=== PATIENT | female | born 1965 | race Caucasian/White ===

== ENCOUNTER 2018-10-28 14:27 | Inpatient (IN) | payer OTHER ==
[~2018-10-28] VITALS: Ht 154.9 cm; Wt 106.4 kg
[2018-10-28 19:52] VITALS: PULSE 91
[2018-10-28 20:00] VITALS: BP 133/77; PULSE 87; PULSE 95; RESP 18
[2018-10-28 20:11] VITALS: Ht 154.9 cm; Wt 106.4 kg
[2018-10-28] MEDS ORDERED: ACET1TAB40 PO (20:24)
[2018-10-28] MEDS ORDERED: AZIT250T13 PO (20:24)
[2018-10-28] MEDS ORDERED: ENOX40DI12 SQ (20:24)
[2018-10-28] MEDS ORDERED: MONT10TA24 PO (20:24)
[2018-10-28] MEDS ORDERED: BUDE0.5A INHALATION (20:24)
[2018-10-28] MEDS ORDERED: DOCU-144 PO (20:24)
[2018-10-28] MEDS ORDERED: NYST50002 PO (20:24)
[2018-10-28] MEDS ORDERED: PRED20TA PO (20:24)
[2018-10-28] MEDS ORDERED: ALBU2.5V3 NEB (20:24)
[2018-10-28] MEDS ORDERED: ONDANSETRON 4 MG INJ IV PRN (20:30)
[2018-10-28] MEDS ORDERED: hydrALAzine 20 MG INJ IV PRN (20:30)
[2018-10-28] MEDS ORDERED: ALBUTEROL/IPRATROPIUM (NEB) 3 ML AMP HHN PRN (20:30)
[2018-10-28] MEDS ORDERED: ACETAMINOPHEN 325 MG TAB PO PRN (20:30)
[2018-10-28] MEDS: NYSTATIN SUSP 5 ML CUP PO SCH (21:29)
[2018-10-28] MEDS: DOCUSATE SODIUM 100 MG CAP PO SCH (22:28)
[2018-10-28] MEDS: MONTELUKAST 10 MG TAB PO SCH (22:28)
[2018-10-28] MEDS: HYDROCODONE/APAP (5/325) TAB PO SCH (22:29)
[2018-10-28] MEDS: ALBUTEROL 0.083% (NEB) 2.5 MG/3 ML AMP NEB SCH (22:39)
[2018-10-28] MEDS: BUDESONIDE (NEB) 0.5MG/2ML AMP NEB SCH (22:41)
[2018-10-28 23:00] VITALS: PULSE 105
[2018-10-29] VITALS (9 sets, daily range): BP systolic 128–165; BP diastolic 75–86; PULSE 88–104; RESP 18–19
[2018-10-29] MEDS: ALBUTEROL 0.083% (NEB) 2.5 MG/3 ML AMP NEB SCH ×2 (03:41→07:43)
[2018-10-29] MEDS: DOCUSATE SODIUM 100 MG CAP PO SCH ×2 (08:09→21:00)
[2018-10-29] MEDS: predniSONE 20 MG TAB PO SCH (08:09)
[2018-10-29] MEDS: NYSTATIN SUSP 5 ML CUP PO SCH ×4 (08:09→20:56)
[2018-10-29] MEDS: HYDROCODONE/APAP (5/325) TAB PO SCH ×3 (08:09→20:55)
[2018-10-29] MEDS: AZITHROMYCIN 250 MG TAB PO SCH (08:09)
[2018-10-29] MEDS ORDERED: ENOXAPARIN 40 MG/0.4 ML SYG SC SCH (09:00)
[2018-10-29] MEDS: BUDESONIDE (NEB) 0.5MG/2ML AMP NEB SCH ×2 (09:46→21:09)
[2018-10-29] MEDS ORDERED: KETOROLAC 15 MG INJ IV PRN (11:00)
--- NOTE | 2018-10-29 11:00 | QN ---
Documentation Comment seen and examined AMERICO MCCLAIN MD Oct 29, 2018 11:00
--- NOTE | 2018-10-29 11:14 | CONS ---
Assessment/Plan Assessment/Plan Assessment/Plan (Daily) Chest x-ray and labs are pending. Assessment and recommendations; 1. Patient admitted for acute bronchitis and asthma exacerbation as she ran out of her medications at home. Currently on appropriate treatment regimen. Continue current supportive care. Further recommendations once chest x-ray and lab results are obtained. Patient likely will need to have a sleep study done. Consultation Date/Type/Reason Admit Date/Time Oct 28, 2018 at 18:39 Date of Consultation: Oct 29, 2018 Type of Consult Pulmonary Pulmonary consult requested for evaluation of asthma exacerbation with acute b ronchitis. Patient is a pleasant 53-year-old lady who came into the hospital yesterday with a 5-day history of increasing chest congestion wheezing shortness of breath. According to patient she ran out of her inhalers about a week ago with increasing symptoms. Patient also was admitted at [facility] last week for 2 days and was discharged home in stable condition but again her condition became worse requiring her to come back to the hospital and was subsequently admitted. According to her she is feeling better since admission. Denies any chest pain, fever, chills, body aches or myalgias. Shortness of breath, coughing and wheezing have improved. According to the patient she is in usually good health and her asthma is well controlled as long as she takes her medications regularly. Past medical history; 1. Lifelong asthma. 2. History of hypertension. Medications; reviewed. Allergies; as outlined above. Social history; remote history of scant smoking. Family history; patient is single, lives with her daughter. Has 3 children. Occupational history; patient is on disability. Review of systems; denies any headache, seizures, sinus symptoms. Any postnasal drip. Any visual changes. Denies any sore throat, chest pain, angina, coughing, shortness of breath and wheezing have improved. Complains of very scant clear sputum production. Denies any fever or chills. Denies any abdominal pain, nausea vomiting. Any melena or hematochezia. Any orthopnea. Denies any edema. Any weight change. Any urinary symptoms. Does complain of loud snoring and excessive daytime sleepiness. General exam; middle-aged female, awake alert, currently in no distress. Date/Time of Note DATE: 10/29/18 TIME: 11:10 Past Medical History Home Meds Reported Medications Prednisone* (Prednisone*) 20 Mg Tab, 40 MG PO DAILY, TAB 10/28/18 Nystatin (Nystatin) 500,000 Unit Tablet, [id number] UNIT PO QID, TAB 10/28/18 Montelukast Sodium* (Montelukast Sodium*) 10 Mg Tablet, 10 MG PO QHS, #30 TAB 10/28/18 Enoxaparin Sodium (Enoxaparin Sodium) 40 Mg/0.4 Ml Syringe, 40 MG SQ DAILY, SYR 10/28/18 Docusate Sodium* (Colace*) 100 Mg Capsule, 100 MG PO BID, #60 CAP 10/28/18 Azithromycin* (Azithromycin*) 250 Mg Tablet, 250 MG PO DAILY, #4 TAB 10/28/18 Albuterol Sulfate* (Albuterol Sulfate* Neb) 0.083%-3 Ml Neb, 2.5 MG NEB Q6, #30 VIAL 10/28/18 Budesonide* (Budesonide*) 0.5 Mg/2 Ml Ampul.neb, 0.5 MG INHALATION BID, AMP 10/28/18 Acetaminophen with Codeine (Acetaminophen-Cod #3 Tablet) 1 Each Tablet, 1 TAB PO TID, #7 TAB 10/28/18 Medications Current Medications Acetaminophen/ Hydrocodone Bitart ([place] (5/325)) 1 tab TID PO Last administered on 10/29/18 08:09; Admin Dose 1 TAB; Start 10/28/18 at 22:00 Albuterol (Proventil 0.083% (Neb)) 2.5 mg Q6H RESP THERAPY NEB Last administered on 10/29/18at 07:43; Admin Dose 2.5 MG; Start 10/28/18 at 21:20 Azithromycin (Zithromax) 250 mg DAILY PO Last administered on 10/29/18 08:09; Admin Dose 250 MG; Start 10/29/18 at 09:00 Budesonide (Pulmicort (Neb)) 0.5 mg BID RESP THERAPY NEB Last administered on 10/29/18 09:46; Admin Dose 0.5 MG; Start 10/28/18 at 21:21 Docusate Sodium (Colace) 100 mg BID PO Last administered on 10/29/18 08:09; Admin Dose 100 MG; Start 10/28/18 at 21:00 Enoxaparin Sodium (Lovenox) 40 mg DAILY SC Last administered on 10/29/18at 0 9:04; Admin Dose 40 MG; Start 10/29/18 at 09:00 Montelukast Sodium (Singulair) 10 mg QHS PO Last administered on 10/28/18at 22:2 8; Admin Dose 10 MG; Start 10/28/18 at 21:00 Prednisone (Prednisone) 40 mg DAILY PO Last administered on 10/29/18at 08:09; Admin Dose 40 MG; Start 10/29/18 at 09:00 Nystatin (Nystatin Susp) 5 ml QID PO Last administered on 10/29/18at 08:09; Admin Dose 5 ML; Start 10/28/18 at 21:29 Acetaminophen (Tylenol Tab) 650 mg Q4H PRN PO MILD PAIN(1-3)OR ELEVATED TEMP; Start 10/28/18 at 20:30 Acetaminophen/ Hydrocodone Bitart ([place] (5/325)) 1 tab Q6H PRN PO MODERATE PAIN LEVEL 4-6; Start 10/28/18 at 20:30 Hydralazine HCl (Apresoline) 10 mg Q6H PRN IV SBP > 160; Start 10/28/18 at 20:30 Ondansetron HCl (Zofran Inj) 4 mg Q4H PRN IV NAUSEA AND/OR VOMITING; Start 10/28/18 at 20:30 Ketorolac Tromethamine (Toradol) 15 mg Q8 PRN IV PAIN; Start 10/29/18 at 11:00; Stop 11/01/18 at 10:59; Status UNV Albuterol (Proventil 0.083% (Neb)) 2.5 mg Q4H RESP THERAPY HHN ; Start 10/29/18 at 13:00; Status UNV Ipratropium [place] (Atrovent 0.02% (Neb)) 0.5 mg Q4H RESP THERAPY HHN ; Start 10/29/18 at 13:00; Status UNV Miscellaneous Information (* Miscellaneous Pharmacy Order) Discontinue current oral sulfonylur... ONCE ONCE XX ; Start 10/29/18 at 11:30; Stop 10/29/18 at 11:31; Status UNV Diagnostic Test (Pha) (Accu-Chek) 1 ea 02 XX ; Start 10/30/18 at 02:00; Status UNV Miscellaneous Information (* Miscellaneous Pharmacy Order) HYPOGLYCEMIA PROTOCOL w... ONCE ONCE XX ; Start 10/29/18 at 11:30; Stop 10/29/18 at 11:31; Status UNV Insulin Aspart (Novolog Insulin Pen) NOVOLOG *MILD* ALGORITHM WITH MEALS BEDTIME SC ; Start 10/29/18 at 11:50; Status UNV Miscellaneous Information (* Miscellaneous Pharmacy Order) Discontinue all previ... ONCE ONCE XX ; Start 10/29/18 at 11:30; Stop 10/29/18 at 11:31; Status UNV Allergies: Coded Allergies: lorazepam (Verified Allergy, Unknown, 10/28/18) Social History Smoking Status: Never smoker Exam/Review of Systems Exam Vitals Vital Signs Date Temp Pulse Resp B/P (MAP) Pulse Ox O2 O2 Flow FiO2 Time Delivery Rate 10/29/18 95 16 94 Nasal 4.0 09:46 Cannula 10/29/18 98.3 128/86 07:50 (100) 10/29/18 33 03:41 Intake and Output 10/28/18 10/28/18 10/29/18 1515:00 23:00 07:00 IntakeIntake Total 650 ml BalanceBalance 650 ml Exam H EENT exam; supple neck, no JVD. No lymphadenopathy. Midline trachea. No thyromegaly. Patient has carious teeth. Pupils are small bilaterally. Chest exam; diminished breath sounds throughout with mild expiratory wheezing bilaterally. S1-S2 audible, no murmurs. Regular rhythm. Abdomen exam; soft, nontender. No organomegaly. Bowel sounds audible. Extremity exam; no peripheral edema or clubbing. [employer] exam; no focal deficit. Medications Medication Current Medications Acetaminophen/ Hydrocodone Bitart ([place] (5/325)) 1 tab TID PO Last administered on 10/29/18 08:09; Admin Dose 1 TAB; Start 10/28/18 at 22:00 Albuterol (Proventil 0.083% (Neb)) 2.5 mg Q6H RESP THERAPY NEB Last administered on 10/29/18at 07:43; Admin Dose 2.5 MG; Start 10/28/18 at 21:20 Azithromycin (Zithromax) 250 mg DAILY PO Last administered on 10/29/18 08:09; Admin Dose 250 MG; Start 10/29/18 at 09:00 Budesonide (Pulmicort (Neb)) 0.5 mg BID RESP THERAPY NEB Last administered on 10/29/18 09:46; Admin Dose 0.5 MG; Start 10/28/18 at 21:21 Docusate Sodium (Colace) 100 mg BID PO Last administered on 10/29/18 08:09; Admin Dose 100 MG; Start 10/28/18 at 21:00 Enoxaparin Sodium (Lovenox) 40 mg DAILY SC Last administered on 10/29/18 09:04; Admin Dose 40 MG; Start 10/29/18 at 09:00 Montelukast Sodium (Singulair) 10 mg QHS PO Last administered on 10/28/18 22:28; Admin Dose 10 MG; Start 10/28/18 at 21:00 Prednisone (Prednisone) 40 mg DAILY PO Last administered on 10/29/18 08:09; Admin Dose 40 MG; Start 10/29/18 at 09:00 Nystatin (Nystatin Susp) 5 ml QID PO Last administered on 10/29/18 08:09; Admin Dose 5 ML; Start 10/28/18 at 21:29 Acetaminophen (Tylenol Tab) 650 mg Q4H PRN PO MILD PAIN(1-3)OR ELEVATED TEMP; Start 10/28/18 at 20:30 Acetaminophen/ Hydrocodone Bitart ([place] (5/325)) 1 tab Q6H PRN PO MODERATE PAIN LEVEL 4-6; Start 10/28/18 at 20:30 Hydralazine HCl (Apresoline) 10 mg Q6H PRN IV SBP > 160; Start 10/28/18 at 20:30 Ondansetron HCl (Zofran Inj) 4 mg Q4H PRN IV NAUSEA AND/OR VOMITING; Start 10/28/18 at 20:30 Ketorolac Tromethamine (Toradol) 15 mg Q8 PRN IV PAIN; Start 10/29/18 at 11:00; Stop 11/01/18 at 10:59; Status UNV Albuterol (Proventil 0.083% (Neb)) 2.5 mg Q4H RESP THERAPY HHN ; Start 10/29/18 at 13:00; Status UNV Ipratropium [place] (Atrovent 0.02% (Neb)) 0.5 mg Q4H RESP THERAPY HHN ; Start 10/29/18 at 13:00; Status UNV Miscellaneous Information (* Miscellaneous Pharmacy Order) Discontinue current oral sulfonylur... ONCE ONCE XX ; Start 10/29/18 at 11:30; Stop 10/29/18 at 11:31; Status UNV Diagnostic Test (Pha) (Accu-Chek) XX ; Start 10/30/18 at 02:00; Status UNV Miscellaneous Information (* Miscellaneous Pharmacy Order) HYPOGLYCEMIA PROTOCOL w... ONCE ONCE XX ; Start 10/29/18 at 11:30; Stop 10/29/18 at 11:31; Status UNV Insulin Aspart (Novolog Insulin Pen) NOVOLOG *MILD* ALGORITHM WITH MEALS BEDTIME SC ; Start 10/29/18 at 11:50; Status UNV Miscellaneous Information (* Miscellaneous Pharmacy Order) Discontinue all previ... ONCE ONCE XX ; Start 10/29/18 at 11:30; Stop 10/29/18 at 11:31; Status UNV MARCIA SILVA Oct 29, 2018 11:14
[2018-10-29] MEDS ORDERED: DEXTROSE 50% 50 ML SYRINGE IV PRN ×2 (11:30)
[2018-10-29] MEDS ORDERED: GLUCOSE GEL 15 GRAM TUBE PO PRN ×2 (11:30)
[2018-10-29] MEDS ORDERED: GLUCAGON 1 MG INJ IM PRN (11:30)
[2018-10-29] MEDS ORDERED: GLUCOSE GEL 15 GRAM TUBE BUCCAL PRN (11:30)
--- NOTE | 2018-10-29 11:32 | HP ---
DATE OF ADMISSION: 10/28/2018 CHIEF COMPLAINT: Shortness of breath, respiratory distress. HISTORY OF PRESENT ILLNESS: A 53-year-old female with a past medical history of COPD/sleep apnea, as thma, morbid obesity, hypertension who presented to the emergency department at [facility] o n 10/22/2018 secondary to respiratory distress. The patient was recently admitted there and after sh e was discharged she stayed 3 days out of the hospital. After that, she went back again as she was h aving chest tightness, wheezing. She called the paramedics and she was noted to be blue and having t rouble breathing. Since then, the patient has been in [facility]. There the patient was fo und to have a white count of 10.7, hemoglobin 18.3. Chest x-ray showed no cardiomegaly, no infiltrat e, no pulmonary vascular congestions. EKG was within normal limits. The patient was started on nebs around the clock started on IV antibiotics and steroids. The patient continues to be in respiratory distress requiring BiPAP and high amount of oxygen. Finally, the patient was stable and was transfe rred to [facility] on 10/28/2018 secondary to insurance reasons. The patient had a lso been followed by pulmonary there. Currently, the patient feels much better. The patient is able to speak full sentences, complaining of slight shortness of breath. She denies any cough, any fever s and chills. PAST MEDICAL HISTORY: 1. Asthma. 2. Chronic obstructive pulmonary disease. 3. Cushingoid side effect of the steroids. 4. Hypertension. 5. History of migraines. 6. History of morbid obesity. 7. History of neck pain. PAST SURGICAL HISTORY: , left foot bunion surgery. ALLERGIES: 1. LEVOFLOXACIN 2. LORAZEPAM. SOCIAL HISTORY: The patient is an ex-smoker, smoked 1 pack per day for many years, quit many years a go. She denied any history of alcohol or any recreational drug use. Currently she is , live s with her daughter in [facility]. The patient was visiting her family here when she had come to the hospital. REVIEW OF SYSTEMS: The patient denies any shortness of breath, any cough, any abdominal pain, nausea , vomiting, diarrhea. She denies any headache. Patient has generalized body ache. She denies any h ematemesis, any melena, any bright or rectum. PHYSICAL EXAMINATION: VITAL SIGNS: Currently, blood pressure 128/86, afebrile, heart rate 88, respirations 18, saturating 95% on 4 liters. GENERAL: The patient is awake, alert, oriented. He is able to speak full sentences, slightly tachyp neic. HEENT: Normocephalic, atraumatic. Extraocular movements are intact. NECK: Thick. LUNGS: Decreased breath sounds bilaterally with few scattered rhonchi. HEART: Tachycardic. ABDOMEN: Obese, soft, nontender, nondistended. EXTREMITIES: No clubbing, cyanosis, or edema. However, the patient has multiple bruising noted of t he bilateral hands. DIAGNOSTIC DATA: At [facility] showed white count of 5.7, hemoglobin 16.9, hematocrit 51, p latelet count 122. Sodium 139, potassium 3.6, chloride 97, bicarbonate 31, BUN of 27, creatinine 0.3 . ASSESSMENT: This is a 53-year-old female presenting with: 1. Acute on chronic respiratory failure with hypercapnia and hypoxemia likely secondary to underlyin g chronic obstructive pulmonary disease. 2. Morbid obesity. 3. Hyperglycemia, likely secondary to steroids. 4. Polycythemia, likely to chronic hypoxemia. 5. History of metabolic alkalosis. 6. History of asthma. 7. Hypertension. 8. History of migraines. PLAN: At this period of time, the patient is admitted to telemetry. We will get labs. The patient will be continued on prednisone, antibiotics and nebs around the clock. We will also get a chest x-r ay. Pulmonary consultation has been requested. Rest of the treatment will depend on the patient's h ospitalization course. Dictated By: AMERICO MCCLAIN RB/ED Conf#: [id number] DID#: [id number] CC: LOUIS LOPEZ MD; RONAK RUIZ MD;*[facility]*
[2018-10-29] MEDS: INSULIN ASPART [NOVOLOG] 3 ML PEN SC SCH ×3 (12:15→21:00)
[2018-10-29] MEDS: IPRATROPIUM (NEB) 0.5 MG/2.5 ML AMP HHN SCH ×3 (13:13→21:09)
[2018-10-29] MEDS: ALBUTEROL 0.083% (NEB) 2.5 MG/3 ML AMP HHN SCH ×3 (13:13→21:09)
[2018-10-29] MEDS: GUAIFENESIN/DM 5ML CUP PO PRN (13:53)
[2018-10-29] MEDS: MONTELUKAST 10 MG TAB PO SCH (20:56)
[2018-10-30] VITALS (12 sets, daily range): BP systolic 98–164; BP diastolic 56–97; PULSE 84–120; RESP 18–20
[2018-10-30] MEDS: ALBUTEROL 0.083% (NEB) 2.5 MG/3 ML AMP HHN SCH ×6 (00:51→20:22)
[2018-10-30] MEDS: IPRATROPIUM (NEB) 0.5 MG/2.5 ML AMP HHN SCH ×6 (00:51→20:22)
[2018-10-30] MEDS: ACCU-CHEK XX SCH (02:00)
[2018-10-30] MEDS: HYDROCODONE/APAP (5/325) TAB PO PRN (07:06)
[2018-10-30] MEDS: DOCUSATE SODIUM 100 MG CAP PO SCH ×2 (07:41→21:13)
[2018-10-30] MEDS: INSULIN ASPART [NOVOLOG] 3 ML PEN SC SCH ×4 (07:41→21:15)
[2018-10-30] MEDS: BUDESONIDE (NEB) 0.5MG/2ML AMP NEB SCH ×2 (08:22→20:23)
[2018-10-30] MEDS: AZITHROMYCIN 250 MG TAB PO SCH (08:46)
[2018-10-30] MEDS: NYSTATIN SUSP 5 ML CUP PO SCH ×4 (08:46→21:14)
[2018-10-30] MEDS: CEFTRIAXONE 1 GM/50 ML (PMX) 50 ML IVPB SCH (08:47)
[2018-10-30] MEDS: predniSONE 20 MG TAB PO SCH (08:47)
[2018-10-30] MEDS: GUAIFENESIN/DM 5ML CUP PO PRN (08:47)
[2018-10-30] MEDS: HYDROCODONE/APAP (5/325) TAB PO SCH ×3 (09:00→21:13)
--- NOTE | 2018-10-30 10:24 | PN ---
Date/Time of Note Date/Time of Note DATE: 10/30/18 TIME: 10:22 Assessment/Plan VTE Prophylaxis Risk score (from Nsg)>0 risk: 6 SCD applied (from Nsg): Yes Pharmacological prophylaxis: NA/contraindicated Pharm contraindication: low risk/ambulating Lines/Catheters IV Catheter Type (from Nrsg): Peripheral IV Urinary Cath still in place: Yes Reason Cath still needed: urinary retention Assessment/Plan Assessment/Plan his is a 53-year-old female presenting with: 1. Acute on chronic respiratory failure with hypercapnia and hypoxemia likely secondary to underlying chronic obstructive pulmonary disease. 2. Morbid obesity. 3. Hyperglycemia, likely secondary to steroids. 4. Polycythemia, likely to chronic hypoxemia. 5. History of metabolic alkalosis. 6. History of asthma. 7. Hypertension. 8. History of migraines. Plan -Chest x-ray shows bilateral opacities secondary to pneumonia versus CHF -Add Rocephin continue with azithromycin -We will get echo -Change prednisone to Solu-Medrol secondary to worsening lung exam -Continue with nebs [id number] -Insulin sliding scale -Repeat ABG -Pulmonary recs -Refuses Lovenox due to bruising Result Diagram: 10/30/18 0640 10/30/18 0640 Results 24hrs Laboratory Tests Test 10/29/18 11:00 10/29/18 11:41 10/29/18 12:47 10/29/18 17:01 Blood Gas Blood arterial Specimen Source Arterial Blood 10/29/2018 11:25: Date Drawn 37 AM Arterial Blood pH 7.383 (Temp corrected) Arterial Blood 58.9 H pCO2 (Temp correct) Arterial Blood 53.7 *L pO2 (Temp corrected) Arterial Blood 34.3 H HCO3 Arterial Blood 6.7 H Base Excess Arterial Blood 89.4 L Oxygen Saturation Jon Test ACCEPTAB Arterial Blood Right Radial Gas Puncture Site Arterial 0.7 Blood Carboxyhemo globin Arterial Blood 0.3 Methemoglobin Blood Gas A-a O2 91.0 H Differential Oxyhemoglobin 88.5 L Percent Blood Gas 37.0 Temperature Blood Gas NASAL CAN[place]ULA Modality FiO2 30.0 Blood Gas [place] Critical Value Read Back Blood Gas TM Notified Whom Blood Gas 10/29/2018 11:35: Notified Time 16 AM Bedside Glucose 181 138 Sodium Level 138 Potassium Level 4.3 Chloride Level 98 Carbon Dioxide 35 H Level Anion Gap 5 Blood Urea 26 H Nitrogen Creatinine 0.50 Est Glomerular > 60 Filtrat Rate mL/min Glucose Level 225 H Calcium Level 8.9 Test 10/29/18 21:00 10/30/18 06:40 10/30/18 07:40 Bedside Glucose 173 105 White Blood Count 10.3 Red Blood Count 4.82 Hemoglobin 15.0 Hematocrit 46.6 Mean Corpuscular 96.7 Volume Mean Corpuscular 31.1 Hemoglobin Mean Corpuscular 32.2 Hemoglobin Concen t Red Cell 13.7 Distribution Width Platelet Count 178 Mean Platelet 10.1 Volume Immature 1.400 H Granulocytes % Neutrophils % 77.8 H Lymphocytes % 16.5 Monocytes % 3.8 Eosinophils % 0.3 Basophils % 0.2 Nucleated Red 0.0 Blood Cells % Immature 0.140 H Granulocytes # Neutrophils # 8.0 H Lymphocytes # 1.7 Monocytes # 0.4 Eosinophils # 0.0 Basophils # 0.0 Nucleated Red 0.0 Blood Cells # Sodium Level 141 Potassium Level 3.5 Chloride Level 101 Carbon Dioxide 37 H Level Anion Gap 3 L Blood Urea 20 Nitrogen Creatinine 0.40 L Est Glomerular > 60 Filtrat Rate mL/min Glucose Level 103 # Calcium Level 8.5 Subjective 24 Hr Interval Summary Free Text/Dictation Feels extremely weak today, slight shortness of breath Exam/Review of Systems Exam Vitals Vital Signs Date Temp Pulse Resp B/P (MAP) Pulse Ox O2 O2 Flow FiO2 Time Delivery Rate 10/30/18 3.0 08:23 10/30/18 90 08:23 10/30/18 20 92 Nasal 08:23 Cannula 10/30/18 98.1 146/84 07:29 (104) 10/30/18 40 01:05 Intake and Output 10/29/18 10/29/18 10/30/18 1515:00 23:00 07:00 IntakeIntake Total 800 ml 720 ml BalanceBalance 800 ml 720 ml Exam GENERAL: The patient is awake, alert, oriented. He is able to speak full sentences, slightly tachypneic. HEENT: Normocephalic, atraumatic. Extraocular movements are intact. NECK: Thick. LUNGS: Decreased breath sounds bilaterally with b/l rhonchi HEART: Tachycardic. ABDOMEN: Obese, soft, nontender, nondistended. EXTREMITIES: No clubbing, cyanosis, or edema. However, the patient has multiple bruising noted of the bilateral hands. Results Results 24hrs Laboratory Tests Test 10/29/18 11:00 10/29/18 11:41 10/29/18 12:47 10/29/18 17:01 Blood Gas Blood arterial Specimen Source Arterial Blood 10/29/2018 11:25: Date Drawn 37 AM Arterial Blood pH 7.383 (Temp corrected) Arterial Blood 58.9 H pCO2 (Temp correct) Arterial Blood 53.7 *L pO2 (Temp corrected) Arterial Blood 34.3 H HCO3 Arterial Blood 6.7 H Base Excess Arterial Blood 89.4 L Oxygen Saturation Jon Test ACCEPTAB Arterial Blood Right Radial Gas Puncture Site Arterial 0.7 Blood Carboxyhemo globin Arterial Blood 0.3 Methemoglobin Blood Gas A-a O2 91.0 H Differential Oxyhemoglobin 88.5 L Percent Blood Gas 37.0 Temperature Blood Gas [place] Modality FiO2 30.0 Blood Gas [place] Critical Value Read Back Blood Gas TM Notified Whom Blood Gas 10/29/2018 11:35: Notified Time 16 AM Bedside Glucose 181 138 Sodium Level 138 Potassium Level 4.3 Chloride Level 98 Carbon Dioxide 35 H Level Anion Gap 5 Blood Urea 26 H Nitrogen Creatinine 0.50 Est Glomerular > 60 Filtrat Rate mL/min Glucose Level 225 H Calcium Level 8.9 Test 10/29/18 21:00 10/30/18 06:40 10/30/18 07:40 Bedside Glucose 173 105 White Blood Count 10.3 Red Blood Count 4.82 Hemoglobin 15.0 Hematocrit 46.6 Mean Corpuscular 96.7 Volume Mean Corpuscular 31.1 Hemoglobin Mean Corpuscular 32.2 Hemoglobin Concen t Red Cell 13.7 Distribution Width Platelet Count 178 Mean Platelet 10.1 Volume Immature 1.400 H Granulocytes % Neutrophils % 77.8 H Lymphocytes % 16.5 Monocytes % 3.8 Eosinophils % 0.3 Basophils % 0.2 Nucleated Red 0.0 Blood Cells % Immature 0.140 H Granulocytes # Neutrophils # 8.0 H Lymphocytes # 1.7 Monocytes # 0.4 Eosinophils # 0.0 Basophils # 0.0 Nucleated Red 0.0 Blood Cells # Sodium Level 141 Potassium Level 3.5 Chloride Level 101 Carbon Dioxide 37 H Level Anion Gap 3 L Blood Urea 20 Nitrogen Creatinine 0.40 L Est Glomerular > 60 Filtrat Rate mL/min Glucose Level 103 # Calcium Level 8.5 Medications Medication Current Medications Acetaminophen/ Hydrocodone Bitart ([place] (5/325)) 1 tab TID PO Last administered on 10/29/18 20:55; Admin Dose 1 TAB; Start 10/28/18 at 22:00 Azithromycin (Zithromax) 250 mg DAILY PO Last administered on 10/30/18 08:46; Admin Dose 250 MG; Start 10/29/18 at 09:00 Budesonide (Pulmicort (Neb)) 0.5 mg BID RESP THERAPY NEB Last administered on 10/30/18 08:22; Admin Dose 0.5 MG; Start 10/28/18 at 21:21 Docusate Sodium (Colace) 100 mg BID PO Last administered on 10/29/18 08:09; Admin Dose 100 MG; Start 10/28/18 at 21:00 Montelukast Sodium (Singulair) 10 mg QHS PO Last administered on 10/29/18 20:56; Admin Dose 10 MG; Start 10/28/18 at 21:00 Nystatin (Nystatin Susp) 5 ml QID PO Last administered on 10/30/18 08:46; Admin Dose 5 ML; Start 10/28/18 at 21:29 Acetaminophen (Tylenol Tab) 650 mg Q4H PRN PO MILD PAIN(1-3)OR ELEVATED TEMP; Start 10/28/18 at 20:30 Acetaminophen/ Hydrocodone Bitart ([place] (5/325)) 1 tab Q6H PRN PO MODERATE PAIN LEVEL 4-6 Last administered on 10/30/18 07:06; Admin Dose 1 TAB; Start 10/28/18 at 20:30 Hydralazine HCl (Apresoline) 10 mg Q6H PRN IV SBP > 160; Start 10/28/18 at 20:30 Ondansetron HCl (Zofran Inj) 4 mg Q4H PRN IV NAUSEA AND/OR VOMITING; Start 10/28/18 at 20:30 Ketorolac Tromethamine (Toradol) 15 mg Q8 PRN IV PAIN; Start 10/29/18 at 11:00; Stop 11/01/18 at 10:59 Albuterol (Proventil 0.083% (Neb)) 2.5 mg Q4H RESP THERAPY HHN Last administered on 10/30/18 08:21; Admin Dose 2.5 MG; Start 10/29/18 at 13:00 Ipratropium [place] (Atrovent 0.02% (Neb)) 0.5 mg Q4H RESP THERAPY HHN Last administered on 10/30/18 08:21; Admin Dose 0.5 MG; Start 10/29/18 at 13:00 Diagnostic Test (Pha) (Accu-Chek) 1 ea 02 XX ; Start 10/30/18 at 02:00 Insulin Aspart (Novolog Insulin Pen) NOVOLOG *MILD* ALGORITHM WITH MEALS BEDTIME SC Last administered on 10/29/18 12:15; Admin Dose 2 UNIT; Start 10/29/18 at 12:30 Miscellaneous Information 1 ea NOTE XX ; Start 10/29/18 at 11:30 Glucose (Glutose) 15 gm Q15M PRN PO DECREASED GLUCOSE; Start 10/29/18 at 11:30 Glucose (Glutose) 22.5 gm Q15M PRN PO DECREASED GLUCOSE; Start 10/29/18 at 11:30 Dextrose (D50w Syringe) 25 ml Q15M PRN IV DECREASED GLUCOSE; Start 10/29/18 at 11:30 Dextrose (D50w Syringe) 50 ml Q15M PRN IV DECREASED GLUCOSE; Start 10/29/18 at 11:30 Glucagon (Glucagen) 1 mg Q15M PRN IM DECREASED GLUCOSE; Start 10/29/18 at 11:30 Glucose (Glutose) 15 gm Q15M PRN BUCCAL DECREASED GLUCOSE; Start 10/29/18 at 11:30 Guaifenesin/ Dextromethorphan (Robitussin Dm Liquid Cup) 10 ml Q4H PRN PO COUGH Last administered on 10/30/18 08:47; Admin Dose 10 ML; Start 10/29/18 at 12:30 Ceftriaxone Sodium 50 ml @ 100 mls/hr Q24H IVPB Last administered on 10/30/18 08:47; Admin Dose 100 MLS/HR; Start 10/30/18 at 08:30 Methylprednisolone Sodium Succinate (Solu-Medrol) 40 mg Q8 IV ; Start 10/30/18 at 14:00; Status AMERICO ESQUIVEL MD Oct 30, 2018 10:24
--- NOTE | 2018-10-30 10:55 | CONS ---
Assessment/Plan Assessment/Plan Assessment/Plan (Daily) Assessment and recommendations; 1. Patient admitted with exacerbation of asthma as well as acute bronchitis as she ran out of her medications at home. Clinically improving on current treatment regimen. 2. History of hypertension. 3. Likely chronic type II respiratory failure. 4. Likely underlying sleep apnea as well. Continue current supportive care. Patient will qualify for BiPAP for home use. Also will need to have a sleep study done as an outpatient. Steroid taper in 24 hours. Consultation Date/Type/Reason Admit Date/Time Oct 28, 2018 at 18:39 Initial Consult Date 10/29/18 Type of Consult Pulmonary Pulmonary consult requested for evaluation of asthma exacerbation with acute bronchitis. Patient is a pleasant 53-year-old lady who came into the hospital yesterday with a 5-day history of increasing chest congestion wheezing shortness of breath. According to patient she ran out of her inhalers about a week ago with increasing symptoms. Patient also was admitted at [facility] last week for 2 days and was discharged home in stable condition but again her condition became worse requiring her to come back to the hospital and was subsequently admitted. According to her she is feeling better since admission. Denies any chest pain, fever, chills, body aches or myalgias. Shortness of breath, coughing and wheezing have improved. According to the patient she is in usually good health and her asthma is well controlled as long as she takes her medications regularly. Past medical history; 1. Lifelong asthma. 2. History of hypertension. Medications; reviewed. Allergies; as outlined above. Social history; remote history of scant smoking. Family history; patient is single, lives with her daughter. Has 3 children. Occupational history; patient is on disability. Review of systems; denies any headache, seizures, sinus symptoms. Any postnasal drip. Any visual changes. Denies any sore throat, chest pain, angina, coughing, shortness of breath and wheezing have improved. Complains of very scant clear sputum production. Denies any fever or chills. Denies any abdominal pain, nausea vomiting. Any melena or hematochezia. Any orthopnea. Denies any edema. Any weight change. Any urinary symptoms. Does complain of loud snoring and excessive daytime sleepiness. General exam; middle-aged female, awake alert, currently in no distress. Date/Time of Note DATE: 10/30/18 TIME: 10:53 24 HR Interval Summary Free Text/Dictation Patient's condition is improving. Still complains of mild shortness of breath. Complains of coughing without any sputum production. Denies any fever or chills. General exam; middle-aged female, awake and alert. Currently in no distress. Exam/Review of Systems Exam Vitals Vital Signs Date Temp Pulse Resp B/P (MAP) Pulse Ox O2 O2 Flow FiO2 Time Delivery Rate 10/30/18 3.0 08:23 10/30/18 90 08:23 10/30/18 20 92 Nasal 08:23 Cannula 10/30/18 98.1 146/84 07:29 (104) 10/30/18 40 01:05 Intake and Output 10/29/18 10/29/18 10/30/18 1515:00 23:00 07:00 IntakeIntake Total 800 ml 720 ml BalanceBalance 800 ml 720 ml Exam HEENT exam; supple neck, no lymphadenopathy. Midline trachea. No thyromegaly. Patient does have multiple carious teeth. Chest exam; diminished breath sounds bilaterally. S1-S2 audible, no murmurs. Regular rhythm. Abdomen exam; soft, protuberant. Nontender. No organomegaly. Bowel sounds audible. Extremity exam; trace edema with multiple ecchymosis. 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 Results Result Diagram: 10/30/18 0640 10/30/18 0640 Results 24hrs Laboratory Tests Test 10/29/18 11:00 10/29/18 11:41 10/29/18 12:47 10/29/18 17:01 Blood Gas Blood arterial Specimen Source Arterial Blood 10/29/2018 11:25: Date Drawn 37 AM Arterial Blood pH 7.383 (Temp corrected) Arterial Blood 58.9 H pCO2 (Temp correct) Arterial Blood 53.7 *L pO2 (Temp corrected) Arterial Blood 34.3 H HCO3 Arterial Blood 6.7 H Base Excess Arterial Blood 89.4 L Oxygen Saturation Jon Test ACCEPTAB Arterial Blood Right Radial Gas Puncture Site Arterial 0.7 Blood Carboxyhemo globin Arterial Blood 0.3 Methemoglobin Blood Gas A-a O2 91.0 H Differential Oxyhemoglobin 88.5 L Percent Blood Gas 37.0 Temperature Blood Gas NASAL CANNULA Modality FiO2 30.0 Blood Gas S.DENNY RN Critical Value Read Back Blood Gas TM Notified Whom Blood Gas 10/29/2018 11:35: Notified Time 16 AM Bedside Glucose 181 138 Sodium Level 138 Potassium Level 4.3 Chloride Level 98 Carbon Dioxide 35 H Level Anion Gap 5 Blood Urea 26 H Nitrogen Creatinine 0.50 Est Glomerular > 60 Filtrat Rate mL/min Glucose Level 225 H Calcium Level 8.9 Test 10/29/18 21:00 10/30/18 06:40 10/30/18 07:40 Bedside Glucose 173 105 White Blood Count 10.3 Red Blood Count 4.82 Hemoglobin 15.0 Hematocrit 46.6 Mean Corpuscular 96.7 Volume Mean Corpuscular 31.1 Hemoglobin Mean Corpuscular 32.2 Hemoglobin Concen t Red Cell 13.7 Distribution Width Platelet Count 178 Mean Platelet 10.1 Volume Immature 1.400 H Granulocytes % Neutrophils % 77.8 H Lymphocytes % 16.5 Monocytes % 3.8 Eosinophils % 0.3 Basophils % 0.2 Nucleated Red 0.0 Blood Cells % Immature 0.140 H Granulocytes # Neutrophils # 8.0 H Lymphocytes # 1.7 Monocytes # 0.4 Eosinophils # 0.0 Basophils # 0.0 Nucleated Red 0.0 Blood Cells # Sodium Level 141 Potassium Level 3.5 Chloride Level 101 Carbon Dioxide 37 H Level Anion Gap 3 L Blood Urea 20 Nitrogen Creatinine 0.40 L Est Glomerular > 60 Filtrat Rate mL/min Glucose Level 103 # Calcium Level 8.5 Medications Medication Current Medications Acetaminophen/ Hydrocodone Bitart ([place] (5/325)) 1 tab TID PO Last administered on 10/29/18at 20:55; Admin Dose 1 TAB; Start 10/28/18 at 22:00 Azithromycin (Zithromax) 250 mg DAILY PO Last administered on 10/30/18at 08:46; Admin Dose 250 MG; Start 10/29/18 at 09:00 Budesonide (Pulmicort (Neb)) 0.5 mg BID RESP THERAPY NEB Last administered on 10/30/18at 08:22; Admin Dose 0.5 MG; Start 10/28/18 at 21:21 Docusate Sodium (Colace) 100 mg BID PO Last administered on 10/29/18at 08:09; Admin Dose 100 MG; Start 10/28/18 at 21:00 Montelukast Sodium (Singulair) 10 mg QHS PO Last administered on 10/29/18 20:56; Admin Dose 10 MG; Start 10/28/18 at 21:00 Nystatin (Nystatin Susp) 5 ml QID PO Last administered on 10/30/18 08:46; Admin Dose 5 ML; Start 10/28/18 at 21:29 Acetaminophen (Tylenol Tab) 650 mg Q4H PRN PO MILD PAIN(1-3)OR ELEVATED TEMP; Start 10/28/18 at 20:30 Acetaminophen/ Hydrocodone Bitart ([place] (5/325)) 1 tab Q6H PRN PO MODERATE PAIN LEVEL 4-6 Last administered on 10/30/18 07:06; Admin Dose 1 TAB; Start 10/28/18 at 20:30 Hydralazine HCl (Apresoline) 10 mg Q6H PRN IV SBP > 160; Start 10/28/18 at 20:30 Ondansetron HCl (Zofran Inj) 4 mg Q4H PRN IV NAUSEA AND/OR VOMITING; Start 10/28/18 at 20:30 Ketorolac Tromethamine (Toradol) 15 mg Q8 PRN IV PAIN; Start 10/29/18 at 11:00; Stop 11/01/18 at 10:59 Albuterol (Proventil 0.083% (Neb)) 2.5 mg Q4H RESP THERAPY HHN Last administered on 10/30/18 08:21; Admin Dose 2.5 MG; Start 10/29/18 at 13:00 Ipratropium [place] (Atrovent 0.02% (Neb)) 0.5 mg Q4H RESP THERAPY HHN Last administered on 10/30/18 08:21; Admin Dose 0.5 MG; Start 10/29/18 at 13:00 Diagnostic Test (Pha) (Accu-Chek) 1 ea 02 XX ; Start 10/30/18 at 02:00 Insulin Aspart (Novolog Insulin Pen) NOVOLOG *MILD* ALGORITHM WITH MEALS BEDTIME SC Last administered on 10/29/18 12:15; Admin Dose 2 UNIT; Start 10/29/18 at 12:30 Miscellaneous Information 1 ea NOTE XX ; Start 10/29/18 at 11:30 Glucose (Glutose) 15 gm Q15M PRN PO DECREASED GLUCOSE; Start 10/29/18 at 11:30 Glucose (Glutose) 22.5 gm Q15M PRN PO DECREASED GLUCOSE; Start 10/29/18 at 11:30 Dextrose (D50w Syringe) 25 ml Q15M PRN IV DECREASED GLUCOSE; Start 10/29/18 at 11:30 Dextrose (D50w Syringe) 50 ml Q15M PRN IV DECREASED GLUCOSE; Start 10/29/18 at 11:30 Glucagon (Glucagen) 1 mg Q15M PRN IM DECREASED GLUCOSE; Start 10/29/18 at 11:30 Glucose (Glutose) 15 gm Q15M PRN BUCCAL DECREASED GLUCOSE; Start 10/29/18 at 11:30 Guaifenesin/ Dextromethorphan (Robitussin Dm Liquid Cup) 10 ml Q4H PRN PO COUGH Last administered on 10/30/18at 08:47; Admin Dose 10 ML; Start 10/29/18 at 12:30 Ceftriaxone Sodium 50 ml @ 100 mls/hr Q24H IVPB Last administered on 10/30/18at 08:47; Admin Dose 100 MLS/HR; Start 10/30/18 at 08:30 Methylprednisolone Sodium Succinate (Solu-Medrol) 40 mg Q8 IV ; Start 10/30/18 at 14:00 MARCIA SILVA Oct 30, 2018 10:55
[2018-10-30] MEDS: METHYLPREDNISOLONE 40 MG INJ IV SCH ×2 (13:29→21:14)
--- NOTE | 2018-10-30 16:24 | RADRPT ---
Echocardiogram Report Patient Name: Tiffany RICHMONDtient ID: [id number] : 1965 (53y 10m)Study Date: 10/30/2018 9:35:40 AM Gender: FAccession #: [id number] Tech: Twan Sabillon [facility] Location: [address] Ref.Physician: AMERICO MCCLAIN Height(Cm): BSA: Weight(Kg): Quality: Technically Difficult StudyAccount #: Procedures: Echocardiographic Report: Transthoracic echocardiogram with complete 2D, M-Mode, and doppler examination. Indications: Evaluate Left Ventricular function. Measurements: 2D/M Mode Doppler Measurement Value Normal Range Measurement Value Normal Range LVIDd 2D 4.5 [ 3.8 - 5.2 ] cm AV Mean Skyler 1.4 [ 70.0 - 90.0 ] cm/sec LVIDs 2D 2.5 [ 2.2 - 3.5 ] cm AV Mean PG 9.0 [ 2.0 - 4.0 ] mmHg LVPWd 2D 1.0 [ 0.6 - 0.9 ] cm AV VTI 28.8 cm IVSd 2D 1.3 [ 0.6 - 0.9 ] cm LVOT Peak Skyler 1.2 [ 70.0 - 110.0 ] cm/sec AoR Diam 2D 2.9 [ 2.3 - 3.1 ] cm LVOT Peak PG 6.0 [ 2.0 - 6.0 ] mmHg EDV 2D 92.4 [ 46.0 - 106.0 ] ml MV E Peak Skyler 1.0 [ 60.0 - 130.0 ] cm/sec ESV 2D 22.1 [ 14.0 - 42.0 ] ml MV A Peak Skyler 1.1 [ 100.0 - 120.0 ] cm/sec EF 2D 76.1 [ 54.0 - 74.0 ] percent MV E/A 0.8 [ 0.8 - 1.5 ] ratio LA Dimen 2D 3.2 [ 2.7 - 3.8 ] cm MV Decel Time 201 [ 104 - 258 ] msec Lat E` Skyler 0.1 [ 10.0 - 15.0 ] cm/sec Lateral E/E` 10.8 [ 1.0 - 2.0 ] ratio MV E/A 0.8 [ 0.8 - 1.5 ] ratio TR Peak Skyler 2.1 [ 100.0 - 280.0 ] cm/sec TR Peak PG 18.0 mmHg RVSP 26.0 [ 10.0 - 36.0 ] mmHg Findings: Left Ventricle: Normal left ventricular systolic function. Normal left ventricular cavity size. Sigmoid septum. Ejection fraction is visually estimated at 55-60 %. Tissue Doppler/Mitral Doppler indices are consistent with impaired relaxation (Stage I diastolic dysfunction). Right Ventricle: Normal right ventricular size. Normal right ventricular systolic function. Left Atrium: The left atrium is normal in size. Right Atrium: The right atrium is normal in size. Mitral Valve: Mild mitral leaflet calcification. Mild mitral annular calcification. Trace mitral regurgitation. Aortic Valve: Aortic valve not well visualized. Tricuspid Valve: Normal appearance of the tricuspid valve. Estimated peak PA systolic pressure 26 mmHg. There is trace tricuspid regurgitation. Pulmonic Valve: Pulmonic valve not well visualized. Pericardium: Trivial pericardial effusion. Aorta: Normal aortic root. IVC: Dilated IVC with respiratory collapse consistent with elevated right atrial pressure. Conclusions: TDE with limited views.Normal left ventricular systolic function. Normal left ventricular cavity size. Sigmoid septum. Ejection fraction is visually estimated at 55-60 %. Tissue Doppler/Mitral Doppler indices are consistent with impaired relaxation (Stage I diastolic dysfunction). Mild mitral leaflet calcification. Mild mitral annular calcification. Trace mitral regurgitation. Aortic valve not well visualized but no significant gradient across it would agree against any significant aortic valvular stenotic disease. Normal appearance of the tricuspid valve. Estimated peak PA systolic pressure 26 mmHg. There is trace tricuspid regurgitation. Electronically Signed By: Dago Rangel 2018-10-30 16:23:26 PDT
[2018-10-30] MEDS: MONTELUKAST 10 MG TAB PO SCH (21:13)
[2018-10-31] VITALS (10 sets, daily range): BP systolic 126–161; BP diastolic 75–92; PULSE 80–100; RESP 18–20
[2018-10-31] MEDS: IPRATROPIUM (NEB) 0.5 MG/2.5 ML AMP HHN SCH ×6 (01:19→20:27)
[2018-10-31] MEDS: ALBUTEROL 0.083% (NEB) 2.5 MG/3 ML AMP HHN SCH ×6 (01:19→20:27)
[2018-10-31] MEDS: ACCU-CHEK XX SCH (02:00)
[2018-10-31] MEDS: METHYLPREDNISOLONE 40 MG INJ IV SCH ×2 (05:43→20:52)
[2018-10-31] MEDS: HYDROCODONE/APAP (5/325) TAB PO PRN (05:43)
[2018-10-31] MEDS: INSULIN ASPART [NOVOLOG] 3 ML PEN SC SCH ×4 (08:18→20:52)
[2018-10-31] MEDS: AZITHROMYCIN 250 MG TAB PO SCH (08:31)
[2018-10-31] MEDS: NYSTATIN SUSP 5 ML CUP PO SCH ×4 (08:31→20:51)
[2018-10-31] MEDS: CEFTRIAXONE 1 GM/50 ML (PMX) 50 ML IVPB SCH (08:31)
[2018-10-31] MEDS: DOCUSATE SODIUM 100 MG CAP PO SCH ×2 (08:32→20:51)
[2018-10-31] MEDS: BUDESONIDE (NEB) 0.5MG/2ML AMP NEB SCH ×2 (09:10→20:34)
[2018-10-31] MEDS: HYDROCODONE/APAP (5/325) TAB PO SCH ×3 (09:17→20:52)
[2018-10-31] MEDS ORDERED: ACETAZOLAMIDE 500 MG INJ IV SCH (09:30)
--- NOTE | 2018-10-31 09:36 | PN ---
Date/Time of Note Date/Time of Note DATE: 10/31/18 TIME: 09:36 Assessment/Plan VTE Prophylaxis Risk score (from Ns)>0 risk: 5 SCD applied (from Ns): Yes Pharmacological prophylaxis: NA/contraindicated Pharm contraindication: low risk/ambulating Lines/Catheters IV Catheter Type (from Nrs): [place] Urinary Cath still in place: No Assessment/Plan Hospital Course 53-year-old female presenting with: 1. Acute on chronic respiratory failure with hypercapnia and hypoxemia likely secondary to underlying chronic obstructive pulmonary disease. 2. Morbid obesity. 3. Hyperglycemia, likely secondary to steroids. 4. Polycythemia, likely to chronic hypoxemia. 5. History of metabolic alkalosis. 6. History of asthma. 7. Hypertension. 8. History of migraines. 9 Metabolic alkalosis 10 left groin abscess Plan -Decrease steroids -Agree with IV Rocephin and azithromycin -Send wound cultures from the left groin -ECHO reviewed -Continue with nebs [id number] -Insulin sliding scale -Repeat ABG -Pulmonary recs -Refuses Lovenox due to bruising Result Diagram: 10/30/18 0640 10/30/18 0640 Results 24hrs Laboratory Tests Test 10/30/18 11:33 10/30/18 17:13 10/30/18 21:11 10/31/18 02:28 Bedside Glucose 128 182 202 140 Test 10/31/18 08:00 10/31/18 08:11 Blood Gas Blood arterial Specimen Source Arterial Blood 10/31/2018 7:50:3 Date Drawn 8 AM Arterial Blood pH 7.440 (Temp corrected) Arterial Blood 53.1 H pCO2 (Temp correct) Arterial Blood 55.1 L pO2 (Temp corrected) Arterial Blood 35.3 H HCO3 Arterial Blood 9.1 H Base Excess Arterial Blood 90.1 L Oxygen Saturation Jon Test ACCEPTAB Arterial Blood Left Radial Gas Puncture Site Arterial 0.7 Blood Carboxyhemo globin Arterial Blood 0.1 Methemoglobin Blood Gas A-a O2 96.4 H Differential Oxyhemoglobin 89.4 L Percent Blood Gas 37.0 Temperature Blood Gas NASAL CANNULA Modality FiO2 30.0 Blood Gas TM Notified Whom Blood Gas 10/31/2018 8:02:2 Notified Time 3 AM Bedside Glucose 163 Subjective 24 Hr Interval Summary Free Text/Dictation Feels better today. Told me her abscess on the left groin which is leaking Exam/Review of Systems Exam Vitals Vital Signs Date Temp Pulse Resp B/P (MAP) Pulse Ox O2 O2 Flow FiO2 Time Delivery Rate 10/31/18 3.0 09:10 10/31/18 80 18 93 Nasal 09:10 Cannula 10/31/18 98.4 126/76 07:16 (93) 10/30/18 40 01:05 Intake and Output 10/30/18 10/30/18 10/31/18 1515:00 23:00 07:00 IntakeIntake Total 50 ml 850 ml 800 ml OutputOutput Total 920 ml BalanceBalance 50 ml -70 ml 800 ml Exam GENERAL: The patient is awake, alert, oriented. He is able to speak full se ntences, slightly tachypneic. HEENT: Normocephalic, atraumatic. Extraocular movements are intact. NECK: Thick. LUNGS: Decreased breath sounds bilaterally with b/l rhonchi L improved from yesterday HEART: Tachycardic. ABDOMEN: Obese, soft, nontender, nondistended. EXTREMITIES: No clubbing, cyanosis, or edema. However, the patient has multiple bruising noted of the bilateral hands. Results Results 24hrs Laboratory Tests Test 10/30/18 11:33 10/30/18 17:13 10/30/18 21:11 10/31/18 02:28 Bedside Glucose 128 182 202 140 Test 10/31/18 08:00 10/31/18 08:11 Blood Gas Blood arterial Specimen Source Arterial Blood 10/31/2018 7:50:3 Date Drawn 8 AM Arterial Blood pH 7.440 (Temp corrected) Arterial Blood 53.1 H pCO2 (Temp correct) Arterial Blood 55.1 L pO2 (Temp corrected) Arterial Blood 35.3 H HCO3 Arterial Blood 9.1 H Base Excess Arterial Blood 90.1 L Oxygen Saturation Jon Test ACCEPTAB Arterial Blood Left Radial Gas Puncture Site Arterial 0.7 Blood Carboxyhemo globin Arterial Blood 0.1 Methemoglobin Blood Gas A-a O2 96.4 H Differential Oxyhemoglobin 89.4 L Percent Blood Gas 37.0 Temperature Blood Gas NASAL CANNULA Modality FiO2 30.0 Blood Gas TM Notified Whom Blood Gas 10/31/2018 8:02:2 Notified Time 3 AM Bedside Glucose 163 Medications Medication Current Medications Acetaminophen/ Hydrocodone Bitart ([place] (5/325)) 1 tab TID PO Last administered on 10/31/18 09:17; Admin Dose 1 TAB; Start 10/28/18 at 22:00 Azithromycin (Zithromax) 250 mg DAILY PO Last administered on 10/31/18 08:31; Admin Dose 250 MG; Start 10/29/18 at 09:00 Budesonide (Pulmicort (Neb)) 0.5 mg BID RESP THERAPY NEB Last administered on 10/31/18 09:10; Admin Dose 0.5 MG; Start 10/28/18 at 21:21 Docusate Sodium (Colace) 100 mg BID PO Last administered on 10/31/18 08:32; Admin Dose 100 MG; Start 10/28/18 at 21:00 Montelukast Sodium (Singulair) 10 mg QHS PO Last administered on 10/30/18 21:13; Admin Dose 10 MG; Start 10/28/18 at 21:00 Nystatin (Nystatin Susp) 5 ml QID PO Last administered on 10/31/18 08:31; Admin Dose 5 ML; Start 10/28/18 at 21:29 Acetaminophen (Tylenol Tab) 650 mg Q4H PRN PO MILD PAIN(1-3)OR ELEVATED TEMP; Start 10/28/18 at 20:30 Acetaminophen/ Hydrocodone Bitart ([place] (5/325)) 1 tab Q6H PRN PO MODERATE PAIN LEVEL 4-6 Last administered on 10/31/18 05:43; Admin Dose 1 TAB; Start 10/28/18 at 20:30 Hydralazine HCl (Apresoline) 10 mg Q6H PRN IV SBP > 160; Start 10/28/18 at 20:30 Ondansetron HCl (Zofran Inj) 4 mg Q4H PRN IV NAUSEA AND/OR VOMITING; Start 10/28/18 at 20:30 Ketorolac Tromethamine (Toradol) 15 mg Q8 PRN IV PAIN; Start 10/29/18 at 11:00; Stop 11/01/18 at 10:59 Albuterol (Proventil 0.083% (Neb)) 2.5 mg Q4H RESP THERAPY HHN Last administered on 10/31/18 09:08; Admin Dose 2.5 MG; Start 10/29/18 at 13:00 Ipratropium [place] (Atrovent 0.02% (Neb)) 0.5 mg Q4H RESP THERAPY HHN Last administered on 10/31/18at 09:08; Admin Dose 0.5 MG; Start 10/29/18 at 13:00 Diagnostic Test (Pha) (Accu-Chek) 1 ea 02 XX ; Start 10/30/18 at 02:00 Insulin Aspart (Novolog Insulin Pen) NOVOLOG *MILD* ALGORITHM WITH MEALS BEDTIME SC Last administered on 10/31/18at 08:18; Admin Dose 1 UNIT; Start 10/29/18 at 12:30 Miscellaneous Information 1 ea NOTE XX ; Start 10/29/18 at 11:30 Glucose (Glutose) 15 gm Q15M PRN PO DECREASED GLUCOSE; Start 10/29/18 at 11:30 Glucose (Glutose) 22.5 gm Q15M PRN PO DECREASED GLUCOSE; Start 10/29/18 at 11:30 Dextrose (D50w Syringe) 25 ml Q15M PRN IV DECREASED GLUCOSE; Start 10/29/18 at 11:30 Dextrose (D50w Syringe) 50 ml Q15M PRN IV DECREASED GLUCOSE; Start 10/29/18 at 11:30 Glucagon (Glucagen) 1 mg Q15M PRN IM DECREASED GLUCOSE; Start 10/29/18 at 11:30 Glucose (Glutose) 15 gm Q15M PRN BUCCAL DECREASED GLUCOSE; Start 10/29/18 at 11:30 Guaifenesin/ Dextromethorphan (Robitussin Dm Liquid Cup) 10 ml Q4H PRN PO COUGH Last administered on 10/30/18at 08:47; Admin Dose 10 ML; Start 10/29/18 at 12:30 Ceftriaxone Sodium 50 ml @ 100 mls/hr Q24H IVPB Last administered on 10/31/18 08:31; Admin Dose 100 MLS/HR; Start 10/30/18 at 08:30 Methylprednisolone Sodium Succinate (Solu-Medrol) 40 mg Q8 IV Last administered on 10/31/18at 05:43; Admin Dose 40 MG; Start 10/30/18 at 14:00 Acetazolamide (Diamox) 500 mg ONCE IV ; Start 10/31/18 at 09:30; Stop 10/31/18 at 12:00 AMERICO MCCLAIN MD Oct 31, 2018 09:36
--- NOTE | 2018-10-31 11:20 | CONS ---
Assessment/Plan Assessment/Plan Assessment/Plan (Daily) Assessment recommendations; 1. Patient admitted with flareup of asthma as she ran out of her medications for a week prior to admission, clinically markedly improved on current treatment regimen. 2. Stable hypertension. 3. Likely underlying sleep apnea. 4. Possibly chronic type II respiratory failure. Continue current supportive care. We will obtain ABG. If the patient has persistent hypercapnia then she would qualify for home BiPAP. Consultation Date/Type/Reason Admit Date/Time Oct 28, 2018 at 18:39 Initial Consult Date 10/29/18 Type of Consult Pulmonary Pulmonary consult requested for evaluation of asthma exacerbation with acute bronchitis. Patient is a pleasant 53-year-old lady who came into the hospital yesterday with a 5-day history of increasing chest congestion wheezing shortness of breath. According to patient she ran out of her inhalers about a week ago with increasing symptoms. Patient also was admitted at [facility] last week for 2 days and was discharged home in stable condition but again her condition became worse requiring her to come back to the hospital and was subsequently admitted. According to her she is feeling better since admission. Denies any chest pain, fever, chills, body aches or myalgias. Shortness of breath, coughing and wheezing have improved. According to the patient she is in usually good health and her asthma is well controlled as long as she takes her medications regularly. Past medical history; 1. Lifelong asthma. 2. History of hypertension. Medications; reviewed. Allergies; as outlined above. Social history; remote history of scant smoking. Family history; patient is single, lives with her daughter. Has 3 children. Occupational history; patient is on disability. Review of systems; denies any headache, seizures, sinus symptoms. Any postnasal drip. Any visual changes. Denies any sore throat, chest pain, angina, coughing, shortness of breath and wheezing have improved. Complains of very scant clear sputum production. Denies any fever or chills. Denies any abdominal pain, nausea vomiting. Any melena or hematochezia. Any orthopnea. Denies any edema. Any weight change. Any urinary symptoms. Does complain of loud snoring and excessive daytime sleepiness. General exam; middle-aged female, awake alert, currently in no distress. Date/Time of Note DATE: 10/31/18 TIME: 11:18 24 HR Interval Summary Free Text/Dictation Patient's condition is continually improving. Patient reports marked reduction in shortness of breath. Denies any coughing, wheezing, sputum production. Patient also has been ambulatory in the room. General exam; middle-aged female, awake alert, currently in no distress. Exam/Review of Systems Exam Vitals Vital Signs Date Temp Pulse Resp B/P (MAP) Pulse Ox O2 O2 Flow FiO2 Time Delivery Rate 10/31/18 Nasal 4.0 10:50 Cannula 10/31/18 80 18 93 09:10 10/31/18 98.4 126/76 07:16 (93) 10/30/18 40 01:05 Intake and Output 10/30/18 10/30/18 10/31/18 1515:00 23:00 07:00 IntakeIntake Total 50 ml 850 ml 800 ml OutputOutput Total 920 ml BalanceBalance 50 ml -70 ml 800 ml Exam H EENT exam; supple neck, no JVD. No lymphadenopathy. Midline trachea. No thyromegaly. Patient does have multiple carious teeth. Chest exam; diminished but clear breath sounds. S1-S2 audible, no murmurs. Regular rhythm. Abdomen exam; soft, nontender. Bowel sounds audible. Extremity exam; trace edema with multiple ecchymosis in upper extremities bilaterally. 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 Results Result Diagram: 10/30/18 0640 10/30/18 0640 Results 24hrs Laboratory Tests Test 10/30/18 11:33 10/30/18 17:13 10/30/18 21:11 10/31/18 02:28 Bedside Glucose 128 182 202 140 Test 10/31/18 08:00 10/31/18 08:11 Blood Gas Blood arterial Specimen Source Arterial Blood 10/31/2018 7:50:3 Date Drawn 8 AM Arterial Blood pH 7.440 (Temp corrected) Arterial Blood 53.1 H pCO2 (Temp correct) Arterial Blood 55.1 L pO2 (Temp corrected) Arterial Blood 35.3 H HCO3 Arterial Blood 9.1 H Base Excess Arterial Blood 90.1 L Oxygen Saturation Jon Test ACCEPTAB Arterial Blood Left Radial Gas Puncture Site Arterial 0.7 Blood Carboxyhemo globin Arterial Blood 0.1 Methemoglobin Blood Gas A-a O2 96.4 H Differential Oxyhemoglobin 89.4 L Percent Blood Gas 37.0 Temperature Blood Gas NASAL CANNULA Modality FiO2 30.0 Blood Gas TM Notified Whom Blood Gas 10/31/2018 8:02:2 Notified Time 3 AM Bedside Glucose 163 Medications Medication Current Medications Acetaminophen/ Hydrocodone Bitart ([place] (5/325)) 1 tab TID PO Last administered on 10/31/18 09:17; Admin Dose 1 TAB; Start 10/28/18 at 22:00 Azithromycin (Zithromax) 250 mg DAILY PO Last administered on 10/31/18 08:31; Admin Dose 250 MG; Start 10/29/18 at 09:00 Budesonide (Pulmicort (Neb)) 0.5 mg BID RESP THERAPY NEB Last administered on 10/31/18 09:10; Admin Dose 0.5 MG; Start 10/28/18 at 21:21 Docusate Sodium (Colace) 100 mg BID PO Last administered on 10/31/18 08:32; Admin Dose 100 MG; Start 10/28/18 at 21:00 Montelukast Sodium (Singulair) 10 mg QHS PO Last administered on 10/30/18 21:13; Admin Dose 10 MG; Start 10/28/18 at 21:00 Nystatin (Nystatin Susp) 5 ml QID PO Last administered on 10/31/18 08:31; Admin Dose 5 ML; Start 10/28/18 at 21:29 Acetaminophen (Tylenol Tab) 650 mg Q4H PRN PO MILD PAIN(1-3)OR ELEVATED TEMP; Start 10/28/18 at 20:30 Acetaminophen/ Hydrocodone Bitart ([place] (5/325)) 1 tab Q6H PRN PO MODERATE PAIN LEVEL 4-6 Last administered on 10/31/18 05:43; Admin Dose 1 TAB; Start 10/28/18 at 20:30 Hydralazine HCl (Apresoline) 10 mg Q6H PRN IV SBP > 160; Start 10/28/18 at 20:30 Ondansetron HCl (Zofran Inj) 4 mg Q4H PRN IV NAUSEA AND/OR VOMITING; Start 10/28/18 at 20:30 Ketorolac Tromethamine (Toradol) 15 mg Q8 PRN IV PAIN; Start 10/29/18 at 11:00; Stop 11/01/18 at 10:59 Albuterol (Proventil 0.083% (Neb)) 2.5 mg Q4H RESP THERAPY HHN Last admin istered on 10/31/18 09:08; Admin Dose 2.5 MG; Start 10/29/18 at 13:00 Ipratropium [place] (Atrovent 0.02% (Neb)) 0.5 mg Q4H RESP THERAPY HHN Last administered on 10/31/18 09:08; Admin Dose 0.5 MG; Start 10/29/18 at 13:00 Diagnostic Test (Pha) (Accu-Chek) 1 ea 02 XX ; Start 10/30/18 at 02:00 Insulin Aspart (Novolog Insulin Pen) NOVOLOG *MILD* ALGORITHM WITH MEALS BEDTIME SC Last administered on 10/31/18 08:18; Admin Dose 1 UNIT; Start 10/29/18 at 12:30 Miscellaneous Information 1 ea NOTE XX ; Start 10/29/18 at 11:30 Glucose (Glutose) 15 gm Q15M PRN PO DECREASED GLUCOSE; Start 10/29/18 at 11:30 Glucose (Glutose) 22.5 gm Q15M PRN PO DECREASED GLUCOSE; Start 10/29/18 at 11:30 Dextrose (D50w Syringe) 25 ml Q15M PRN IV DECREASED GLUCOSE; Start 10/29/18 at 11:30 Dextrose (D50w Syringe) 50 ml Q15M PRN IV DECREASED GLUCOSE; Start 10/29/18 at 11:30 Glucagon (Glucagen) 1 mg Q15M PRN IM DECREASED GLUCOSE; Start 10/29/18 at 11:30 Glucose (Glutose) 15 gm Q15M PRN BUCCAL DECREASED GLUCOSE; Start 10/29/18 at 11:30 Guaifenesin/ Dextromethorphan (Robitussin Dm Liquid Cup) 10 ml Q4H PRN PO COUGH Last administered on 10/30/18 08:47; Admin Dose 10 ML; Start 10/29/18 at 12:30 Ceftriaxone Sodium 50 ml @ 100 mls/hr Q24H IVPB Last administered on 10/31/18 08:31; Admin Dose 100 MLS/HR; Start 10/30/18 at 08:30 Acetazolamide (Diamox) 500 mg ONCE IV Last administered on 10/31/18at 10:41; Admin Dose 500 MG; Start 10/31/18 at 09:30; Stop 10/31/18 at 12:00 Methylprednisolone Sodium Succinate (Solu-Medrol) 40 mg Q12 IV ; Start 10/31/18 at 21:00 MARCIA SILVA Oct 31, 2018 11:20
[2018-10-31] MEDS: GUAIFENESIN/DM 5ML CUP PO PRN ×2 (13:21→20:51)
[2018-10-31] MEDS: MONTELUKAST 10 MG TAB PO SCH (20:53)
[2018-11-01] VITALS (9 sets, daily range): BP systolic 134–169; BP diastolic 66–100; PULSE 70–98; RESP 17–20
[2018-11-01] MEDS: IPRATROPIUM (NEB) 0.5 MG/2.5 ML AMP HHN SCH ×6 (01:05→21:07)
[2018-11-01] MEDS: ALBUTEROL 0.083% (NEB) 2.5 MG/3 ML AMP HHN SCH ×6 (01:05→21:07)
[2018-11-01] MEDS: ACCU-CHEK XX SCH (02:00)
[2018-11-01] MEDS: HYDROCODONE/APAP (5/325) TAB PO PRN (04:54)
[2018-11-01] MEDS ORDERED: PENDING SANTYL ORDER FOR WOUND CARE XX PRN (07:00)
[2018-11-01] MEDS: INSULIN ASPART [NOVOLOG] 3 ML PEN SC SCH ×4 (08:18→21:00)
[2018-11-01] MEDS: DOCUSATE SODIUM 100 MG CAP PO SCH ×2 (08:38→20:27)
[2018-11-01] MEDS: HYDROCODONE/APAP (5/325) TAB PO SCH ×3 (08:38→20:28)
[2018-11-01] MEDS: NYSTATIN SUSP 5 ML CUP PO SCH ×4 (08:38→20:27)
[2018-11-01] MEDS: AZITHROMYCIN 250 MG TAB PO SCH (08:38)
[2018-11-01] MEDS: BUDESONIDE (NEB) 0.5MG/2ML AMP NEB SCH ×2 (09:11→21:08)
[2018-11-01] MEDS: METHYLPREDNISOLONE 40 MG INJ IV SCH (09:23)
[2018-11-01] MEDS: CEFTRIAXONE 1 GM/50 ML (PMX) 50 ML IVPB SCH (09:23)
[2018-11-01] MEDS: GUAIFENESIN/DM 5ML CUP PO PRN (09:25)
--- NOTE | 2018-11-01 09:29 | CONS ---
Assessment/Plan Assessment/Plan Assessment/Plan (Daily) Assessment and recommendations; 1. Patient admitted with asthma exacerbation as she ran out of her medications a week prior to presentation with significant clinical improvement on current treatment regimen. 2. Superimposed acute bronchitis with interval improvement as well. 3. Chronic type II respiratory failure with chronic hypercapnia. 4. Likely underlying sleep apnea. 5. Stable hypertension. Continue current supportive care. Patient would qualify for home BiPAP. Will also need to have a sleep study once discharged. Patient to be discharged home once BiPAP is arranged for home use with supplemental oxygen. Consultation Date/Type/Reason Admit Date/Time Oct 28, 2018 at 18:39 Initial Consult Date 10/29/18 Type of Consult Pulmonary Pulmonary consult requested for evaluation of asthma exacerbation with acute bronchitis. Patient is a pleasant 53-year-old lady who came into the hospital yesterday with a 5-day history of increasing chest congestion wheezing shortness of breath. According to patient she ran out of her inhalers about a week ago with increasing symptoms. Patient also was admitted at [facility] last week for 2 days and was discharged home in stable condition but again her condition became worse requiring her to come back to the hospital and was subsequently admitted. According to her she is feeling better since admission. Denies any chest pain, fever, chills, body aches or myalgias. Shortness of breath, coughing and wheezing have improved. According to the patient she is in usually good health and her asthma is well controlled as long as she takes her medications regularly. Past medical history; 1. Lifelong asthma. 2. History of hypertension. Medications; reviewed. Allergies; as outlined above. Social history; remote history of scant smoking. Family history; patient is single, lives with her daughter. Has 3 children. Occupational history; patient is on disability. Review of systems; denies any headache, seizures, sinus symptoms. Any postnasal drip. Any visual changes. Denies any sore throat, chest pain, angina, coughing, shortness of breath and wheezing have improved. Complains of very scant clear sputum production. Denies any fever or chills. Denies any abdominal pain, nausea vomiting. Any melena or hematochezia. Any orthopnea. Denies any edema. Any weight change. Any urinary symptoms. Does complain of loud snoring and excessive daytime sleepiness. General exam; middle-aged female, awake alert, currently in no distress. Date/Time of Note DATE: 11/01/18 TIME: 09:26 24 HR Interval Summary Free Text/Dictation Patient's condition is stable. Reports continued improvement in symptoms of shortness of breath, wheezing and cough. General exam; middle-aged female, awake and alert. Currently in no distress. Exam/Review of Systems Exam Vitals Vital Signs Date Temp Pulse Resp B/P (MAP) Pulse Ox O2 O2 Flow FiO2 Time Delivery Rate 11/01/18 86 20 93 Nasal 3.0 09:15 Cannula 11/01/18 97.9 144/79 08:00 (100) 10/30/18 40 01:05 Intake and Output 10/31/18 10/31/18 11/01/18 1515:00 23:00 07:00 IntakeIntake Total 700 ml 1600 ml BalanceBalance 700 ml 1600 ml Exam H EENT exam; supple neck, no JVD. No lymphadenopathy. Midline trachea. No thyromegaly. Patient has multiple carious teeth. Chest exam; diminished breath sounds bilateral. No added sounds. S1-S2 audible, no murmurs. Regular rhythm. Abdomen exam; soft, protuberant. Nontender. Bowel sounds audible. Extremity exam; no peripheral edema. Patient has a multiple ecchymosis in upper extremities. 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 Results Result Diagram: 11/01/18 0520 11/01/18 0520 Results 24hrs Laboratory Tests Test 10/31/18 11:17 10/31/18 12:03 10/31/18 17:05 10/31/18 20:50 Blood Gas Blood arterial Specimen Source Arterial Blood 10/31/2018 1:59:2 Date Drawn 6 PM Arterial Blood pH 7.367 (Temp corrected) Arterial Blood 55.7 H pCO2 (Temp correct) Arterial Blood 56.8 L pO2 (Temp corrected) Arterial Blood 31.3 H HCO3 Arterial Blood 4.2 H Base Excess Arterial Blood 90.7 L Oxygen Saturation Jon Test ACCEPTAB Arterial Blood Left Radial Gas Puncture Site Arterial 0.5 Blood Carboxyhemo globin Arterial Blood 0.2 Methemoglobin Blood Gas A-a O2 69.8 H Differential Oxyhemoglobin 90.1 L Percent Blood Gas 37.0 Temperature Blood Gas NASAL CANNULA Modality FiO2 27.0 Blood Gas TM Notified Whom Blood Gas 10/31/2018 2:24:1 Notified Time 4 PM Bedside Glucose 158 131 154 Test 11/01/18 05:20 11/01/18 05:21 11/01/18 08:14 White Blood Count 12.7 #H Red Blood Count 4.60 Hemoglobin 14.4 Hematocrit 44.9 Mean Corpuscular 97.6 Volume Mean Corpuscular 31.3 Hemoglobin Mean Corpuscular 32.1 Hemoglobin Concen t Red Cell 14.0 Distribution Width Platelet Count 311 # Mean Platelet 9.8 Volume Immature 5.500 H Granulocytes % Neutrophils % Segmented 85 H Neutrophils % (Manual) Band Neutrophils 3 % (Manual) Lymphocytes % Lymphocytes % 5 L (Manual) Reactive 1 H Lymphocytes % (Manual) Monocytes % Monocytes % 2 (Manual) Eosinophils % Basophils % Metamyelocytes % 2 H (manual) Myelocytes % 2 H (Manual) Nucleated Red 1 H Blood Cells % Immature 0.690 H Granulocytes # Neutrophils # Neutrophils # 10.8 H (Manual) Band Neutrophils 0.3 # Lymphocytes 0.6 L (Manual) Lymphocytes # Reactive 0.1 H Lymphocytes # Monocytes # Monocytes # 0.2 L (Manual) Eosinophils # Basophils # Metamyelocytes # 0.2 H Myelocytes # 0.2 H Nucleated Red Blood Cells # Platelet Estimate NORMAL Sodium Level 139 Potassium Level 4.3 Chloride Level 101 Carbon Dioxide 30 Level Anion Gap 8 Blood Urea 24 H Nitrogen Creatinine 0.50 Est Glomerular > 60 Filtrat Rate mL/min Glucose Level 179 Calcium Level 9.2 Phosphorus Level 3.3 Magnesium Level 1.9 Bedside Glucose 152 Medications Medication Current Medications Acetaminophen/ Hydrocodone Bitart ([place] (5/325)) 1 tab TID PO Last administered on 11/01/18 08:38; Admin Dose 1 TAB; Start 10/28/18 at 22:00 Azithromycin (Zithromax) 250 mg DAILY PO Last administered on 11/01/18 08:38; Admin Dose 250 MG; Start 10/29/18 at 09:00 Budesonide (Pulmicort (Neb)) 0.5 mg BID RESP THERAPY NEB Last administered on 11/01/18 09:11; Admin Dose 0.5 MG; Start 10/28/18 at 21:21 Docusate Sodium (Colace) 100 mg BID PO Last administered on 11/01/18 08:38; Admin Dose 100 MG; Start 10/28/18 at 21:00 Montelukast Sodium (Singulair) 10 mg QHS PO Last administered on 10/31/18 20:53; Admin Dose 10 MG; Start 10/28/18 at 21:00 Nystatin (Nystatin Susp) 5 ml QID PO Last administered on 11/01/18 08:38; Admin Dose 5 ML; Start 10/28/18 at 21:29 Acetaminophen (Tylenol Tab) 650 mg Q4H PRN PO MILD PAIN(1-3)OR ELEVATED TEMP; Start 10/28/18 at 20:30 Acetaminophen/ Hydrocodone Bitart ([place] (5/325)) 1 tab Q6H PRN PO MODERATE PAIN LEVEL 4-6 Last administered on 11/01/18 04:54; Admin Dose 1 TAB; Start 10/28/18 at 20:30 Hydralazine HCl (Apresoline) 10 mg Q6H PRN IV SBP > 160; Start 10/28/18 at 20:30 Ondansetron HCl (Zofran Inj) 4 mg Q4H PRN IV NAUSEA AND/OR VOMITING; Start 10/28/18 at 20:30 Ketorolac Tromethamine (Toradol) 15 mg Q8 PRN IV PAIN; Start 10/29/18 at 11:00; Stop 11/01/18 at 10:59 Albuterol (Proventil 0.083% (Neb)) 2.5 mg Q4H RESP THERAPY HHN Last administered on 11/01/18 09:11; Admin Dose 2.5 MG; Start 10/29/18 at 13:00 Ipratropium [place] (Atrovent 0.02% (Neb)) 0.5 mg Q4H RESP THERAPY HHN Last administered on 11/01/18 09:11; Admin Dose 0.5 MG; Start 10/29/18 at 13:00 Diagnostic Test (Pha) (Accu-Chek) 1 ea 02 XX ; Start 10/30/18 at 02:00 Insulin Aspart (Novolog Insulin Pen) NOVOLOG *MILD* ALGORITHM WITH MEALS BEDTIME SC Last administered on 11/01/18 08:18; Admin Dose 1 UNIT; Start 10/29/18 at 12:30 Miscellaneous Information 1 ea NOTE XX ; Start 10/29/18 at 11:30 Glucose (Glutose) 15 gm Q15M PRN PO DECREASED GLUCOSE; Start 10/29/18 at 11:30 Glucose (Glutose) 22.5 gm Q15M PRN PO DECREASED GLUCOSE; Start 10/29/18 at 11:30 Dextrose (D50w Syringe) 25 ml Q15M PRN IV DECREASED GLUCOSE; Start 10/29/18 at 11:30 Dextrose (D50w Syringe) 50 ml Q15M PRN IV DECREASED GLUCOSE; Start 10/29/18 at 11:30 Glucagon (Glucagen) 1 mg Q15M PRN IM DECREASED GLUCOSE; Start 10/29/18 at 11:30 Glucose (Glutose) 15 gm Q15M PRN BUCCAL DECREASED GLUCOSE; Start 10/29/18 at 11:30 Guaifenesin/ Dextromethorphan (Robitussin Dm Liquid Cup) 10 ml Q4H PRN PO COUGH Last administered on 11/01/18at 09:25; Admin Dose 10 ML; Start 10/29/18 at 12:30 Ceftriaxone Sodium 50 ml @ 100 mls/hr Q24H IVPB Last administered on 11/01/18at 09:23; Admin Dose 100 MLS/HR; Start 10/30/18 at 08:30 Methylprednisolone Sodium Succinate (Solu-Medrol) 40 mg Q12 IV Last administered on 11/01/18 09:23; Admin Dose 40 MG; Start 10/31/18 at 21:00 Miscellaneous Information (Pending [facility] Order For Wound Care) This patient bernstein... PRN PRN XX WOUND CARE; Start 11/01/18 at 07:00 MARCIA SILVA Nov 01, 2018 09:29
--- NOTE | 2018-11-01 11:54 | PN ---
Date/Time of Note Date/Time of Note DATE: 11/01/18 TIME: 11:51 Assessment/Plan VTE Prophylaxis Risk score (from [facility])>0 risk: 3 SCD applied (from [facility]): Yes Pharmacological prophylaxis: LMWH Pharm contraindication: patient refusal Lines/Catheters IV [facility]from [facility] [place] Urinary Cath still in place: No Assessment/Plan Hospital Course 1. Acute on chronic respiratory failure with hypercapnia and hypoxemia likely secondary to underlying chronic obstructive pulmonary disease. 2. Morbid obesity. 3. Hyperglycemia, likely secondary to steroids. 4. Polycythemia, likely to chronic hypoxemia. 5. History of metabolic alkalosis. 6. History of asthma. 7. Hypertension. 8. History of migraines. 9 Metabolic alkalosis 10. Hydradenitis suppurative, left groin abscess Assessment/Plan -surgical consult called -Decrease steroids gradually -Agree with IV Rocephin and azithromycin -wound cultures from the left groin pending -ECHO reviewed with Pt 55=60% and diastolic dysfunction -Continue with nebs [id number] -Insulin sliding scale -Pulmonary recs Result Diagram: 11/01/1851911/01/18 0520 Results 24hrs Laboratory Tests Test 10/31/18 12:03 10/31/18 17:05 10/31/18 20:50 11/01/18 05:20 Bedside Glucose 158 131 154 White Blood Count 12.7 #H Red Blood Count 4.60 Hemoglobin 14.4 Hematocrit 44.9 Mean Corpuscular 97.6 Volume Mean Corpuscular 31.3 Hemoglobin Mean Corpuscular 32.1 Hemoglobin Concent Red Cell 14.0 Distribution Width Platelet Count 311 # Mean Platelet Volume 9.8 Immature 5.500 H Granulocytes % Neutrophils % Segmented 85 H Neutrophils % (Manual) Band Neutrophils % 3 (Manual) Lymphocytes % Lymphocytes % 5 L (Manual) Reactive Lymphocytes 1 H % (Manual) Monocytes % Monocytes % (Manual) 2 Eosinophils % Basophils % Metamyelocytes % 2 H (manual) Myelocytes % 2 H (Manual) Nucleated Red Blood 1 H Cells % Immature 0.690 H Granulocytes # Neutrophils # Neutrophils # 10.8 H (Manual) Band Neutrophils # 0.3 Lymphocytes (Manual) 0.6 L Lymphocytes # Reactive Lymphocytes 0.1 H # Monocytes # Monocytes # (Manual) 0.2 L Eosinophils # Basophils # Metamyelocytes # 0.2 H Myelocytes # 0.2 H Nucleated Red Blood Cells # Platelet Estimate NORMAL Sodium Level 139 Potassium Level 4.3 Chloride Level 101 Carbon Dioxide Level 30 Anion Gap 8 Blood Urea Nitrogen 24 H Creatinine 0.50 Est Glomerular > 60 Filtrat Rate mL/min Glucose Level 179 Calcium Level 9.2 Test 11/01/18 05:21 11/01/18 08:14 11/01/18 11:22 Phosphorus Level 3.3 Magnesium Level 1.9 Bedside Glucose 152 105 Subjective 24 Hr Interval Summary Constitutional: improved Respiratory: cough (decreased), shortness of breath, other (cough medicine is not helpful) Exam/Review of Systems Exam Vitals Vital Signs Date Temp Pulse Resp B/P (MAP) Pulse Ox O2 O2 Flow FiO2 Time Delivery Rate 11/01/18 98.0 93 17 169/100 91 11:05 (123) 11/01/18 Nasal 3.0 09:15 Cannula 10/30/18 40 01:05 Intake and Output 10/31/18 10/31/18 11/01/18 1515:00 23:00 07:00 IntakeIntake Total 700 ml 1600 ml BalanceBalance 700 ml 1600 ml Constitutional: alert, oriented Head: normocephalic Neck: supple Respiratory: normal air movement Cardiovascular: regular rate and rhythm Gastrointestinal: soft Skin: ecchymosis, other (hydradenitis supparativa left groin) Results Results 24hrs Laboratory Tests Test 10/31/18 12:03 10/31/18 17:05 10/31/18 20:50 11/01/18 05:20 Bedside Glucose 158 131 154 White Blood Count 12.7 #H Red Blood Count 4.60 Hemoglobin 14.4 Hematocrit 44.9 Mean Corpuscular 97.6 Volume Mean Corpuscular 31.3 Hemoglobin Mean Corpuscular 32.1 Hemoglobin Concent Red Cell 14.0 Distribution Width Platelet Count 311 # Mean Platelet Volume 9.8 Immature 5.500 H Granulocytes % Neutrophils % Segmented 85 H Neutrophils % (Manual) Band Neutrophils % 3 (Manual) Lymphocytes % Lymphocytes % 5 L (Manual) Reactive Lymphocytes 1 H % (Manual) Monocytes % Monocytes % (Manual) 2 Eosinophils % Basophils % Metamyelocytes % 2 H (manual) Myelocytes % 2 H (Manual) Nucleated Red Blood 1 H Cells % Immature 0.690 H Granulocytes # Neutrophils # Neutrophils # 10.8 H (Manual) Band Neutrophils # 0.3 Lymphocytes (Manual) 0.6 L Lymphocytes # Reactive Lymphocytes 0.1 H # Monocytes # Monocytes # (Manual) 0.2 L Eosinophils # Basophils # Metamyelocytes # 0.2 H Myelocytes # 0.2 H Nucleated Red Blood Cells # Platelet Estimate NORMAL Sodium Level 139 Potassium Level 4.3 Chloride Level 101 Carbon Dioxide Level 30 Anion Gap 8 Blood Urea Nitrogen 24 H Creatinine 0.50 Est Glomerular > 60 Filtrat Rate mL/min Glucose Level 179 Calcium Level 9.2 Test 11/01/18 05:21 11/01/18 08:14 11/01/18 11:22 Phosphorus Level 3.3 Magnesium Level 1.9 Bedside Glucose 152 105 Medications Medication Current Medications Acetaminophen/ Hydrocodone Bitart ([place] (5/325)) 1 tab TID PO Last administered on 11/01/18 08:38; Admin Dose 1 TAB; Start 10/28/18 at 22:00 Azithromycin (Zithromax) 250 mg DAILY PO Last administered on 11/01/18 08:38; Admin Dose 250 MG; Start 10/29/18 at 09:00 Budesonide (Pulmicort (Neb)) 0.5 mg BID RESP THERAPY NEB Last administered on 11/01/18 09:11; Admin Dose 0.5 MG; Start 10/28/18 at 21:21 Docusate Sodium (Colace) 100 mg BID PO Last administered on 11/01/18 08:38; Admin Dose 100 MG; Start 10/28/18 at 21:00 Montelukast Sodium (Singulair) 10 mg QHS PO Last administered on 10/31/18 20:53; Admin Dose 10 MG; Start 10/28/18 at 21:00 Nystatin (Nystatin Susp) 5 ml QID PO Last administered on 11/01/18 08:38; Admin Dose 5 ML; Start 10/28/18 at 21:29 Acetaminophen (Tylenol Tab) 650 mg Q4H PRN PO MILD PAIN(1-3)OR ELEVATED TEMP; Start 10/28/18 at 20:30 Acetaminophen/ Hydrocodone Bitart ([place] (5/325)) 1 tab Q6H PRN PO MODERATE PAIN LEVEL 4-6 Last administered on 11/01/18 04:54; Admin Dose 1 TAB; Start 10/28/18 at 20:30 Hydralazine HCl (Apresoline) 10 mg Q6H PRN IV SBP > 160; Start 10/28/18 at 20:30 Ondansetron HCl (Zofran Inj) 4 mg Q4H PRN IV NAUSEA AND/OR VOMITING; Start 10/28/18 at 20:30 Albuterol (Proventil 0.083% (Neb)) 2.5 mg Q4H RESP THERAPY HHN Last administered on 11/01/18 09:11; Admin Dose 2.5 MG; Start 10/29/18 at 13:00 Ipratropium [place] (Atrovent 0.02% (Neb)) 0.5 mg Q4H RESP THERAPY HHN Last administered on 11/01/18 09:11; Admin Dose 0.5 MG; Start 10/29/18 at 13:00 Diagnostic Test (Pha) (Accu-Chek) 1 ea 02 XX ; Start 10/30/18 at 02:00 Insulin Aspart (Novolog Insulin Pen) NOVOLOG *MILD* ALGORITHM WITH MEALS BEDTIME SC Last administered on 11/01/18 08:18; Admin Dose 1 UNIT; Start 10/29/18 at 12:30 Miscellaneous Information 1 ea NOTE XX ; Start 10/29/18 at 11:30 Glucose (Glutose) 15 gm Q15M PRN PO DECREASED GLUCOSE; Start 10/29/18 at 11:30 Glucose (Glutose) 22.5 gm Q15M PRN PO DECREASED GLUCOSE; Start 10/29/18 at 11:30 Dextrose (D50w Syringe) 25 ml Q15M PRN IV DECREASED GLUCOSE; Start 10/29/18 at 11:30 Dextrose (D50w Syringe) 50 ml Q15M PRN IV DECREASED GLUCOSE; Start 10/29/18 at 11:30 Glucagon (Glucagen) 1 mg Q15M PRN IM DECREASED GLUCOSE; Start 10/29/18 at 11:30 Glucose (Glutose) 15 gm Q15M PRN BUCCAL DECREASED GLUCOSE; Start 10/29/18 at 11:30 Guaifenesin/ Dextromethorphan (Robitussin Dm Liquid Cup) 10 ml Q4H PRN PO COUGH Last administered on 11/01/18 09:25; Admin Dose 10 ML; Start 10/29/18 at 12:30 Ceftriaxone Sodium 50 ml @ 100 mls/hr Q24H IVPB Last administered on 11/01/18at 09:23; Admin Dose 100 MLS/HR; Start 10/30/18 at 08:30 Miscellaneous Information (Pending [facility] Order For Wound Care) This patient bernstein... PRN PRN XX WOUND CARE; Start 11/01/18 at 07:00 Prednisone (Prednisone) 30 mg DAILY PO ; Start 11/02/18 at 09:00 SINGH ALY Nov 01, 2018 11:54
--- NOTE | 2018-11-01 11:56 | PDOCDIS ---
Discharge Instructions CONDITION [id number] Patient Condition: [id number] Stable HOME CARE INSTRUCTIONS: [id number] Diet Instructions: [id number] Reduced Sodium ACTIVITY: [id number] Activity Restrictions: [id number] Slowly Increase Activity Rest between Activity Avoid heavy lifting FOLLOW UP/APPOINTMENTS Follow-up Plan pcp 1 week pulmonology consult via insurance preference SINGH ALY Nov 01, 2018 11:56
[2018-11-01] MEDS ORDERED: LEVO500T48 PO (12:10)
[2018-11-01] MEDS ORDERED: PRED10TA PO (12:10)
[2018-11-01] MEDS ORDERED: MUPI22OI2 TOP (12:10)
[2018-11-01] MEDS ORDERED: LOSA1TAB22 PO (12:11)
[2018-11-01] MEDS: LOSARTAN 50 MG TAB PO SCH (13:50)
--- NOTE | 2018-11-01 15:04 | CONS ---
Assessment/Plan Assessment/Plan Assessment/Plan (Daily) 1. Labial abscess: Likely secondary to hidradenitis; spontaneously draining -Heating pad to promote abscess drainage -Follow cultures -Antibiotics per sensitivity -Local care 2.Respiratory failure with hypercapnia and hypoxemia likely secondary to COPD -Per pulmonary -steroid taper -Supportive 3. Morbid obesity BMI: -diet and exercise optimization -encourage weight loss 4. Asthma history: -Pulmonary optimization 5. Hypertension: -Highly encourage weight loss -Medical management 6. Leukocytosis: ? 2/2 #1 versus current steroid use -As above -Trend Thank you. Patient seen and examined in collaboration with Dr. Carlos Meza. Consultation Date/Type/Reason Admit Date/Time Oct 28, 2018 at 18:39 Date of Consultation: Nov 01, 2018 Type of Consult surgical Reason for Consultation Abscess Requesting Provider: SINGH ALY Date/Time of Note DATE: 11/01/18 TIME: 14:44 Hx of Present Illness Rosemary Up is a 53-year-old woman with past medical history of COPD, sleep apnea, asthma, morbid obesity, hypertension, migraine, and left foot bunion surgery who presented to the ED with reports of respiratory distress. Associated symptoms include chest tightness and wheezing as well as labored breathing. She necessitated use of BiPAP and supplemental oxygen. She is transferred to [facility] due to insurance reasons and is currently being managed for acute on chronic respiratory failure with hypercapnia and hypoxemia secondary to COPD. Recent chest x-ray showed possible edema versus pneumonia. She was placed on antibiotic therapy as well as steroids. She has since improved and is currently on supplemental oxygen at low flow rate and is on a steroid taper. No current reports of fevers, chills, congested cough, shortness of breath, chest pain, palpitations, nausea, vomiting, diarrhea, seizure, rash. While in-house, she was noted to have a left labial abscess that was spontaneously draining. General surgery was asked to evaluate. 12 point review of systems was performed and is negative except for as stated in HPI. Past Medical History As above Home Meds Active Scripts Losartan-Hydrochlorothiazide (Losartan-HCTZ) 50-12.5 Mg Tab, 1 TAB PO DAILY for 30 Days, TAB Prov:SINGH ALY 11/01/18 Mupirocin* (Bactroban*) 2% -22 Gram Oint...g., 14 APPLIC TOP TID, #1 TUB SITE OF APPLICATION: Prov:RUBENMATTHEWSINGH 11/01/18 Prednisone* (Prednisone*) 10 Mg Tab, 30 MG PO DAILY for 5 Days, TAB Prov:BELEMANNIELisaSINGH 11/01/18 Levofloxacin* (Levaquin*) 500 Mg Tablet, 500 MG PO DAILY for 7 Days, TAB Prov:SINGH ALY 11/01/18 Reported Medications Prednisone* (Prednisone*) 20 Mg Tab, 40 MG PO DAILY, TAB 10/28/18 Nystatin (Nystatin) 500,000 Unit Tablet, 375984 UNIT PO QID, TAB 10/28/18 Montelukast Sodium* (Montelukast Sodium*) 10 Mg Tablet, 10 MG PO QHS, #30 TAB 10/28/18 Enoxaparin Sodium (Enoxaparin Sodium) 40 Mg/0.4 Ml Syringe, 40 MG SQ DAILY, SYR 10/28/18 Docusate Sodium* (Colace*) 100 Mg Capsule, 100 MG PO BID, #60 CAP 10/28/18 Azithromycin* (Azithromycin*) 250 Mg Tablet, 250 MG PO DAILY, #4 TAB 10/28/18 Albuterol Sulfate* (Albuterol Sulfate* Neb) 0.083%-3 Ml Neb, 2.5 MG NEB Q6, #30 VIAL 10/28/18 Budesonide* (Budesonide*) 0.5 Mg/2 Ml Ampul.neb, 0.5 MG INHALATION BID, AMP 10/28/18 Acetaminophen with Codeine (Acetaminophen-Cod #3 Tablet) 1 Each Tablet, 1 TAB PO TID, #7 TAB 10/28/18 Medications Current Medications Acetaminophen/ Hydrocodone Bitart ([place] (5/325)) 1 tab TID PO Last administered on 11/01/18at 13:50; Admin Dose 1 TAB; Start 10/28/18 at 22:00 Azithromycin (Zithromax) 250 mg DAILY PO Last administered on 11/01/18at 08:38; Admin Dose 250 MG; Start 10/29/18 at 09:00 Budesonide (Pulmicort (Neb)) 0.5 mg BID RESP THERAPY NEB Last administered on 11/01/18at 09:11; Admin Dose 0.5 MG; Start 10/28/18 at 21:21 Docusate Sodium (Colace) 100 mg BID PO Last administered on 11/01/18 08:38; Admin Dose 100 MG; Start 10/28/18 at 21:00 Montelukast Sodium (Singulair) 10 mg QHS PO Last administered on 10/31/18 20:5 3; Admin Dose 10 MG; Start 10/28/18 at 21:00 Nystatin (Nystatin Susp) 5 ml QID PO Last administered on 11/01/18 13:49; Admin Dose 5 ML; Start 10/28/18 at 21:29 Acetaminophen (Tylenol Tab) 650 mg Q4H PRN PO MILD PAIN(1-3)OR ELEVATED TEMP; Start 10/28/18 at 20:30 Acetaminophen/ Hydrocodone Bitart ([place] (5/325)) 1 tab Q6H PRN PO MODERATE PAIN LEVEL 4-6 Last administered on 11/01/18 04:54; Admin Dose 1 TAB; Start 10/28/18 at 20:30 Hydralazine HCl (Apresoline) 10 mg Q6H PRN IV SBP > 160; Start 10/28/18 at 20:30 Ondansetron HCl (Zofran Inj) 4 mg Q4H PRN IV NAUSEA AND/OR VOMITING; Start 10/28/18 at 20:30 Albuterol (Proventil 0.083% (Neb)) 2.5 mg Q4H RESP THERAPY HHN Last administered on 11/01/18 13:47; Admin Dose 2.5 MG; Start 10/29/18 at 13:00 Ipratropium [place] (Atrovent 0.02% (Neb)) 0.5 mg Q4H RESP THERAPY HHN Last administered on 11/01/18 13:47; Admin Dose 0.5 MG; Start 10/29/18 at 13:00 Diagnostic Test (Pha) (Accu-Chek) 1 ea 02 XX ; Start 10/30/18 at 02:00 Insulin Aspart (Novolog Insulin Pen) NOVOLOG *MILD* ALGORITHM WITH MEALS BEDTIME SC Last administered on 11/01/18 08:18; Admin Dose 1 UNIT; Start 10/29/18 at 12:30 Miscellaneous Information 1 ea NOTE XX ; Start 10/29/18 at 11:30 Glucose (Glutose) 15 gm Q15M PRN PO DECREASED GLUCOSE; Start 10/29/18 at 11:30 Glucose (Glutose) 22.5 gm Q15M PRN PO DECREASED GLUCOSE; Start 10/29/18 at 11:30 Dextrose (D50w Syringe) 25 ml Q15M PRN IV DECREASED GLUCOSE; Start 10/29/18 at 11:30 Dextrose (D50w Syringe) 50 ml Q15M PRN IV DECREASED GLUCOSE; Start 10/29/18 at 11:30 Glucagon (Glucagen) 1 mg Q15M PRN IM DECREASED GLUCOSE; Start 10/29/18 at 11:30 Glucose (Glutose) 15 gm Q15M PRN BUCCAL DECREASED GLUCOSE; Start 10/29/18 at 11:30 Ceftriaxone Sodium 50 ml @ 100 mls/hr Q24H IVPB Last administered on 11/01/18at 09:23; Admin Dose 100 MLS/HR; Start 10/30/18 at 08:30 Miscellaneous Information (Pending [facility] Order For Wound Care) This patient bernstein... PRN PRN XX WOUND CARE; Start 11/01/18 at 07:00 Prednisone (Prednisone) 30 mg DAILY PO ; Start 11/02/18 at 09:00 Losartan Potassium (Cozaar) 50 mg DAILY PO Last administered on 11/01/18at 13:50; Admin Dose 50 MG; Start 11/01/18 at 12:30 Promethazine HCl/ Codeine (Phenergan/ Codeine) 5 ml Q4H PRN PO COUGH; Start 11/01/18 at 12:30 Allergies: Coded Allergies: levofloxacin (Verified Allergy, Severe, 10/30/18) lorazepam (Verified Allergy, Unknown, 10/28/18) Past Surgical History As above Family History Significant Family History: no pertinent family hx Social History Smoking Status: Never smoker Exam/Review of Systems Exam Vitals Vital Signs Date Temp Pulse Resp B/P (MAP) Pulse Ox O2 O2 Flow FiO2 Time Delivery Rate 11/01/18 88 20 92 Nasal 3.0 13:53 Cannula 11/01/18 98.0 169/100 11:05 (123) 10/30/18 40 01:05 Intake and Output 10/31/18 10/31/18 11/01/18 1515:00 23:00 07:00 IntakeIntake Total 700 ml 1600 ml BalanceBalance 700 ml 1600 ml Constitutional: alert, oriented, well developed Psych: no complaints, anxiety (Minimal) Head: normocephalic, atraumatic Eyes: nl conjunctiva, EOMI, nl lids, nl sclera ENMT: nl external ears & nose, nl lips & teeth, mucosa pink and moist Neck: supple, non-tender Respiratory: normal air movement; No congested cough Cardiovascular: regular rate and rhythm, nl pulses Gastrointestinal: soft, non-tender Genitourinary - Female: other (Left labia majora: Multiple openings with purulent drainage spontaneously draining with area of induration) Musculoskeletal: nl gait and stance; No joint tenderness Extremities: normal pulses Neurological: nl mental status, nl speech, nl strength Skin: No rash or lesions Results Result Diagram: 11/01/1851911/01/18519 Results 24hrs Laboratory Tests Test 10/31/18 17:05 10/31/18 20:50 11/01/18 05:20 11/01/18 05:21 Bedside Glucose 131 154 White Blood Count 12.7 #H Red Blood Count 4.60 Hemoglobin 14.4 Hematocrit 44.9 Mean Corpuscular 97.6 Volume Mean Corpuscular 31.3 Hemoglobin Mean Corpuscular 32.1 Hemoglobin Concent Red Cell 14.0 Distribution Width Platelet Count 311 # Mean Platelet Volume 9.8 Immature 5.500 H Granulocytes % Neutrophils % Segmented 85 H Neutrophils % (Manual) Band Neutrophils % 3 (Manual) Lymphocytes % Lymphocytes % 5 L (Manual) Reactive Lymphocytes 1 H % (Manual) Monocytes % Monocytes % (Manual) 2 Eosinophils % Basophils % Metamyelocytes % 2 H (manual) Myelocytes % 2 H (Manual) Nucleated Red Blood 1 H Cells % Immature 0.690 H Granulocytes # Neutrophils # Neutrophils # 10.8 H (Manual) Band Neutrophils # 0.3 Lymphocytes (Manual) 0.6 L Lymphocytes # Reactive Lymphocytes 0.1 H # Monocytes # Monocytes # (Manual) 0.2 L Eosinophils # Basophils # Metamyelocytes # 0.2 H Myelocytes # 0.2 H Nucleated Red Blood Cells # Platelet Estimate NORMAL Sodium Level 139 Potassium Level 4.3 Chloride Level 101 Carbon Dioxide Level 30 Anion Gap 8 Blood Urea Nitrogen 24 H Creatinine 0.50 Est Glomerular > 60 Filtrat Rate mL/min Glucose Level 179 Calcium Level 9.2 Phosphorus Level 3.3 Magnesium Level 1.9 Test 11/01/18 08:14 11/01/18 11:22 Bedside Glucose 152 105 Medications Medication Current Medications Acetaminophen/ Hydrocodone Bitart ([place] (5/325)) 1 tab TID PO Last administered on 11/01/18 13:50; Admin Dose 1 TAB; Start 10/28/18 at 22:00 Azithromycin (Zithromax) 250 mg DAILY PO Last administered on 11/01/18 08:38; Admin Dose 250 MG; Start 10/29/18 at 09:00 Budesonide (Pulmicort (Neb)) 0.5 mg BID RESP THERAPY NEB Last administered on 11/01/18 09:11; Admin Dose 0.5 MG; Start 10/28/18 at 21:21 Docusate Sodium (Colace) 100 mg BID PO Last administered on 11/01/18 08:38; Admin Dose 100 MG; Start 10/28/18 at 21:00 Montelukast Sodium (Singulair) 10 mg QHS PO Last administered on 10/31/18 20 :53; Admin Dose 10 MG; Start 10/28/18 at 21:00 Nystatin (Nystatin Susp) 5 ml QID PO Last administered on 11/01/18 13:49; Admin Dose 5 ML; Start 10/28/18 at 21:29 Acetaminophen (Tylenol Tab) 650 mg Q4H PRN PO MILD PAIN(1-3)OR ELEVATED TEMP; Start 10/28/18 at 20:30 Acetaminophen/ Hydrocodone Bitart ([place] (5/325)) 1 tab Q6H PRN PO MODERATE PAIN LEVEL 4-6 Last administered on 11/01/18 04:54; Admin Dose 1 TAB; Start 10/28/18 at 20:30 Hydralazine HCl (Apresoline) 10 mg Q6H PRN IV SBP > 160; Start 10/28/18 at 20:30 Ondansetron HCl (Zofran Inj) 4 mg Q4H PRN IV NAUSEA AND/OR VOMITING; Start at 20:30 Albuterol (Proventil 0.083% (Neb)) 2.5 mg Q4H RESP THERAPY HHN Last administered on 11/01/18 13:47; Admin Dose 2.5 MG; Start 10/29/18 at 13:00 Ipratropium [place] (Atrovent 0.02% (Neb)) 0.5 mg Q4H RESP THERAPY HHN Last administered on 11/01/18at 13:47; Admin Dose 0.5 MG; Start 10/29/18 at 13:00 Diagnostic Test (Pha) (Accu-Chek) 1 ea 02 XX ; Start 10/30/18 at 02:00 Insulin Aspart (Novolog Insulin Pen) NOVOLOG *MILD* ALGORITHM WITH MEALS BEDTIME SC Last administered on 11/01/18 08:18; Admin Dose 1 UNIT; Start 10/29/18 at 12:30 Miscellaneous Information 1 ea NOTE XX ; Start 10/29/18 at 11:30 Glucose (Glutose) 15 gm Q15M PRN PO DECREASED GLUCOSE; Start 10/29/18 at 11:30 Glucose (Glutose) 22.5 gm Q15M PRN PO DECREASED GLUCOSE; Start 10/29/18 at 11:30 Dextrose (D50w Syringe) 25 ml Q15M PRN IV DECREASED GLUCOSE; Start 10/29/18 at 11:30 Dextrose (D50w Syringe) 50 ml Q15M PRN IV DECREASED GLUCOSE; Start 10/29/18 at 11:30 Glucagon (Glucagen) 1 mg Q15M PRN IM DECREASED GLUCOSE; Start 10/29/18 at 11:30 Glucose (Glutose) 15 gm Q15M PRN BUCCAL DECREASED GLUCOSE; Start 10/29/18 at 11:30 Ceftriaxone Sodium 50 ml @ 100 mls/hr Q24H IVPB Last administered on 11/01/18at 09:23; Admin Dose 100 MLS/HR; Start 10/30/18 at 08:30 Miscellaneous Information (Pending [facility] Order For Wound Care) This patient bernstein... PRN PRN XX WOUND CARE; Start 11/01/18 at 07:00 Prednisone (Prednisone) 30 mg DAILY PO ; Start 11/02/18 at 09:00 Losartan Potassium (Cozaar) 50 mg DAILY PO Last administered on 11/01/18at 13:50; Admin Dose 50 MG; Start 11/01/18 at 12:30 Promethazine HCl/ Codeine (Phenergan/ Codeine) 5 ml Q4H PRN PO COUGH; Start 11/01/18 at 12:30 CANDIDO BARTHOLOMEW NP Nov 01, 2018 14:56
[2018-11-01] MEDS: MONTELUKAST 10 MG TAB PO SCH (20:27)
[2018-11-02 00:27] VITALS: PULSE 80
[2018-11-02] MEDS: IPRATROPIUM (NEB) 0.5 MG/2.5 ML AMP HHN SCH ×5 (00:27→17:10)
[2018-11-02] MEDS: ALBUTEROL 0.083% (NEB) 2.5 MG/3 ML AMP HHN SCH ×5 (00:27→17:10)
[2018-11-02] MEDS: HYDROCODONE/APAP (5/325) TAB PO PRN ×2 (00:30→06:31)
[2018-11-02 00:45] VITALS: BP 135/76; PULSE 85; RESP 18
[2018-11-02] MEDS: PROMETHAZINE/CODEINE 5ML CUP PO PRN ×2 (01:41→05:00)
[2018-11-02] MEDS: ACCU-CHEK XX SCH (02:00)
[2018-11-02] MEDS: INSULIN ASPART [NOVOLOG] 3 ML PEN SC SCH ×3 (08:00→17:08)
[2018-11-02 08:34] VITALS: BP 114/62; PULSE 102
[2018-11-02] MEDS ORDERED: predniSONE 10 MG TAB PO SCH (09:00)
[2018-11-02] MEDS: DOCUSATE SODIUM 100 MG CAP PO SCH (09:03)
[2018-11-02] MEDS: CEFTRIAXONE 1 GM/50 ML (PMX) 50 ML IVPB SCH (09:03)
[2018-11-02] MEDS: HYDROCODONE/APAP (5/325) TAB PO SCH ×2 (09:04→12:30)
[2018-11-02] MEDS: LOSARTAN 50 MG TAB PO SCH (09:04)
[2018-11-02] MEDS: NYSTATIN SUSP 5 ML CUP PO SCH ×3 (09:04→17:35)
[2018-11-02] MEDS: AZITHROMYCIN 250 MG TAB PO SCH (09:05)
[2018-11-02] MEDS: BUDESONIDE (NEB) 0.5MG/2ML AMP NEB SCH (09:15)
--- NOTE | 2018-11-02 12:29 | PN ---
Date/Time of Note Date/Time of Note DATE: 11/02/18 TIME: 12:29 Assessment/Plan VTE Prophylaxis Risk score (from Ns)>0 risk: 2 SCD applied (from Ns): Yes SCD contraindicated: low risk/ambulating Pharmacological prophylaxis: NA/contraindicated Pharm contraindication: low risk/ambulating Lines/Catheters IV [facility] [place] Urinary Cath still in place: No Assessment/Plan Hospital Course 1. Acute on chronic respiratory failure with hypercapnia and hypoxemia likely secondary to underlying chronic obstructive pulmonary disease. 2. Morbid obesity. 3. Hyperglycemia, likely secondary to steroids. 4. Polycythemia, likely to chronic hypoxemia. 5. History of metabolic alkalosis. 6. History of asthma. 7. Hypertension. 8. History of migraines. 9 Metabolic alkalosis 10. Hydradenitis suppurative, left groin abscess Assessment/Plan dc Result Diagram: 11/01/1851911/01/18 05 Results 24hrs Laboratory Tests Test 11/01/18 17:52 11/01/18 21:00 11/02/18 08:00 11/02/18 12:06 Bedside Glucose 179 142 86 225 H Subjective 24 Hr Interval Summary Constitutional: no complaints Respiratory: cough Exam/Review of Systems Exam Vitals Vital Signs Date Temp Pulse Resp B/P (MAP) Pulse Ox O2 O2 Flow FiO2 Time Delivery Rate 11/02/18 99 20 92 Nasal 3.0 09:08 Cannula 11/02/18 99.1 114/62 08:34 (79) 11/02/18 30 00:43 Intake and Output 11/01/18 11/01/18 11/02/18 1515:00 23:00 07:00 IntakeIntake Total 1400 ml 500 ml BalanceBalance 1400 ml 500 ml Constitutional: alert, oriented Cardiovascular: regular rate and rhythm Gastrointestinal: soft Skin: ecchymosis Results Results 24hrs Laboratory Tests Test 11/01/18 17:52 11/01/18 21:00 11/02/18 08:00 11/02/18 12:06 Bedside Glucose 179 142 86 225 H Medications Medication Current Medications Acetaminophen/ Hydrocodone Bitart ([place] (5/325)) 1 tab TID PO Last administered on 11/02/18at 09:04; Admin Dose 1 TAB; Start 10/28/18 at 22:00 Azithromycin (Zithromax) 250 mg DAILY PO Last administered on 11/02/18 09:05; Admin Dose 250 MG; Start 10/29/18 at 09:00 Budesonide (Pulmicort (Neb)) 0.5 mg BID RESP THERAPY NEB Last administered on 11/02/18 09:15; Admin Dose 0.5 MG; Start 10/28/18 at 21:21 Docusate Sodium (Colace) 100 mg BID PO Last administered on 11/02/18 09:03; Admin Dose 100 MG; Start 10/28/18 at 21:00 Montelukast Sodium (Singulair) 10 mg QHS PO Last administered on 11/01/18 20:27; Admin Dose 10 MG; Start 10/28/18 at 21:00 Nystatin (Nystatin Susp) 5 ml QID PO Last administered on 11/02/18 09:04; Admin Dose 5 ML; Start 10/28/18 at 21:29 Acetaminophen (Tylenol Tab) 650 mg Q4H PRN PO MILD PAIN(1-3)OR ELEVATED TEMP; Start 10/28/18 at 20:30 Acetaminophen/ Hydrocodone Bitart ([place] (5/325)) 1 tab Q6H PRN PO MODERATE PAIN LEVEL 4-6 Last administered on 11/02/18 06:31; Admin Dose 1 TAB; Start 10/28/18 at 20:30 Hydralazine HCl (Apresoline) 10 mg Q6H PRN IV SBP > 160; Start 10/28/18 at 20:30 Ondansetron HCl (Zofran Inj) 4 mg Q4H PRN IV NAUSEA AND/OR VOMITING; Start 10/28/18 at 20:30 Albuterol (Proventil 0.083% (Neb)) 2.5 mg Q4H RESP THERAPY HHN Last administered on 11/02/18 09:07; Admin Dose 2.5 MG; Start 10/29/18 at 13:00 Ipratropium [place] (Atrovent 0.02% (Neb)) 0.5 mg Q4H RESP THERAPY HHN Last administered on 11/02/18 09:07; Admin Dose 0.5 MG; Start 10/29/18 at 13:00 Diagnostic Test (Pha) (Accu-Chek) 1 ea 02 XX ; Start 10/30/18 at 02:00 Insulin Aspart (Novolog Insulin Pen) NOVOLOG *MILD* ALGORITHM WITH MEALS BEDTIME SC Last administered on 11/02/18 12:16; Admin Dose 3 UNIT; Start 10/29/18 at 12:30 Miscellaneous Information 1 ea NOTE XX ; Start 10/29/18 at 11:30 Glucose (Glutose) 15 gm Q15M PRN PO DECREASED GLUCOSE; Start 10/29/18 at 11:30 Glucose (Glutose) 22.5 gm Q15M PRN PO DECREASED GLUCOSE; Start 10/29/18 at 11:30 Dextrose (D50w Syringe) 25 ml Q15M PRN IV DECREASED GLUCOSE; Start 10/29/18 at 11:30 Dextrose (D50w Syringe) 50 ml Q15M PRN IV DECREASED GLUCOSE; Start 10/29/18 at 11:30 Glucagon (Glucagen) 1 mg Q15M PRN IM DECREASED GLUCOSE; Start 10/29/18 at 11:30 Glucose (Glutose) 15 gm Q15M PRN BUCCAL DECREASED GLUCOSE; Start 10/29/18 at 11:30 Ceftriaxone Sodium 50 ml @ 100 mls/hr Q24H IVPB Last administered on 11/02/18 09:03; Admin Dose 100 MLS/HR; Start 10/30/18 at 08:30 Miscellaneous Information (Pending [facility] Order For Wound Care) This patient bernstein... PRN PRN XX WOUND CARE; Start 11/01/18 at 07:00 Prednisone (Prednisone) 30 mg DAILY PO Last administered on 11/02/18 09:05; Admin Dose 30 MG; Start 11/02/18 at 09:00 Losartan Potassium (Cozaar) 50 mg DAILY PO Last administered on 11/02/18 09:04; Admin Dose 50 MG; Start 11/01/18 at 12:30 Promethazine HCl/ Codeine (Phenergan/ Codeine) 5 ml Q4H PRN PO COUGH Last admin istered on 11/02/18 05:00; Admin Dose 5 ML; Start 11/01/18 at 12:30 SINGH ALY Nov 02, 2018 12:29
[2018-11-02 14:00] VITALS: BP 123/72; PULSE 113; RESP 19
[2018-11-02] MEDS ORDERED: Ipratropium 0.02% (Neb) HHN (14:33)
[2018-11-02] MEDS ORDERED: ALBU2.5V3 HHN (14:33)
--- NOTE | 2018-11-02 15:45 | CONS ---
Consult Date/Type/Reason Admit Date/Time Oct 28, 2018 at 18:39 Initial Consult Date 11/01/18 Type of Consultation: Pulm Requesting Provider: SINGH ALY Date/Time of Note DATE: 11/02/18 TIME: 15:43 Subjective Doing better. No events. Objective Vitals Vital Signs Date Temp Pulse Resp B/P (MAP) Pulse Ox O2 O2 Flow FiO2 Time Delivery Rate 11/02/18 3.0 14:03 11/02/18 105 22 93 Nasal 13:38 Cannula 11/02/18 99.1 114/62 08:34 (79) 11/02/18 30 00:43 Intake and Output 11/01/18 11/01/18 11/02/18 1515:00 23:00 07:00 IntakeIntake Total 1400 ml 500 ml BalanceBalance 1400 ml 500 ml Exam HEENT: Neck supple; no JVD; no LAD CVS: RRR, S1 and S2 CHEST: Clear ABD: Obese, NT, + BS EXT: No c/c; + edema Results/Medications Result Diagram: 11/01/1851911/01/18519 Results 24 hrs Laboratory Tests Test 11/01/18 17:52 11/01/18 21:00 11/02/18 08:00 11/02/18 12:06 Bedside Glucose 179 142 86 225 H Home Meds Active Scripts [Ipratropium 0.02% (Neb)] 0.5 MG/2.5 ML NEBU No Conflict Check, 0.5 MG HHN Q6 for 30 Days Prov:SINGH ALY 11/02/18 Albuterol Sulfate* (Albuterol Sulfate* Neb) 0.083%-3 Ml Neb, 2.5 MG HHN Q6 for 30 Days Prov:SINGH ALY 11/02/18 Losartan-Hydrochlorothiazide (Losartan-HCTZ) 50-12.5 Mg Tab, 1 TAB PO DAILY for 30 Days, TAB Prov:SINGH ALY 11/01/18 Mupirocin* (Bactroban*) 2% -22 Gram Oint...g., 14 APPLIC TOP TID, #1 TUB SITE OF APPLICATION: Prov:SINGH ALY 11/01/18 Prednisone* (Prednisone*) 10 Mg Tab, 30 MG PO DAILY for 5 Days, TAB Prov:SINGH ALY 11/01/18 Levofloxacin* (Levaquin*) 500 Mg Tablet, 500 MG PO DAILY for 7 Days, TAB Prov:SINGH ALY 11/01/18 Reported Medications Montelukast Sodium* (Montelukast Sodium*) 10 Mg Tablet, 10 MG PO QHS, #30 TAB 10/28/18 Docusate Sodium* (Colace*) 100 Mg Capsule, 100 MG PO BID, #60 CAP 10/28/18 Azithromycin* (Azithromycin*) 250 Mg Tablet, 250 MG PO DAILY, #4 TAB 10/28/18 Albuterol Sulfate* (Albuterol Sulfate* Neb) 0.083%-3 Ml Neb, 2.5 MG NEB Q6, #30 VIAL 10/28/18 Budesonide* (Budesonide*) 0.5 Mg/2 Ml Ampul.neb, 0.5 MG INHALATION BID, AMP 10/28/18 Discontinued Reported Medications Prednisone* (Prednisone*) 20 Mg Tab, 40 MG PO DAILY, TAB 10/28/18 Nystatin (Nystatin) 500,000 Unit Tablet, 117438 UNIT PO QID, TAB 10/28/18 Enoxaparin Sodium (Enoxaparin Sodium) 40 Mg/0.4 Ml Syringe, 40 MG SQ DAILY, SYR 10/28/18 Acetaminophen with Codeine (Acetaminophen-Cod #3 Tablet) 1 Each Tablet, 1 TAB PO TID, #7 TAB 10/28/18 Medications Current Medications Acetaminophen/ Hydrocodone Bitart ([place] (5/325)) 1 tab TID PO Last administered on 11/02/18at 12:30; Admin Dose 1 TAB; Start 10/28/18 at 22:00 Azithromycin (Zithromax) 250 mg DAILY PO Last administered on 11/02/18at 09:05; Admin Dose 250 MG; Start 10/29/18 at 09:00 Budesonide (Pulmicort (Neb)) 0.5 mg BID RESP THERAPY NEB Last administered on 11/02/18at 09:15; Admin Dose 0.5 MG; Start 10/28/18 at 21:21 Docusate Sodium (Colace) 100 mg BID PO Last administered on 11/02/18at 09:03; Admin Dose 100 MG; Start 10/28/18 at 21:00 Montelukast Sodium (Singulair) 10 mg QHS PO Last administered on 11/01/18 20:27; Admin Dose 10 MG; Start 10/28/18 at 21:00 Nystatin (Nystatin Susp) 5 ml QID PO Last administered on 11/02/18 12:30; Admin Dose 5 ML; Start 10/28/18 at 21:29 Acetaminophen (Tylenol Tab) 650 mg Q4H PRN PO MILD PAIN(1-3)OR ELEVATED TEMP; Start 10/28/18 at 20:30 Acetaminophen/ Hydrocodone Bitart ([place] (5/325)) 1 tab Q6H PRN PO MODERATE PAIN LEVEL 4-6 Last administered on 11/02/18 06:31; Admin Dose 1 TAB; Start 10/28/18 at 20:30 Hydralazine HCl (Apresoline) 10 mg Q6H PRN IV SBP > 160; Start 10/28/18 at 20:30 Ondansetron HCl (Zofran Inj) 4 mg Q4H PRN IV NAUSEA AND/OR VOMITING; Start 10/28/18 at 20:30 Albuterol (Proventil 0.083% (Neb)) 2.5 mg Q4H RESP THERAPY HHN Last administered on 11/02/18 13:38; Admin Dose 2.5 MG; Start 10/29/18 at 13:[address] [place] (Atrovent 0.02% (Neb)) 0.5 mg Q4H RESP THERAPY HHN Last ad ministered on 11/02/18 13:38; Admin Dose 0.5 MG; Start 10/29/18 at 13:00 Diagnostic Test (Pha) (Accu-Chek) 1 ea 02 XX ; Start 10/30/18 at 02:00 Insulin Aspart (Novolog Insulin Pen) NOVOLOG *MILD* ALGORITHM WITH MEALS BEDTIME SC Last administered on 11/02/18 12:16; Admin Dose 3 UNIT; Start 10/29/18 at 12:30 Miscellaneous Information 1 ea NOTE XX ; Start 10/29/18 at 11:30 Glucose (Glutose) 15 gm Q15M PRN PO DECREASED GLUCOSE; Start 10/29/18 at 11:30 Glucose (Glutose) 22.5 gm Q15M PRN PO DECREASED GLUCOSE; Start 10/29/18 at 11:30 Dextrose (D50w Syringe) 25 ml Q15M PRN IV DECREASED GLUCOSE; Start 10/29/18 at 11:30 Dextrose (D50w Syringe) 50 ml Q15M PRN IV DECREASED GLUCOSE; Start 10/29/18 at 11:30 Glucagon (Glucagen) 1 mg Q15M PRN IM DECREASED GLUCOSE; Start 10/29/18 at 11:30 Glucose (Glutose) 15 gm Q15M PRN BUCCAL DECREASED GLUCOSE; Start 10/29/18 at 11:30 Ceftriaxone Sodium 50 ml @ 100 mls/hr Q24H IVPB Last administered on 11/02/18at 09:03; Admin Dose 100 MLS/HR; Start 10/30/18 at 08:30 Miscellaneous Information (Pending [facility] Order For Wound Care) This patient bernstein... PRN PRN XX WOUND CARE; Start 11/01/18 at 07:00 Prednisone (Prednisone) 30 mg DAILY PO Last administered on 11/02/18at 09:05; Admin Dose 30 MG; Start 11/02/18 at 09:00 Losartan Potassium (Cozaar) 50 mg DAILY PO Last administered on 11/02/18at 09:04; Admin Dose 50 MG; Start 11/01/18 at 12:30 Promethazine HCl/ Codeine (Phenergan/ Codeine) 5 ml Q4H PRN PO COUGH Last administered on 11/02/18at 05:00; Admin Dose 5 ML; Start 11/01/18 at 12:30 Assessment/Plan Assessment/Plan (Daily) IMP: 1. Acute on chronic hypercapnic and hypoxemic resp insufficiency 2. [facility] 3. Asthma RECS: 1. De-escalate abx 2. Nocturnal BiPAP 3. CS taper 4. Mobilize JEROMY BRITO MD Nov 02, 2018 15:45
[2018-11-02] MEDS ORDERED: SULF1TAB31 PO (17:08)
[2018-11-02] MEDS ORDERED: AMOX1TAB10 PO (17:10)
--- NOTE | 2018-11-02 20:23 | PN ---
Date/Time of Note Date/Time of Note DATE: 11/02/18 TIME: 20:18 Assessment/Plan Lines/Catheters IV Catheter Type (from [facility]): Saline Lock Mayen in Place (from [facility]): No Assessment/Plan Chief Complaint/Hosp Course 1. Labial abscess: Likely secondary to hidradenitis; spontaneously draining; additional purulent material expelled with manual pressure; offered patient I&D and discussed risk of worsening abscess however patient refused. She was advised to seek medical care if abscess does not continue to improve. -Heating pad to promote abscess drainage -Follow cultures -Antibiotics per sensitivity -Local care -Okay for discharge from surgical standpoint 2.Respiratory failure with hypercapnia and hypoxemia likely secondary to COPD -Per pulmonary -steroid taper -Supportive 3. Morbid obesity BMI: -diet and exercise optimization -encourage weight loss 4. Asthma history: -Pulmonary optimization 5. Hypertension: -Highly encourage weight loss -Medical management 6. Leukocytosis: ? / #1 versus current steroid use -As above -Trend Thank you. Patient seen and examined in collaboration with Dr. Carlos Meza. Subjective 24 Hr Interval Summary Large amounts of drainage from labial abscess s/p heating pad. abscess much improved and continues to drain spontaneously. Offered patient I&D today but patient refusing. No fevers, chills, sob, congested cough, cp, palpitations, bernstein, dizziness, nausea, vomiting, diarrhea, dysuria. Exam/Review of Systems Vital Signs Vitals Vital Signs Date Temp Pulse Resp B/P (MAP) Pulse Ox O2 O2 Flow FiO2 Time Delivery Rate 11/02/18 99 20 94 Nasal 3.0 17:10 Cannula 11/02/18 98.8 123/72 14:00 (89) 11/02/18 30 00:43 Intake and Output 11/01/18 11/01/18 11/02/18 1515:00 23:00 07:00 IntakeIntake Total 1400 ml 500 ml BalanceBalance 1400 ml 500 ml Exam Free Text/Dictation Constitutional: alert, oriented, well developed Psych: no complaints, anxiety (Minimal) Head: normocephalic, atraumatic Eyes: nl conjunctiva, EOMI, nl lids, nl sclera ENMT: nl external ears & nose, nl lips & teeth, mucosa pink and moist Neck: supple, non-tender Respiratory: normal air movement; No congested cough Cardiovascular: regular rate and rhythm, nl pulses Gastrointestinal: soft, non-tender Genitourinary - Female: other (Left labia majora: Multiple openings with purulent drainage spontaneously draining with area of induration (smaller)) Musculoskeletal: nl gait and stance; No joint tenderness Extremities: normal pulses Neurological: nl mental status, nl speech, nl strength Skin: No rash or lesions Results Result Diagram: 11/01/1851911/01/18 0520 CANDIDO BARTHOLOMEW NP Nov 02, 2018 20:23
== END 2018-11-02 18:23 | disposition home or self-care (01) | DRG 189 ==
LOC: TEL 18:39 → PP2 11-02 00:05
PROVIDERS: ADMIT Internal Medicine Nephrology; ATTEND Internal Medicine Nephrology
PROC: 5A09557 Assistance with Respiratory Ventilation, Greater than 96 Consecutive Hours, Continuous Positive Airway Pressure (ICD-10-PCS; principal; 2018-10-28)
PROC: 4A1HXCZ Monitoring of Products of Conception, Cardiac Rate, External Approach (ICD-10-PCS; 2018-10-29)
DX: J96.22 Acute and chronic respiratory failure with hypercapnia (principal); E87.3 Alkalosis; J45.901 Unspecified asthma with (acute) exacerbation; Z68.41 Body mass index [BMI] 40.0-44.9, adult; N76.4 Abscess of vulva; J44.0 Chronic obstructive pulmonary disease with (acute) lower respiratory infection; J96.21 Acute and chronic respiratory failure with hypoxia; J20.9 Acute bronchitis, unspecified; R73.9 Hyperglycemia, unspecified; D75.1 Secondary polycythemia; G47.30 Sleep apnea, unspecified; E66.01 Morbid (severe) obesity due to excess calories; I10 Essential (primary) hypertension; L73.2 Hidradenitis suppurativa; D72.829 Elevated white blood cell count, unspecified; Z87.891 Personal history of nicotine dependence; T38.0X5A Adverse effect of glucocorticoids and synthetic analogues, initial encounter
CPT/HCPCS: 36600; 71045; 80048; 82803; 82962; 83735; 84100; 85025; 87070; 93306; 94640; 94660; 94664; 97161; J0696; J1120; J1650; J1815; J2920; J7512

== ENCOUNTER 2018-12-18 19:58 | Inpatient (IN) | payer OTHER ==
[~2018-12-18] VITALS: Ht 157.5 cm; Wt 110.6 kg
[~2018-12-18 19:58] MED LIST: ALBU2.5V3 HHN; ALBU2.5V3 NEB; AMOX1TAB10 PO; BUDE0.5A INHALATION; DOCU-144 PO; Ipratropium 0.02% (Neb) HHN; LOSA1TAB22 PO; MONT10TA24 PO; MUPI22OI2 TOP; PRED10TA PO; SULF1TAB31 PO
[2018-12-18 21:48] VITALS: PULSE 79
[2018-12-18 22:00] VITALS: BP 175/85; PULSE 82; RESP 20
[2018-12-18 22:23] VITALS: Ht 157.5 cm; Wt 110.6 kg
[2018-12-18] MEDS ORDERED: BENZ-6 PO (23:31)
[2018-12-18] MEDS ORDERED: UDATA PO (23:31)
[2018-12-18] MEDS ORDERED: ENOX100D2 SC (23:31)
[2018-12-18] MEDS ORDERED: HYDR-4011 PO (23:31)
[2018-12-18] MEDS ORDERED: CALC600T24 PO (23:31)
[2018-12-18] MEDS ORDERED: ACET500C5 PO (23:31)
[2018-12-18] MEDS ORDERED: IPRA3AMP29 INHALATION (23:31)
[2018-12-18] MEDS ORDERED: [UNRECOGNIZED DRUG - CODE] IV (23:31)
[2018-12-18] MEDS ORDERED: ONDA4TAB13 PO (23:31)
[2018-12-18] MEDS ORDERED: TRAM50TA2 PO (23:31)
[2018-12-18] MEDS ORDERED: NYST1000 PO (23:31)
[2018-12-18] MEDS ORDERED: PANT40TA3 PO (23:31)
[2018-12-18] MEDS ORDERED: ALBU2.5V3 NEB (23:31)
[2018-12-18] MEDS ORDERED: DOCU-159 PO (23:31)
[2018-12-18] MEDS ORDERED: [UNRECOGNIZED DRUG - CODE] PO (23:31)
[2018-12-18] MEDS ORDERED: GUAI-637 PO (23:31)
[2018-12-18] MEDS ORDERED: MONT10TA21 PO (23:31)
[2018-12-18] MEDS ORDERED: BUDE1AMP INHALATION (23:31)
[2018-12-18] MEDS: ALBUTEROL/IPRATROPIUM (NEB) 3 ML AMP INH SCH (23:50)
[2018-12-18] MEDS: morphine 2 MG INJ IV PRN (23:53)
[2018-12-19] VITALS (12 sets, daily range): BP systolic 105–138; BP diastolic 56–76; PULSE 71–94; RESP 20
[2018-12-19] MEDS ORDERED: ALBUTEROL 0.083% (NEB) 2.5 MG/3 ML AMP NEB PRN (00:30)
[2018-12-19] MEDS ORDERED: hydrOXYzine HCL 2 MG/ML 5ML CUP PO PRN (00:30)
[2018-12-19] MEDS ORDERED: ACETAMINOPHEN 500 MG TAB PO PRN (00:30)
[2018-12-19] MEDS ORDERED: HYDROCODONE/APAP (5/325) TAB PO PRN (00:30)
[2018-12-19] MEDS ORDERED: ONDANSETRON 4 MG TAB PO PRN (00:30)
[2018-12-19] MEDS ORDERED: CALCIUM CARBONATE 1000 MG PO PRN (00:30)
[2018-12-19] MEDS ORDERED: CALCIUM CARBONATE 500 MG CHEW TAB PO PRN (01:00)
[2018-12-19] MEDS: HYDROCODONE/APAP (5/325) TAB PO PRN ×3 (01:22→16:22)
[2018-12-19] MEDS: SOD CHLORIDE 0.45% 1,000 ML IV SCH (01:26)
[2018-12-19] MEDS: ALBUTEROL/IPRATROPIUM (NEB) 3 ML AMP INH SCH ×5 (04:00→20:15)
[2018-12-19] MEDS: PANTOPRAZOLE (EC) 40 MG TAB PO SCH (05:31)
[2018-12-19] MEDS: morphine 2 MG INJ IV PRN ×3 (05:32→20:12)
[2018-12-19] MEDS: traMADol 50 MG TAB PO PRN ×3 (08:02→22:13)
[2018-12-19] MEDS ORDERED: SODIUM CHLORIDE 0.45% 500 ML BAG IV SCH (09:00)
[2018-12-19] MEDS: NYSTATIN SUSP 5 ML CUP PO SCH ×5 (09:00→20:11)
[2018-12-19] MEDS: BUDESONIDE (NEB) 0.5MG/2ML AMP INH SCH ×2 (09:12→20:15)
[2018-12-19] MEDS: predniSONE 20 MG TAB PO SCH (09:46)
[2018-12-19] MEDS: BENZONATATE 100 MG CAP PO PRN ×2 (09:46→20:22)
[2018-12-19] MEDS: DOCUSATE SODIUM 100 MG CAP PO SCH ×2 (09:46→20:10)
[2018-12-19] MEDS: LISINOPRIL 20 MG TAB PO SCH ×2 (09:46→20:11)
[2018-12-19] MEDS: ENOXAPARIN 100 MG/ML SYG SC SCH (09:54)
--- NOTE | 2018-12-19 13:28 | QN ---
Documentation Comment pt seen and examined AMERICO MCCLAIN MD December 19, 2018 13:28
--- NOTE | 2018-12-19 16:48 | HP ---
DATE OF ADMISSION: 12/18/2018 REASON FOR ADMISSION: Back pain and shortness of breath. HISTORY OF PRESENT ILLNESS: This is a 53-year-old female with a past medical history of COPD/sleep a pnea, asthma, morbid obesity, hypertension and migraine, who was recently admitted to [facility] in 10/2018 secondary to shortness of breath and respiratory distress. The patient was discharged home at that time in stable condition. The patient went to [facility] again on 0 12/15/2018 secondary to shortness of breath that began yesterday. The patient had been using BiPAP at home without improvement. She is also taking prednisone 20 mg b.i.d. According to the patient, she was having some low back pain. After that, she is having shocking-like pain. Since then shortness of breath have been worsening. Denied any cough, any fevers and chills. During the hospitalization at [facility], the patient was seen by pulmonary and was started on breathing. She had a est x-ray that showed no cardiomegaly, no infiltrate. The patient had ABG that showed pH of 7.39, pC O2 of 61, pO2 of 355. Lactate was 1.3. The patient had a white count of 13.9, a BUN of 27, creatini ne 0.60. BNP was 58. The patient was seen by a pulmonary consultation and was started on nebulizers round the clock and steroids. The patient also had CT of the abdomen and pelvis that showed fatty i nfiltration of the liver, patchy lower lung infiltrates bilaterally, right atelectasis, promine nt stool pattern, appendix not visualized, prominent T2 compression fracture. Consider MRI. The pat ient was transferred due to insurance reasons. PAST MEDICAL HISTORY: 1. Asthma, COPD. 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 3. Hypertension. 4. History of migraines. 5. History of morbid obesity. 6. History of neck pain. PAST SURGICAL HISTORY: and left foot bunion surgery. ALLERGIES: 1. LEVAQUIN. 2. LORAZEPAM. MEDICATIONS TAKING AT HOME: 1. Albuterol. 2. Baclofen. 3. Methadone. 4. Benzonatate. 5. Budesonide. 6. Calcium carbonate. 7. Colace. 8. Vicodin. 9. Atarax. 10. Montelukast. 11. Nystatin. 12. Zofran. 13. Spiriva. SOCIAL HISTORY: Ex-smoker, smoked 1 pack a day for many years, quit many years ago. Denies history of alcohol, any recreational drug use. Currently is , lives with her daughter in [place]. REVIEW OF SYSTEMS: The patient has low back pain and complains of some shortness of breath. Denies any cough, any abdominal pain, nausea, vomiting, diarrhea, headache, any blurry vision, any focal vincent rological deficits. PHYSICAL EXAMINATION: VITAL SIGNS: Currently, blood pressure of 105/61, afebrile, heart rate 79, respirations 20, saturati ng 91% to 92% on 2 liters. GENERAL: The patient is awake, alert, oriented, appears to be in mild to moderate distress secondary to back pain. Obese. HEENT: Pupils are equal, round, reactive to light. NECK: Supple. No JVD. HEART: Regular rate and rhythm. ABDOMEN: Soft, nontender, nondistended, normoactive bowel sounds. EXTREMITIES: A 1+ edema. LUNGS: Few scattered rhonchi. MUSCULOSKELETAL: The patient also has severe tenderness present in the T12 region. LABORATORY DATA: Show BUN of 16, creatinine 0.40. White count 8.1, hemoglobin 14.9, platelet count of 177. ASSESSMENT AND PLAN: This is a 53-year-old female who presented with: 1. Low back pain on the left with the CT findings of possible T12 fracture. We will get an MRI. 2. Shortness of breath likely secondary to chronic obstructive pulmonary disease exacerbation. 3. History of chronic hypoxia on home oxygen. 4. Morbid obesity. 5. History of chronic obstructive pulmonary disease. 6. Hyperlipidemia. 7. History of migraine. PLAN: At this period of time, the patient is admitted to telemetry. We will continue the patient on steroids, nebs round the clock. We will get an ABG. We will also call pulmonary consultation. We will get the MRI of the T and L-spine. Rest of the treatment will depend on the patient's hospitaliz ation course. Dictated By: AMERICO CEE/ED Conf#: [id number] DID#: [id number] CC: LOUIS LOPEZ MD;*EndCC*
[2018-12-19] MEDS: MONTELUKAST 10 MG TAB PO SCH (20:11)
[2018-12-19] MEDS: GUAIFENESIN 20 MG/ML 5ML CUP PO PRN (20:22)
[2018-12-20] VITALS (12 sets, daily range): BP systolic 91–133; BP diastolic 55–84; PULSE 73–95; RESP 18–22
[2018-12-20] MEDS: HYDROCODONE/APAP (5/325) TAB PO PRN ×2 (00:20→20:26)
[2018-12-20] MEDS: ALBUTEROL/IPRATROPIUM (NEB) 3 ML AMP INH SCH ×6 (00:51→20:35)
[2018-12-20] MEDS: SOD CHLORIDE 0.45% 1,000 ML IV SCH (01:02)
[2018-12-20] MEDS: morphine 2 MG INJ IV PRN ×4 (04:45→16:29)
[2018-12-20] MEDS: PANTOPRAZOLE (EC) 40 MG TAB PO SCH (06:30)
[2018-12-20] MEDS: DOCUSATE SODIUM 100 MG CAP PO SCH ×2 (08:42→20:25)
[2018-12-20] MEDS: predniSONE 20 MG TAB PO SCH (08:42)
[2018-12-20] MEDS: NYSTATIN SUSP 5 ML CUP PO SCH ×4 (08:43→20:25)
[2018-12-20] MEDS: LISINOPRIL 20 MG TAB PO SCH ×2 (08:43→20:26)
[2018-12-20] MEDS: BUDESONIDE (NEB) 0.5MG/2ML AMP INH SCH ×2 (10:19→20:35)
[2018-12-20] MEDS: ENOXAPARIN 100 MG/ML SYG SC SCH (10:46)
[2018-12-20] MEDS ORDERED: LORAZEPAM 2 MG INJ IV ONE (14:00)
[2018-12-20] MEDS ORDERED: FUROSEMIDE 20 MG INJ IV ONE (16:00)
--- NOTE | 2018-12-20 16:26 | PN ---
Date/Time of Note Date/Time of Note DATE: 12/20/18 TIME: 16:25 Assessment/Plan VTE Prophylaxis Risk score (from Ns)>0 risk: 6 SCD applied (from Ns): No SCD contraindicated: other Pharmacological prophylaxis: LMWH Lines/Catheters IV Catheter Type (from Nrsg): Peripheral IV Urinary Cath still in place: No Assessment/Plan Hospital Course 1. Low back pain on the left with the CT findings of possible T12 fracture. 2. Shortness of breath likely secondary to chronic obstructive pulmonary disease exacerbation. 3. History of chronic hypoxia on home oxygen. 4. Morbid obesity. 5. History of chronic obstructive pulmonary disease. 6. Hyperlipidemia. 7. History of migraine. Assessment/Plan - telemetry. -continue the patient on steroids, nebs round the clock. - ABG - MRI pending. - pulmonary consultation called. - MRI of the T and L-spine. -DVT proph. lovenox -GI proph. protonix Result Diagram: 12/19/1849 12/19/1849 Subjective 24 Hr Interval Summary Free Text/Dictation MRI Exam/Review of Systems Exam Vitals Vital Signs Date Temp Pulse Resp B/P (MAP) Pulse Ox O2 O2 Flow FiO2 Time Delivery Rate 12/20/18 98.0 90 20 91/56 (68) 93 Nasal 15:16 Cannula 12/20/18 4.0 13:45 Intake and Output 12/19/18 12/19/18 12/20/18 1515:00 23:00 07:00 IntakeIntake Total 700 ml 540 ml OutputOutput Total 500 ml BalanceBalance 200 ml 540 ml Medications Medication Current Medications Morphine Sulfate (morphine) 2 mg Q6H PRN IV SEVERE PAIN LEVEL 7-10 Last administered on 12/20/18at 12:42; Admin Dose 2 MG; Start 12/19/18 at 00:00 Acetaminophen (Tylenol Tab) 650 mg Q4 PRN PO prn; Start 12/19/18 at 00:30 Albuterol (Proventil 0.083% (Neb)) 2.5 mg Q6H RESP THERAPY PRN NEB SHORTNESS OF BREATH/WHEEZING; Start 12/19/18 at 00:30 Benzonatate (Tessalon) 100 mg BID PRN PO prn Last administered on 12/19/18at 20:22; Admin Dose 100 MG; Start 12/19/18 at 00:30 Budesonide (Pulmicort (Neb)) 0.5 mg BID RESP THERAPY INH Last administered on 12/20/18 10:19; Admin Dose 0.5 MG; Start 12/19/18 at 09:00 Docusate Sodium (Colace) 100 mg BID PO Last administered on 12/20/18 08:42; Admin Dose 100 MG; Start 12/19/18 at 09:00 Enoxaparin Sodium (Lovenox) 40 mg DAILY SC Last administered on 12/20/18 10:46; Admin Dose 40 MG; Start 12/19/18 at 09:00 Guaifenesin (Robitussin Liquid Cup) 100 mg Q6H PRN PO COUGH Last administered on 12/19/18 20:22; Admin Dose 100 MG; Start 12/19/18 at 00:30 Acetaminophen/ Hydrocodone Bitart ([place] (5/325)) 1 tab Q6H PRN PO MODERATE PAIN LEVEL 4-6 Last administered on 12/20/18 07:29; Admin Dose 1 TAB; Start 12/19/18 at 00:30 Acetaminophen/ Hydrocodone Bitart ([place] (5/325)) 2 tab Q6H PRN PO MODERATE PAIN LEVEL 4-6 Last administered on 12/20/18 00:20; Admin Dose 2 TAB; Start 12/19/18 at 00:30 Albuterol/ Ipratropium (Duoneb) 3 ml Q4H RESP THERAPY INH Last administered on 12/20/18 13:41; Admin Dose 3 ML; Start 12/19/18 at 01:00 Montelukast Sodium (Singulair) 10 mg QHS PO ; Start 12/19/18 at 21:00 Nystatin (Nystatin Susp) 5 ml QID PO ; Start 12/19/18 at 09:00 Ondansetron HCl (Zofran Tab) 4 mg Q6H PRN PO NAUSEA AND/OR VOMITING Last administered on 12/19/18 20:22; Admin Dose 4 MG; Start 12/19/18 at 00:30 Pantoprazole (Protonix Tab) 40 mg DAILY@0600 PO Last administered on 12/20/18 06:30; Admin Dose 40 MG; Start 12/19/18 at 06:00 Prednisone (Prednisone) 40 mg DAILY PO Last administered on 12/20/18at 08:42; Admin Dose 40 MG; Start 12/19/18 at 09:00 Tramadol HCl (Ultram) 50 mg Q6H PRN PO MODERATE PAIN LEVEL 4-6 Last administered on 12/19/18at 22:13; Admin Dose 50 MG; Start 12/19/18 at 00:30 Lisinopril (Zestril) 20 mg BID PO Last administered on 12/19/18at 20:11; Admin Dose 20 MG; Start 12/19/18 at 09:00 Calcium Carbonate (Tums) 1,000 mg Q4H PRN PO HEARTBURN; Start 12/19/18 at 01:00 Hydroxyzine HCl (Atarax) 25 mg BID PRN PO ITCHING; Start 12/19/18 at 00:35 Alprazolam (Xanax) 0.5 mg ONCE ONCE PO ; Start 12/20/18 at 16:30; Stop 12/20/18 at 16:31; Status SINGH NG December 20, 2018 16:26
[2018-12-20] MEDS ORDERED: ALPRAZOLAM 0.25 MG TAB PO ONE (16:30)
[2018-12-20] MEDS: MONTELUKAST 10 MG TAB PO SCH (20:25)
[2018-12-20] MEDS: GUAIFENESIN 20 MG/ML 5ML CUP PO PRN (20:29)
[2018-12-21] VITALS (10 sets, daily range): BP systolic 117–151; BP diastolic 66–86; PULSE 72–91; RESP 18–22
[2018-12-21] MEDS: morphine 2 MG INJ IV PRN ×4 (00:30→20:50)
[2018-12-21] MEDS: ALBUTEROL/IPRATROPIUM (NEB) 3 ML AMP INH SCH ×6 (01:09→21:09)
[2018-12-21] MEDS: HYDROCODONE/APAP (5/325) TAB PO PRN ×4 (03:22→23:05)
[2018-12-21] MEDS: PANTOPRAZOLE (EC) 40 MG TAB PO SCH (05:35)
[2018-12-21] MEDS: BUDESONIDE (NEB) 0.5MG/2ML AMP INH SCH ×2 (08:21→21:09)
[2018-12-21] MEDS: NYSTATIN SUSP 5 ML CUP PO SCH ×4 (08:37→19:59)
[2018-12-21] MEDS: DOCUSATE SODIUM 100 MG CAP PO SCH ×2 (08:37→19:59)
[2018-12-21] MEDS: predniSONE 20 MG TAB PO SCH (08:37)
[2018-12-21] MEDS: LISINOPRIL 20 MG TAB PO SCH ×2 (08:38→19:59)
[2018-12-21] MEDS: ENOXAPARIN 100 MG/ML SYG SC SCH (09:09)
--- NOTE | 2018-12-21 14:34 | PN ---
Date/Time of Note Date/Time of Note DATE: 12/21/18 TIME: 14:32 Assessment/Plan VTE Prophylaxis Risk score (from Ns)>0 risk: 3 SCD applied (from Ns): No SCD contraindicated: other Pharmacological prophylaxis: LMWH Lines/Catheters [facility]from [facility] Saline Lock Urinary Cath still in place: No Assessment/Plan Hospital Course 1. Low back pain on the left with the CT findings of possible T12 fracture. 2. Shortness of breath likely secondary to chronic obstructive pulmonary disease exacerbation. 3. History of chronic hypoxia on home oxygen. 4. Morbid obesity. 5. History of chronic obstructive pulmonary disease. 6. Hyperlipidemia. 7. History of migraine. Assessment/Plan -Was not able to tolerate MRI scan procedure -telemetry. -continue the patient on steroids, nebs round the clock. - ABG - MRI pending, given order Morphine 3 mg once prior to procedure. - pulmonary consultation called. - MRI of the T and L-spine. -DVT proph. lovenox -GI proph. protonix Result Diagram: 12/21/18 0634 12/21/18 0550 Results 24hrs Laboratory Tests Test 12/21/18 05:50 12/21/18 06:34 Sodium Level 140 Potassium Level 4.2 Chloride Level 106 Carbon Dioxide Level 29 Anion Gap 5 Blood Urea Nitrogen 21 H Creatinine 0.45 Est Glomerular Filtrat Rate mL/min > 60 Glucose Level 92 Calcium Level 9.2 White Blood Count 8.6 Red Blood Count 4.48 Hemoglobin 14.5 Hematocrit 45.3 Mean Corpuscular Volume 101.1 H Mean Corpuscular Hemoglobin 32.4 Mean Corpuscular Hemoglobin Concent 32.0 Red Cell Distribution Width 14.9 H Platelet Count 179 Mean Platelet Volume 10.3 Immature Granulocytes % 0.500 H Neutrophils % 62.5 Lymphocytes % 28.8 Monocytes % 7.6 Eosinophils % 0.5 Basophils % 0.1 Nucleated Red Blood Cells % 0.0 Immature Granulocytes # 0.040 H Neutrophils # 5.4 Lymphocytes # 2.5 Monocytes # 0.7 Eosinophils # 0.0 Basophils # 0.0 Nucleated Red Blood Cells # 0.0 Hemoglobin A1c 5.9 Subjective 24 Hr Interval Summary Respiratory: cough, shortness of breath, wheezing Musculoskeletal: bone/joint pain (BACK PAIN ) Exam/Review of Systems Exam Vitals Vital Signs Date Temp Pulse Resp B/P (MAP) Pulse Ox O2 O2 Flow FiO2 Time Delivery Rate 12/21/18 85 13:28 12/21/18 18 96 Nasal 4.0 13:08 Cannula 12/21/18 98.2 128/66 11:07 (86) Intake and Output 12/20/18 12/20/18 12/21/18 1515:00 23:00 07:00 IntakeIntake Total 760 ml 600 ml BalanceBalance 760 ml 600 ml Exam OBESE Constitutional: alert, oriented Head: normocephalic Respiratory: congested cough, crackles/rales, diminished breath sounds, wheezing Cardiovascular: regular rate and rhythm Gastrointestinal: soft Musculoskeletal: muscle weakness Skin: ecchymosis Results Results 24hrs Laboratory Tests Test 12/21/18 05:50 12/21/18 06:34 Sodium Level 140 Potassium Level 4.2 Chloride Level 106 Carbon Dioxide Level 29 Anion Gap 5 Blood Urea Nitrogen 21 H Creatinine 0.45 Est Glomerular Filtrat Rate mL/min > 60 Glucose Level 92 Calcium Level 9.2 White Blood Count 8.6 Red Blood Count 4.48 Hemoglobin 14.5 Hematocrit 45.3 Mean Corpuscular Volume 101.1 H Mean Corpuscular Hemoglobin 32.4 Mean Corpuscular Hemoglobin Concent 32.0 Red Cell Distribution Width 14.9 H Platelet Count 179 Mean Platelet Volume 10.3 Immature Granulocytes % 0.500 H Neutrophils % 62.5 Lymphocytes % 28.8 Monocytes % 7.6 Eosinophils % 0.5 Basophils % 0.1 Nucleated Red Blood Cells % 0.0 Immature Granulocytes # 0.040 H Neutrophils # 5.4 Lymphocytes # 2.5 Monocytes # 0.7 Eosinophils # 0.0 Basophils # 0.0 Nucleated Red Blood Cells # 0.0 Hemoglobin A1c 5.9 Medications Medication Current Medications Morphine Sulfate (morphine) 2 mg Q6H PRN IV SEVERE PAIN LEVEL 7-10 Last administered on 12/21/18at 14:19; Admin Dose 2 MG; Start 12/19/18 at 00:00 Acetaminophen (Tylenol Tab) 650 mg Q4 PRN PO prn; Start 12/19/18 at 00:30 Albuterol (Proventil 0.083% (Neb)) 2.5 mg Q6H RESP THERAPY PRN NEB SHORTNESS OF BREATH/WHEEZING; Start 12/19/18 at 00:30 Benzonatate (Tessalon) 100 mg BID PRN PO prn Last administered on 12/19/18 20:22; Admin Dose 100 MG; Start 12/19/18 at 00:30 Budesonide (Pulmicort (Neb)) 0.5 mg BID RESP THERAPY INH Last administered on 12/21/18 08:21; Admin Dose 0.5 MG; Start 12/19/18 at 09:00 Docusate Sodium (Colace) 100 mg BID PO Last administered on 12/21/18 08:37; Admin Dose 100 MG; Start 12/19/18 at 09:00 Enoxaparin Sodium (Lovenox) 40 mg DAILY SC Last administered on 12/21/18 09:09; Admin Dose 40 MG; Start 12/19/18 at 09:00 Guaifenesin (Robitussin Liquid Cup) 100 mg Q6H PRN PO COUGH Last administered on 12/20/18 20:29; Admin Dose 100 MG; Start 12/19/18 at 00:30 Acetaminophen/ Hydrocodone Bitart ([place] (5/325)) 1 tab Q6H PRN PO MODERATE PAIN LEVEL 4-6 Last administered on 12/20/18 07:29; Admin Dose 1 TAB; Start 12/19/18 at 00:30 Acetaminophen/ Hydrocodone Bitart ([place] (5/325)) 2 tab Q6H PRN PO MODERATE PAIN LEVEL 4-6 Last administered on 12/21/18 11:24; Admin Dose 2 TAB; Start 12/19/18 at 00:30 Albuterol/ Ipratropium (Duoneb) 3 ml Q4H RESP THERAPY INH Last administered on 12/21/18 13:07; Admin Dose 3 ML; Start 12/19/18 at 01:00 Montelukast Sodium (Singulair) 10 mg QHS PO Last administered on 12/20/18 20:2 5; Admin Dose 10 MG; Start 12/19/18 at 21:00 Nystatin (Nystatin Susp) 5 ml QID PO Last administered on 12/21/18 12:21; Admin Dose 5 ML; Start 12/19/18 at 09:00 Ondansetron HCl (Zofran Tab) 4 mg Q6H PRN PO NAUSEA AND/OR VOMITING Last administered on 12/19/18 20:22; Admin Dose 4 MG; Start 12/19/18 at 00:30 Pantoprazole (Protonix Tab) 40 mg DAILY@0600 PO Last administered on 12/21/18 05:35; Admin Dose 40 MG; Start 12/19/18 at 06:00 Prednisone (Prednisone) 40 mg DAILY PO Last administered on 12/21/18at 08:37; Admin Dose 40 MG; Start 12/19/18 at 09:00 Tramadol HCl (Ultram) 50 mg Q6H PRN PO MODERATE PAIN LEVEL 4-6 Last administered on 12/19/18at 22:13; Admin Dose 50 MG; Start 12/19/18 at 00:30 Lisinopril (Zestril) 20 mg BID PO Last administered on 12/21/18at 08:38; Admin Dose 20 MG; Start 12/19/18 at 09:00 Calcium Carbonate (Tums) 1,000 mg Q4H PRN PO HEARTBURN; Start 12/19/18 at 01:00 Hydroxyzine HCl (Atarax) 25 mg BID PRN PO ITCHING; Start 12/19/18 at 00:35 SINGH ALY December 21, 2018 14:34
[2018-12-21] MEDS ORDERED: morphine 4 MG/ML VIAL IV PRN (15:00)
--- NOTE | 2018-12-21 17:34 | CONS ---
Assessment/Plan Assessment/Plan Assessment/Plan (Daily) IMP: 1. Acute decompensate RHF 2. [facility] RECS: 1. Obtain ECHO 2. Lasix 20 mg IV BID 3. Start BiPAP 27/03 4. Titrate O2 to SpO2 88-92% Consultation Date/Type/Reason Admit Date/Time December 18, 2018 at 21:31 Date of Consultation: December 21, 2018 Type of Consult Pulm Date/Time of Note DATE: 12/21/18 TIME: 17:29 Hx of Present Illness Briefly, this is a 53-year-old female with a past medical history of COPD/sleep apnea, asthma, morbid obesity, hypertension and migraine, who was recently admitted to [facility] in 10/2018 secondary to shortness of breath and respiratory distress. The patient was discharged home at that time in stable condition. Now she presents with orthopnea and increasing SOB. She use BiPAP at home though doesn't recall settings. She is also on 3L O2 at home Constitutional: no complaints Eyes: no complaints ENT: no complaints Respiratory: shortness of breath Cardiovascular: no complaints Gastrointestinal: no complaints Genitourinary: no complaints Musculoskeletal: no complaints Skin: no complaints Neurologic: no complaints Endocrine: no complaints Lymphatic: no complaints Past Medical History as per HPI Home Meds Active Scripts Amoxicillin/Potassium Clav (Amox-Clav 875-125 mg Tablet) 875-125 mg Tab, 1 TAB PO BID for 7 Days, #20 TAB Prov:AMERICO MCCLAIN MD 11/02/18 Sulfamethoxazole/Trimethoprim* (Bactrim Ds* Tablet) 1 Each Tablet, 1 TAB PO BID for 7 Days, TAB Prov:AMERICO MCCLAIN MD 11/02/18 [Ipratropium 0.02% (Neb)] 0.5 MG/2.5 ML NEBU No Conflict Check, 0.5 MG HHN Q6 for 30 Days Prov:SINGH ALY 11/02/18 Albuterol Sulfate* (Albuterol Sulfate* Neb) 0.083%-3 Ml Neb, 2.5 MG HHN Q6 for 30 Days Prov:SINGH ALY 11/02/18 Losartan-Hydrochlorothiazide (Losartan-HCTZ) 50-12.5 Mg Tab, 1 TAB PO DAILY for 30 Days, TAB Prov:SINGH ALY 11/01/18 Mupirocin* (Bactroban*) 2% -22 Gram Oint...g., 14 APPLIC TOP TID, #1 TUB SITE OF APPLICATION: Prov:SINGH ALY 11/01/18 Prednisone* (Prednisone*) 10 Mg Tab, 30 MG PO DAILY for 5 Days, TAB Prov:SINGH ALY 11/01/18 Reported Medications Tramadol HCl (Tramadol HCl) 50 Mg Tablet, 50 MG PO Q6H PRN for PAIN, #120 TAB 12/18/18 Ondansetron Hcl* (Zofran*) 4 Mg Tab, 4 MG PO Q6 PRN for NAUSEA AND OR VOMITING, TAB 12/18/18 Hydroxyzine Hcl* (Atarax*) 2 Mg/Ml Syrup, 25 MG PO Q6H PRN for ITCHING, ML 12/18/18 Hydrocodone/Acetaminophen ([place] 5-325 Tablet) 1 Each Tablet, 2 EACH PO Q6 PRN for prn, TAB 12/18/18 Hydrocodone/Acetaminophen ([place] 5-325 Tablet) 1 Each Tablet, 1 EACH PO Q6 PRN for prn, TAB 12/18/18 Guaifenesin* (Robitussin*) 100 Mg/5 Ml Syrup, 100 MG PO Q6H PRN for COUGH, ML 12/18/18 Calcium Carbonate* (Calcium Carbonate*) 600 MG Ca Tab, 1000 MG PO Q4 PRN for prn, TAB 12/18/18 Benzonatate* (Tessalon Perle*) 100 Mg Capsule, 100 MG PO Q4 PRN for prn, CAP 12/18/18 Albuterol Sulfate* (Albuterol Sulfate* Neb) 0.083%-3 Ml Neb, 2.5 MG NEB Q6 PRN for prn, #30 VIAL 12/18/18 Acetaminophen* (Tylophen*) 500 Mg Capsule, 650 MG PO Q4 PRN for prn, TAB 12/18/18 Sodium Chloride* (1/2 NS*) 500 Ml Iv.soln., 1000 ML IV, EA 12/18/18 Prednisone (Deltasone) 20 Mg Tablet, 40 MG PO DAILY, TAB 12/18/18 Pantoprazole* (Protonix*) 40 Mg Tablet.dr, 40 MG PO DAILY, TAB 12/18/18 Nystatin (Nystatin) 100,000 Unit/1 Ml Oral.susp, 5 ML PO QID, #60 ML 12/18/18 Montelukast Sodium* (Singulair*) 10 Mg Tablet, 10 MG PO QHS, #30 TAB 12/18/18 Enoxaparin Sodium (Enoxaparin Sodium) 100 Mg/1 Ml Syringe, 40 MG SC DAILY, SYR 12/18/18 Docusate Sodium* (Docusate Sodium*) 100 Mg Capsule, 100 MG PO BID, #60 CAP 12/18/18 Budesonide* (Pulmicort*) 1 Mg/2 Ml Ampul.neb, 0.5 MG INHALATION BID, #60 AMP 12/18/18 Ipratropium-Albuterol (Ipratropium-Albuterol) 0.5-3 Mg/3 Ml Ampul.neb, 3 ML INHALATION Q4, #30 VIAL 12/18/18 Montelukast Sodium* (Montelukast Sodium*) 10 Mg Tablet, 10 MG PO QHS, #30 TAB 10/28/18 Docusate Sodium* (Colace*) 100 Mg Capsule, 100 MG PO BID, #60 CAP 10/28/18 Albuterol Sulfate* (Albuterol Sulfate* Neb) 0.083%-3 Ml Neb, 2.5 MG NEB Q6, #30 VIAL 10/28/18 Budesonide* (Budesonide*) 0.5 Mg/2 Ml Ampul.neb, 0.5 MG INHALATION BID, AMP 10/28/18 Medications Current Medications Morphine Sulfate (morphine) 2 mg Q6H PRN IV SEVERE PAIN LEVEL 7-10 Last administered on 12/21/18at 14:19; Admin Dose 2 MG; Start 12/19/18 at 00:00 Acetaminophen (Tylenol Tab) 650 mg Q4 PRN PO prn; Start 12/19/18 at 00:30 Albuterol (Proventil 0.083% (Neb)) 2.5 mg Q6H RESP THERAPY PRN NEB SHORTNESS OF BREATH/WHEEZING; Start 12/19/18 at 00:30 Benzonatate (Tessalon) 100 mg BID PRN PO prn Last administered on 12/19/18at 20:22; Admin Dose 100 MG; Start 12/19/18 at 00:30 Budesonide (Pulmicort (Neb)) 0.5 mg BID RESP THERAPY INH Last administered on 12/21/18 08:21; Admin Dose 0.5 MG; Start 12/19/18 at 09:00 Docusate Sodium (Colace) 100 mg BID PO Last administered on 12/21/18 08:37; Admin Dose 100 MG; Start 12/19/18 at 09:00 Enoxaparin Sodium (Lovenox) 40 mg DAILY SC Last administered on 12/21/18 09:09; Admin Dose 40 MG; Start 12/19/18 at 09:00 Guaifenesin (Robitussin Liquid Cup) 100 mg Q6H PRN PO COUGH Last administered on 12/20/18 20:29; Admin Dose 100 MG; Start 12/19/18 at 00:30 Acetaminophen/ Hydrocodone Bitart ([place] (5/325)) 1 tab Q6H PRN PO MODERATE PAIN LEVEL 4-6 Last administered on 12/20/18 07:29; Admin Dose 1 TAB; Start 12/19/18 at 00:30 Acetaminophen/ Hydrocodone Bitart ([place] (5/325)) 2 tab Q6H PRN PO MODERATE PAIN LEVEL 4-6 Last administered on 12/21/18 17:22; Admin Dose 2 TAB; Start 12/19/18 at 00:30 Albuterol/ Ipratropium (Duoneb) 3 ml Q4H RESP THERAPY INH Last administered on 12/21/18 16:51; Admin Dose 3 ML; Start 12/19/18 at 01:00 Montelukast Sodium (Singulair) 10 mg QHS PO Last administered on 12/20/18 20:25; Admin Dose 10 MG; Start 12/19/18 at 21:00 Nystatin (Nystatin Susp) 5 ml QID PO Last administered on 12/21/18 17:22; Admin Dose 5 ML; Start 12/19/18 at 09:00 Ondansetron HCl (Zofran Tab) 4 mg Q6H PRN PO NAUSEA AND/OR VOMITING Last administered on 12/19/18 20:22; Admin Dose 4 MG; Start 12/19/18 at 00:30 Pantoprazole (Protonix Tab) 40 mg DAILY@0600 PO Last administered on 12/21/18at 05:35; Admin Dose 40 MG; Start 12/19/18 at 06:00 Prednisone (Prednisone) 40 mg DAILY PO Last administered on 12/21/18at 08:37; Admin Dose 40 MG; Start 12/19/18 at 09:00 Tramadol HCl (Ultram) 50 mg Q6H PRN PO MODERATE PAIN LEVEL 4-6 Last administered on 12/19/18at 22:13; Admin Dose 50 MG; Start 12/19/18 at 00:30 Lisinopril (Zestril) 20 mg BID PO Last administered on 12/21/18at 08:38; Admin Dose 20 MG; Start 12/19/18 at 09:00 Calcium Carbonate (Tums) 1,000 mg Q4H PRN PO HEARTBURN; Start 12/19/18 at 01:00 Hydroxyzine HCl (Atarax) 25 mg BID PRN PO ITCHING; Start 12/19/18 at 00:35 Carisoprodol (Soma) 350 mg Q8H PRN PO PAIN; Start 12/21/18 at 17:30 Allergies: Coded Allergies: levofloxacin (Verified Allergy, Severe, 10/30/18) lorazepam (Verified Allergy, Unknown, 10/28/18) Social History Smoking Status: Former smoker Exam/Review of Systems Exam Vitals Vital Signs Date Temp Pulse Resp B/P (MAP) Pulse Ox O2 O2 Flow FiO2 Time Delivery Rate 12/21/18 79 16:58 12/21/18 36 93 Nasal 4.0 16:54 Cannula 12/21/18 98.2 128/66 11:07 (86) Intake and Output 12/20/18 12/20/18 12/21/18 1515:00 23:00 07:00 IntakeIntake Total 760 ml 600 ml BalanceBalance 760 ml 600 ml Constitutional: alert, oriented, well developed Psych: no complaints Head: normocephalic, atraumatic Eyes: nl conjunctiva, EOMI, nl lids ENMT: nl external ears & nose, nl lips & teeth, mucosa pink and moist Neck: supple, non-tender, jvd Respiratory: diminished breath sounds Cardiovascular: regular rate and rhythm, jugular venous distention (JVD) Gastrointestinal: soft, nl liver, spleen, non-tender Musculoskeletal: nl extremities to inspection Extremities: normal pulses, edema Neurological: 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 intact Results Result Diagram: 12/21/18 0634 12/21/18 0550 Results 24hrs Laboratory Tests Test 12/21/18 05:50 12/21/18 06:34 Sodium Level 140 Potassium Level 4.2 Chloride Level 106 Carbon Dioxide Level 29 Anion Gap 5 Blood Urea Nitrogen 21 H Creatinine 0.45 Est Glomerular Filtrat Rate mL/min > 60 Glucose Level 92 Calcium Level 9.2 White Blood Count 8.6 Red Blood Count 4.48 Hemoglobin 14.5 Hematocrit 45.3 Mean Corpuscular Volume 101.1 H Mean Corpuscular Hemoglobin 32.4 Mean Corpuscular Hemoglobin Concent 32.0 Red Cell Distribution Width 14.9 H Platelet Count 179 Mean Platelet Volume 10.3 Immature Granulocytes % 0.500 H Neutrophils % 62.5 Lymphocytes % 28.8 Monocytes % 7.6 Eosinophils % 0.5 Basophils % 0.1 Nucleated Red Blood Cells % 0.0 Immature Granulocytes # 0.040 H Neutrophils # 5.4 Lymphocytes # 2.5 Monocytes # 0.7 Eosinophils # 0.0 Basophils # 0.0 Nucleated Red Blood Cells # 0.0 Hemoglobin A1c 5.9 Medications Medication Current Medications Morphine Sulfate (morphine) 2 mg Q6H PRN IV SEVERE PAIN LEVEL 7-10 Last administered on 12/21/18at 14:19; Admin Dose 2 MG; Start 12/19/18 at 00:00 Acetaminophen (Tylenol Tab) 650 mg Q4 PRN PO prn; Start 12/19/18 at 00:30 Albuterol (Proventil 0.083% (Neb)) 2.5 mg Q6H RESP THERAPY PRN NEB SHORTNESS OF BREATH/WHEEZING; Start 12/19/18 at 00:30 Benzonatate (Tessalon) 100 mg BID PRN PO prn Last administered on 12/19/18at 20:22; Admin Dose 100 MG; Start 12/19/18 at 00:30 Budesonide (Pulmicort (Neb)) 0.5 mg BID RESP THERAPY INH Last administered on 12/21/18at 08:21; Admin Dose 0.5 MG; Start 12/19/18 at 09:00 Docusate Sodium (Colace) 100 mg BID PO Last administered on 12/21/18at 08:37; Admin Dose 100 MG; Start 12/19/18 at 09:00 Enoxaparin Sodium (Lovenox) 40 mg DAILY SC Last administered on 12/21/18 09:09; Admin Dose 40 MG; Start 12/19/18 at 09:00 Guaifenesin (Robitussin Liquid Cup) 100 mg Q6H PRN PO COUGH Last administered on 12/20/18 20:29; Admin Dose 100 MG; Start 12/19/18 at 00:30 Acetaminophen/ Hydrocodone Bitart ([place] (5/325)) 1 tab Q6H PRN PO MODERATE PAIN LEVEL 4-6 Last administered on 12/20/18 07:29; Admin Dose 1 TAB; Start 12/19/18 at 00:30 Acetaminophen/ Hydrocodone Bitart ([place] (5/325)) 2 tab Q6H PRN PO MODERATE PAIN LEVEL 4-6 Last administered on 12/21/18 17:22; Admin Dose 2 TAB; Start 12/19/18 at 00:30 Albuterol/ Ipratropium (Duoneb) 3 ml Q4H RESP THERAPY INH Last administered on 12/21/18 16:51; Admin Dose 3 ML; Start 12/19/18 at 01:00 Montelukast Sodium (Singulair) 10 mg QHS PO Last administered on 12/20/18 20:25; Admin Dose 10 MG; Start 12/19/18 at 21:00 Nystatin (Nystatin Susp) 5 ml QID PO Last administered on 12/21/18 17:22; Admin Dose 5 ML; Start 12/19/18 at 09:00 Ondansetron HCl (Zofran Tab) 4 mg Q6H PRN PO NAUSEA AND/OR VOMITING Last administered on 12/19/18 20:22; Admin Dose 4 MG; Start 12/19/18 at 00:30 Pantoprazole (Protonix Tab) 40 mg DAILY@0600 PO Last administered on 12/21/18 05:35; Admin Dose 40 MG; Start 12/19/18 at 06:00 Prednisone (Prednisone) 40 mg DAILY PO Last administered on 12/21/18 08:37; A dmin Dose 40 MG; Start 12/19/18 at 09:00 Tramadol HCl (Ultram) 50 mg Q6H PRN PO MODERATE PAIN LEVEL 4-6 Last administered on 5/9/19at 22:13; Admin Dose 50 MG; Start 12/19/18 at 00:30 Lisinopril (Zestril) 20 mg BID PO Last administered on 12/21/18at 08:38; Admin Dose 20 MG; Start 12/19/18 at 09:00 Calcium Carbonate (Tums) 1,000 mg Q4H PRN PO HEARTBURN; Start 12/19/18 at 01:00 Hydroxyzine HCl (Atarax) 25 mg BID PRN PO ITCHING; Start 12/19/18 at 00:35 Carisoprodol (Soma) 350 mg Q8H PRN PO PAIN; Start 12/21/18 at 17:30 JEROMY GARCIA MD December 21, 2018 17:33
[2018-12-21] MEDS ORDERED: FUROSEMIDE 20 MG INJ IV SCH (18:00)
[2018-12-21] MEDS: MONTELUKAST 10 MG TAB PO SCH (19:58)
[2018-12-21] MEDS: CARISOPRODOL 350 MG TAB PO PRN (19:58)
[2018-12-22] VITALS (7 sets, daily range): BP systolic 116–134; BP diastolic 63–79; PULSE 62–96; RESP 18–20
[2018-12-22] MEDS: ALBUTEROL/IPRATROPIUM (NEB) 3 ML AMP INH SCH ×6 (00:11→20:46)
[2018-12-22] MEDS: GUAIFENESIN 20 MG/ML 5ML CUP PO PRN (00:15)
[2018-12-22] MEDS: PANTOPRAZOLE (EC) 40 MG TAB PO SCH (06:15)
[2018-12-22] MEDS: FUROSEMIDE 20 MG INJ IV SCH (06:15)
[2018-12-22] MEDS: morphine 2 MG INJ IV PRN ×3 (07:38→19:19)
[2018-12-22] MEDS: BUDESONIDE (NEB) 0.5MG/2ML AMP INH SCH ×2 (08:03→20:47)
[2018-12-22] MEDS: LISINOPRIL 20 MG TAB PO SCH ×2 (08:17→20:43)
[2018-12-22] MEDS: predniSONE 20 MG TAB PO SCH (08:18)
[2018-12-22] MEDS: NYSTATIN SUSP 5 ML CUP PO SCH ×4 (08:18→21:28)
[2018-12-22] MEDS: DOCUSATE SODIUM 100 MG CAP PO SCH ×2 (08:18→20:42)
[2018-12-22] MEDS: ENOXAPARIN 100 MG/ML SYG SC SCH (08:21)
[2018-12-22] MEDS: HYDROCODONE/APAP (5/325) TAB PO PRN ×3 (09:45→21:27)
--- NOTE | 2018-12-22 10:28 | PN ---
Date/Time of Note Date/Time of Note DATE: 12/22/18 TIME: 10:27 Assessment/Plan VTE Prophylaxis Risk score (from Ns)>0 risk: 5 SCD applied (from Ns): No SCD contraindicated: other Pharmacological prophylaxis: LMWH Lines/Catheters IV [facility] [place] Urinary Cath still in place: No Assessment/Plan Hospital Course 1. Low back pain on the left with the CT findings of possible T12 fracture. 2. Shortness of breath likely secondary to chronic obstructive pulmonary disease exacerbation. 3. History of chronic hypoxia on home oxygen. 4. Morbid obesity. 5. History of chronic obstructive pulmonary disease. 6. Hyperlipidemia. 7. History of migraine. Assessment/Plan -Was not able to tolerate MRI scan procedure again, despite increased dose of morphine, per pt can not lay down -Xray standing chest -telemetry. -continue the patient on steroids, nebs round the clock. - pulmonary consultation called. - MRI of the T and L-spine. -DVT proph. lovenox -GI proph. protonix Result Diagram: 12/22/18 0615 12/22/18 0616 Results 24hrs Laboratory Tests Test 12/22/18 06:15 12/22/18 06:16 White Blood Count 8.8 Red Blood Count 4.63 Hemoglobin 15.0 Hematocrit 46.5 Mean Corpuscular Volume 100.4 Mean Corpuscular Hemoglobin 32.4 Mean Corpuscular Hemoglobin Concent 32.3 Red Cell Distribution Width 14.9 H Platelet Count 195 Mean Platelet Volume 10.2 Immature Granulocytes % 0.500 H Neutrophils % 62.9 Lymphocytes % 26.6 Monocytes % 9.1 Eosinophils % 0.7 Basophils % 0.2 Nucleated Red Blood Cells % 0.0 Immature Granulocytes # 0.040 H Neutrophils # 5.5 Lymphocytes # 2.3 Monocytes # 0.8 Eosinophils # 0.1 Basophils # 0.0 Nucleated Red Blood Cells # 0.0 Sodium Level 143 Potassium Level 3.9 Chloride Level 104 Carbon Dioxide Level 34 H Anion Gap 5 Blood Urea Nitrogen 17 Creatinine 0.47 Est Glomerular Filtrat Rate mL/min > 60 Glucose Level 82 Calcium Level 9.3 Subjective 24 Hr Interval Summary Musculoskeletal: back pain Exam/Review of Systems Exam Vitals Vital Signs Date Temp Pulse Resp B/P (MAP) Pulse Ox O2 O2 Flow FiO2 Time Delivery Rate 12/22/18 79 09:05 12/22/18 4.0 08:07 12/22/18 20 94 Nasal 08:04 Cannula 12/22/18 98.0 127/75 07:29 (92) Intake and Output 12/21/18 12/21/18 12/22/18 1515:00 23:00 07:00 IntakeIntake Total 850 ml 600 ml OutputOutput Total 800 ml BalanceBalance 50 ml 600 ml Constitutional: alert, oriented Respiratory: diminished breath sounds Cardiovascular: regular rate and rhythm Musculoskeletal: joint tenderness (back ribs), muscle weakness Results Results 24hrs Laboratory Tests Test 12/22/18 06:15 12/22/18 06:16 White Blood Count 8.8 Red Blood Count 4.63 Hemoglobin 15.0 Hematocrit 46.5 Mean Corpuscular Volume 100.4 Mean Corpuscular Hemoglobin 32.4 Mean Corpuscular Hemoglobin Concent 32.3 Red Cell Distribution Width 14.9 H Platelet Count 195 Mean Platelet Volume 10.2 Immature Granulocytes % 0.500 H Neutrophils % 62.9 Lymphocytes % 26.6 Monocytes % 9.1 Eosinophils % 0.7 Basophils % 0.2 Nucleated Red Blood Cells % 0.0 Immature Granulocytes # 0.040 H Neutrophils # 5.5 Lymphocytes # 2.3 Monocytes # 0.8 Eosinophils # 0.1 Basophils # 0.0 Nucleated Red Blood Cells # 0.0 Sodium Level 143 Potassium Level 3.9 Chloride Level 104 Carbon Dioxide Level 34 H Anion Gap 5 Blood Urea Nitrogen 17 Creatinine 0.47 Est Glomerular Filtrat Rate mL/min > 60 Glucose Level 82 Calcium Level 9.3 Medications Medication Current Medications Morphine Sulfate (morphine) 2 mg Q6H PRN IV SEVERE PAIN LEVEL 7-10 Last administered on 12/22/18at 07:38; Admin Dose 2 MG; Start 12/19/18 at 00:00 Acetaminophen (Tylenol Tab) 650 mg Q4 PRN PO prn; Start 12/19/18 at 00:30 Albuterol (Proventil 0.083% (Neb)) 2.5 mg Q6H RESP THERAPY PRN NEB SHORTNESS OF BREATH/WHEEZING; Start 12/19/18 at 00:30 Benzonatate (Tessalon) 100 mg BID PRN PO prn Last administered on 12/19/18at 20:22; Admin Dose 100 MG; Start 12/19/18 at 00:30 Budesonide (Pulmicort (Neb)) 0.5 mg BID RESP THERAPY INH Last administered on 12/22/18 08:03; Admin Dose 0.5 MG; Start 12/19/18 at 09:00 Docusate Sodium (Colace) 100 mg BID PO Last administered on 12/22/18 08:18; Admin Dose 100 MG; Start 12/19/18 at 09:00 Enoxaparin Sodium (Lovenox) 40 mg DAILY SC Last administered on 12/22/18 08:21; Admin Dose 40 MG; Start 12/19/18 at 09:00 Guaifenesin (Robitussin Liquid Cup) 100 mg Q6H PRN PO COUGH Last administered on 12/22/18 00:15; Admin Dose 100 MG; Start 12/19/18 at 00:30 Acetaminophen/ Hydrocodone Bitart ([place] (5/325)) 1 tab Q6H PRN PO MODERATE PAIN LEVEL 4-6 Last administered on 12/20/18 07:29; Admin Dose 1 TAB; Start 12/19/18 at 00:30 Acetaminophen/ Hydrocodone Bitart ([place] (5/325)) 2 tab Q6H PRN PO MODERATE PAIN LEVEL 4-6 Last administered on 12/22/18 09:45; Admin Dose 2 TAB; Start 12/19/18 at 00:30 Albuterol/ Ipratropium (Duoneb) 3 ml Q4H RESP THERAPY INH Last administered on 12/22/18 08:03; Admin Dose 3 ML; Start 12/19/18 at 01:00 Montelukast Sodium (Singulair) 10 mg QHS PO Last administered on 12/21/18 19:58; Admin Dose 10 MG; Start 12/19/18 at 21:00 Nystatin (Nystatin Susp) 5 ml QID PO Last administered on 12/22/18 08:18; Admin Dose 5 ML; Start 12/19/18 at 09:00 Ondansetron HCl (Zofran Tab) 4 mg Q6H PRN PO NAUSEA AND/OR VOMITING Last administered on 12/19/18 20:22; Admin Dose 4 MG; Start 12/19/18 at 00:30 Pantoprazole (Protonix Tab) 40 mg DAILY@0600 PO Last administered on 12/22/18 06:15; Admin Dose 40 MG; Start 12/19/18 at 06:00 Prednisone (Prednisone) 40 mg DAILY PO Last administered on 12/22/18 08:18; Admin Dose 40 MG; Start 12/19/18 at 09:00 Tramadol HCl (Ultram) 50 mg Q6H PRN PO MODERATE PAIN LEVEL 4-6 Last administered on 12/19/18at 22:13; Admin Dose 50 MG; Start 12/19/18 at 00:30 Lisinopril (Zestril) 20 mg BID PO Last administered on 12/22/18 08:17; Admin Dose 20 MG; Start 12/19/18 at 09:00 Calcium Carbonate (Tums) 1,000 mg Q4H PRN PO HEARTBURN; Start 12/19/18 at 01:00 Hydroxyzine HCl (Atarax) 25 mg BID PRN PO ITCHING; Start 12/19/18 at 00:35 Carisoprodol (Soma) 350 mg Q8H PRN PO PAIN Last administered on 12/21/18at 19:58; Admin Dose 350 MG; Start 12/21/18 at 17:30 Furosemide (Lasix) 20 mg DAILY@0600 IV Last administered on 12/22/18 06:15; Admin Dose 20 MG; Start 12/22/18 at 06:00 SINGH ALY December 22, 2018 10:28
[2018-12-22] MEDS: CARISOPRODOL 350 MG TAB PO PRN (12:05)
[2018-12-22] MEDS: hydrOXYzine HCL 25 MG TAB PO PRN ×2 (13:42→21:27)
--- NOTE | 2018-12-22 15:36 | CONS ---
Consult Date/Type/Reason Admit Date/Time December 18, 2018 at 21:31 Initial Consult Date 12/21/18 Type of Consultation: Pulm Date/Time of Note DATE: 12/22/18 TIME: 15:34 Subjective Sleeping at time of my visit. Off BiPAP; tolerated BiPAP overnight Objective Vitals Vital Signs Date Temp Pulse Resp B/P (MAP) Pulse Ox O2 O2 Flow FiO2 Time Delivery Rate 12/22/18 Nasal 2.0 14:00 Cannula 12/22/18 77 20 93 12:34 12/22/18 98.0 116/63 12:10 (80) Intake and Output 12/21/18 12/21/18 12/22/18 1414:59 22:59 06:59 IntakeIntake Total 850 ml 600 ml OutputOutput Total 800 ml BalanceBalance 50 ml 600 ml Exam HEENT: Neck supple; + JVD; no LAD CVS: RRR, S1 and S2 CHEST: Distant BS ABD: Obese soft, NT, + BS EXT: No c/c; tr edema Results/Medications Result Diagram: 12/22/1815 12/22/18 0616 Results 24 hrs Laboratory Tests Test 12/22/18 06:15 12/22/18 06:16 White Blood Count 8.8 Red Blood Count 4.63 Hemoglobin 15.0 Hematocrit 46.5 Mean Corpuscular Volume 100.4 Mean Corpuscular Hemoglobin 32.4 Mean Corpuscular Hemoglobin Concent 32.3 Red Cell Distribution Width 14.9 H Platelet Count 195 Mean Platelet Volume 10.2 Immature Granulocytes % 0.500 H Neutrophils % 62.9 Lymphocytes % 26.6 Monocytes % 9.1 Eosinophils % 0.7 Basophils % 0.2 Nucleated Red Blood Cells % 0.0 Immature Granulocytes # 0.040 H Neutrophils # 5.5 Lymphocytes # 2.3 Monocytes # 0.8 Eosinophils # 0.1 Basophils # 0.0 Nucleated Red Blood Cells # 0.0 Sodium Level 143 Potassium Level 3.9 Chloride Level 104 Carbon Dioxide Level 34 H Anion Gap 5 Blood Urea Nitrogen 17 Creatinine 0.47 Est Glomerular Filtrat Rate mL/min > 60 Glucose Level 82 Calcium Level 9.3 Home Meds Active Scripts Amoxicillin/Potassium Clav (Amox-Clav 875-125 mg Tablet) 875-125 mg Tab, 1 TAB PO BID for 7 Days, #20 TAB Prov:AMERICO MCCLAIN MD 11/02/18 Sulfamethoxazole/Trimethoprim* (Bactrim Ds* Tablet) 1 Each Tablet, 1 TAB PO BID for 7 Days, TAB Prov:AMERICO MCCLAIN MD 11/02/18 [Ipratropium 0.02% (Neb)] 0.5 MG/2.5 ML NEBU No Conflict Check, 0.5 MG HHN Q6 for 30 Days Prov:SINGH ALY 11/02/18 Albuterol Sulfate* (Albuterol Sulfate* Neb) 0.083%-3 Ml Neb, 2.5 MG HHN Q6 for 30 Days Prov:SINGH ALY 11/02/18 Losartan-Hydrochlorothiazide (Losartan-HCTZ) 50-12.5 Mg Tab, 1 TAB PO DAILY for 30 Days, TAB Prov:SINGH ALY 11/01/18 Mupirocin* (Bactroban*) 2% -22 Gram Oint...g., 14 APPLIC TOP TID, #1 TUB SITE OF APPLICATION: Prov:SINGH ALY 11/01/18 Prednisone* (Prednisone*) 10 Mg Tab, 30 MG PO DAILY for 5 Days, TAB Prov:SINGH ALY 11/01/18 Reported Medications Tramadol HCl (Tramadol HCl) 50 Mg Tablet, 50 MG PO Q6H PRN for PAIN, #120 TAB 12/18/18 Ondansetron Hcl* (Zofran*) 4 Mg Tab, 4 MG PO Q6 PRN for NAUSEA AND OR VOMITING, TAB 12/18/18 Hydroxyzine Hcl* (Atarax*) 2 Mg/Ml Syrup, 25 MG PO Q6H PRN for ITCHING, ML 12/18/18 Hydrocodone/Acetaminophen ([place] 5-325 Tablet) 1 Each Tablet, 2 EACH PO Q6 PRN for prn, TAB 12/18/18 Hydrocodone/Acetaminophen ([place] 5-325 Tablet) 1 Each Tablet, 1 EACH PO Q6 PRN for prn, TAB 12/18/18 Guaifenesin* (Robitussin*) 100 Mg/5 Ml Syrup, 100 MG PO Q6H PRN for COUGH, ML 12/18/18 Calcium Carbonate* (Calcium Carbonate*) 600 MG Ca Tab, 1000 MG PO Q4 PRN for prn, TAB 12/18/18 Benzonatate* (Tessalon Perle*) 100 Mg Capsule, 100 MG PO Q4 PRN for prn, CAP 12/18/18 Albuterol Sulfate* (Albuterol Sulfate* Neb) 0.083%-3 Ml Neb, 2.5 MG NEB Q6 PRN for prn, #30 VIAL 12/18/18 Acetaminophen* (Tylophen*) 500 Mg Capsule, 650 MG PO Q4 PRN for prn, TAB 12/18/18 Sodium Chloride* (1/2 NS*) 500 Ml Iv.soln., 1000 ML IV, EA 12/18/18 Prednisone (Deltasone) 20 Mg Tablet, 40 MG PO DAILY, TAB 12/18/18 Pantoprazole* (Protonix*) 40 Mg Tablet.dr, 40 MG PO DAILY, TAB 12/18/18 Nystatin (Nystatin) 100,000 Unit/1 Ml Oral.susp, 5 ML PO QID, #60 ML 12/18/18 Montelukast Sodium* (Singulair*) 10 Mg Tablet, 10 MG PO QHS, #30 TAB 12/18/18 Enoxaparin Sodium (Enoxaparin Sodium) 100 Mg/1 Ml Syringe, 40 MG SC DAILY, SYR 12/18/18 Docusate Sodium* (Docusate Sodium*) 100 Mg Capsule, 100 MG PO BID, #60 CAP 12/18/18 Budesonide* (Pulmicort*) 1 Mg/2 Ml Ampul.neb, 0.5 MG INHALATION BID, #60 AMP 12/18/18 Ipratropium-Albuterol (Ipratropium-Albuterol) 0.5-3 Mg/3 Ml Ampul.neb, 3 ML INHALATION Q4, #30 VIAL 12/18/18 Montelukast Sodium* (Montelukast Sodium*) 10 Mg Tablet, 10 MG PO QHS, #30 TAB 10/28/18 Docusate Sodium* (Colace*) 100 Mg Capsule, 100 MG PO BID, #60 CAP 10/28/18 Albuterol Sulfate* (Albuterol Sulfate* Neb) 0.083%-3 Ml Neb, 2.5 MG NEB Q6, #30 VIAL 10/28/18 Budesonide* (Budesonide*) 0.5 Mg/2 Ml Ampul.neb, 0.5 MG INHALATION BID, AMP 10/28/18 Medications Current Medications Morphine Sulfate (morphine) 2 mg Q6H PRN IV SEVERE PAIN LEVEL 7-10 Last administered on 12/22/18 13:32; Admin Dose 2 MG; Start 12/19/18 at 00:00 Acetaminophen (Tylenol Tab) 650 mg Q4 PRN PO prn; Start 12/19/18 at 00:30 Albuterol (Proventil 0.083% (Neb)) 2.5 mg Q6H RESP THERAPY PRN NEB SHORTNESS OF BREATH/WHEEZING; Start 12/19/18 at 00:30 Benzonatate (Tessalon) 100 mg BID PRN PO prn Last administered on 12/19/18 20:22; Admin Dose 100 MG; Start 12/19/18 at 00:30 Budesonide (Pulmicort (Neb)) 0.5 mg BID RESP THERAPY INH Last administered on 12/22/18 08:03; Admin Dose 0.5 MG; Start 12/19/18 at 09:00 Docusate Sodium (Colace) 100 mg BID PO Last administered on 12/22/18 08:18; Admin Dose 100 MG; Start 12/19/18 at 09:00 Enoxaparin Sodium (Lovenox) 40 mg DAILY SC Last administered on 12/22/18 08:21; Admin Dose 40 MG; Start 12/19/18 at 09:00 Guaifenesin (Robitussin Liquid Cup) 100 mg Q6H PRN PO COUGH Last administered on 12/22/18 00:15; Admin Dose 100 MG; Start 12/19/18 at 00:30 Acetaminophen/ Hydrocodone Bitart ([place] (5/325)) 1 tab Q6H PRN PO MODERATE PAIN LEVEL 4-6 Last administered on 12/20/18 07:29; Admin Dose 1 TAB; Start 12/19/18 at 00:30 Acetaminophen/ Hydrocodone Bitart ([place] (5/325)) 2 tab Q6H PRN PO MODERATE PAIN LEVEL 4-6 Last administered on 12/22/18 15:31; Admin Dose 2 TAB; Start 12/19/18 at 00:30 Albuterol/ Ipratropium (Duoneb) 3 ml Q4H RESP THERAPY INH Last administered on 12/22/18 12:34; Admin Dose 3 ML; Start 12/19/18 at 01:00 Montelukast Sodium (Singulair) 10 mg QHS PO Last administered on 12/21/18 19:58; Admin Dose 10 MG; Start 12/19/18 at 21:00 Nystatin (Nystatin Susp) 5 ml QID PO Last administered on 12/22/18 12:37; Admin Dose 5 ML; Start 12/19/18 at 09:00 Ondansetron HCl (Zofran Tab) 4 mg Q6H PRN PO NAUSEA AND/OR VOMITING Last administered on 12/19/18 20:22; Admin Dose 4 MG; Start 12/19/18 at 00:30 Pantoprazole (Protonix Tab) 40 mg DAILY@0600 PO Last administered on 12/22/18 06:15; Admin Dose 40 MG; Start 12/19/18 at 06:00 Prednisone (Prednisone) 40 mg DAILY PO Last administered on 12/22/18 08:18; Admin Dose 40 MG; Start 12/19/18 at 09:00 Tramadol HCl (Ultram) 50 mg Q6H PRN PO MODERATE PAIN LEVEL 4-6 Last administered on 12/19/18 22:13; Admin Dose 50 MG; Start 12/19/18 at 00:30 Lisinopril (Zestril) 20 mg BID PO Last administered on 12/22/18 08:17; Admin Dose 20 MG; Start 12/19/18 at 09:00 Calcium Carbonate (Tums) 1,000 mg Q4H PRN PO HEARTBURN; Start 12/19/18 at 01:00 Hydroxyzine HCl (Atarax) 25 mg BID PRN PO ITCHING Last administered on 12/22/18 13:42; Admin Dose 25 MG; Start 12/19/18 at 00:35 Carisoprodol (Soma) 350 mg Q8H PRN PO PAIN Last administered on 12/22/18 12:05; Admin Dose 350 MG; Start 12/21/18 at 17:30 Furosemide (Lasix) 20 mg DAILY@0600 IV Last administered on 12/22/18 06:15; Admin Dose 20 MG; Start 12/22/18 at 06:00 Assessment/Plan Assessment/Plan (Daily) IMP: 1. Acute decompensate RHF 2. [facility] RECS: 1. Await ECHO 2. Lasix 20 mg IV BID; continue until we see a bump in creatinine 3. BiPAP 27/03 4. Titrate O2 to SpO2 88-92% JEROMY GARCIA MD December 22, 2018 15:36
[2018-12-22] MEDS: MONTELUKAST 10 MG TAB PO SCH (20:42)
[2018-12-23] MEDS: ALBUTEROL/IPRATROPIUM (NEB) 3 ML AMP INH SCH ×6 (01:32→21:02)
[2018-12-23] MEDS: morphine 2 MG INJ IV PRN ×4 (01:44→20:41)
[2018-12-23 01:56] VITALS: BP 144/68; PULSE 79; RESP 18
[2018-12-23] MEDS: traMADol 50 MG TAB PO PRN (03:16)
[2018-12-23] MEDS: HYDROCODONE/APAP (5/325) TAB PO PRN ×4 (03:47→22:06)
[2018-12-23] MEDS: GUAIFENESIN 20 MG/ML 5ML CUP PO PRN ×2 (03:47→09:51)
[2018-12-23] MEDS: PANTOPRAZOLE (EC) 40 MG TAB PO SCH (06:50)
[2018-12-23] MEDS: FUROSEMIDE 20 MG INJ IV SCH (06:51)
[2018-12-23] MEDS: hydrOXYzine HCL 25 MG TAB PO PRN (07:13)
[2018-12-23 07:58] VITALS: BP 106/58; PULSE 81; RESP 19
[2018-12-23] MEDS: predniSONE 20 MG TAB PO SCH (08:24)
[2018-12-23] MEDS: DOCUSATE SODIUM 100 MG CAP PO SCH ×2 (08:24→21:43)
[2018-12-23] MEDS: LISINOPRIL 20 MG TAB PO SCH ×2 (08:26→21:00)
[2018-12-23] MEDS: NYSTATIN SUSP 5 ML CUP PO SCH ×4 (08:26→21:43)
[2018-12-23] MEDS: CARISOPRODOL 350 MG TAB PO PRN ×2 (08:26→16:49)
[2018-12-23] MEDS: ENOXAPARIN 100 MG/ML SYG SC SCH (08:29)
[2018-12-23] MEDS: BUDESONIDE (NEB) 0.5MG/2ML AMP INH SCH ×2 (09:28→20:55)
[2018-12-23] MEDS ORDERED: DIPHENHYDRAMINE 25 MG CAP PO PRN (13:30)
[2018-12-23] MEDS ORDERED: ALPRAZOLAM 1 MG TAB PO ONE (13:30)
[2018-12-23] MEDS ORDERED: ALPRAZOLAM 0.5 MG TAB PO SCH (14:00)
[2018-12-23] MEDS ORDERED: ALPRAZOLAM 0.5 MG TAB PO PRN (14:00)
[2018-12-23 14:02] VITALS: BP 121/63; PULSE 77; RESP 19
--- NOTE | 2018-12-23 14:06 | PN ---
Date/Time of Note Date/Time of Note DATE: 12/23/18 TIME: 14:02 Assessment/Plan VTE Prophylaxis Risk score (from Ns)>0 risk: 1 SCD applied (from Ns): Yes Pharmacological prophylaxis: NA/contraindicated Pharm contraindication: low risk/ambulating Lines/Catheters IV Catheter Type (from Nrsg): [place] Urinary Cath still in place: No Assessment/Plan Assessment/Plan Hospital Course 1. Low back pain on the left with the CT findings of possible T12 fracture. at OSH 2. Shortness of breath likely secondary to chronic obstructive pulmonary disease exacerbation. 3. History of chronic hypoxia on home oxygen. 4. Morbid obesity. 5. History of chronic obstructive pulmonary disease. 6. Hyperlipidemia. 7. History of migraine. Assessment/Plan -Was not able to tolerate MRI scan procedure again, despite increased dose of morphine, per pt can not lay down - Dr basilio consult - pain control with Morphine/norco - benadryl prn - continue the patient on steroids, nebs round the clock. -DVT proph. lovenox -GI proph. protonix Result Diagram: 12/22/18 0615 12/22/18 0616 Subjective 24 Hr Interval Summary Free Text/Dictation Patient says that unable to lie down flat will get short of breath and goes for an MRI Exam/Review of Systems Exam Vitals Vital Signs Date Temp Pulse Resp B/P (MAP) Pulse Ox O2 O2 Flow FiO2 Time Delivery Rate 12/23/18 78 18 91 Nasal 3.0 12:21 Cannula 12/23/18 98.3 106/58 07:58 (74) Intake and Output 12/22/18 12/22/18 12/23/18 1414:59 22:59 06:59 IntakeIntake Total 800 ml OutputOutput Total 200 ml BalanceBalance -200 ml 800 ml Exam OBESE Constitutional: alert, oriented Head: normocephalic Respiratory: c, diminished breath sounds, wheezing Cardiovascular: regular rate and rhythm Gastrointestinal: soft Musculoskeletal: muscle weakness Skin: ecchymosis ttp upper back Medications Medication Current Medications Morphine Sulfate (morphine) 2 mg Q6H PRN IV SEVERE PAIN LEVEL 7-10 Last administered on 12/23/18at 08:27; Admin Dose 2 MG; Start 12/19/18 at 00:00 Acetaminophen (Tylenol Tab) 650 mg Q4 PRN PO prn; Start 12/19/18 at 00:30 Albuterol (Proventil 0.083% (Neb)) 2.5 mg Q6H RESP THERAPY PRN NEB SHORTNESS OF BREATH/WHEEZING; Start 12/19/18 at 00:30 Benzonatate (Tessalon) 100 mg BID PRN PO prn Last administered on 12/19/18 20:22; Admin Dose 100 MG; Start 12/19/18 at 00:30 Budesonide (Pulmicort (Neb)) 0.5 mg BID RESP THERAPY INH Last administered on 12/23/18 09:28; Admin Dose 0.5 MG; Start 12/19/18 at 09:00 Docusate Sodium (Colace) 100 mg BID PO Last administered on 12/23/18 08:24; Admin Dose 100 MG; Start 12/19/18 at 09:00 Enoxaparin Sodium (Lovenox) 40 mg DAILY SC Last administered on 12/23/18 08:29; Admin Dose 40 MG; Start 12/19/18 at 09:00 Guaifenesin (Robitussin Liquid Cup) 100 mg Q6H PRN PO COUGH Last administered on 12/23/18 09:51; Admin Dose 100 MG; Start 12/19/18 at 00:30 Acetaminophen/ Hydrocodone Bitart ([place] (5/325)) 1 tab Q6H PRN PO MODERATE PAIN LEVEL 4-6 Last administered on 12/20/18 07:29; Admin Dose 1 TAB; Start 12/19/18 at 00:30 Acetaminophen/ Hydrocodone Bitart ([place] (5/325)) 2 tab Q6H PRN PO MODERATE PAIN LEVEL 4-6 Last administered on 12/23/18 09:48; Admin Dose 2 TAB; Start 12/19/18 at 00:30 Albuterol/ Ipratropium (Duoneb) 3 ml Q4H RESP THERAPY INH Last administered on 12/23/18 12:21; Admin Dose 3 ML; Start 12/19/18 at 01:00 Montelukast Sodium (Singulair) 10 mg QHS PO Last administered on 12/22/18 20:42; Admin Dose 10 MG; Start 12/19/18 at 21:00 Nystatin (Nystatin Susp) 5 ml QID PO Last administered on 12/23/18 13:36; Admin Dose 5 ML; Start 12/19/18 at 09:00 Ondansetron HCl (Zofran Tab) 4 mg Q6H PRN PO NAUSEA AND/OR VOMITING Last administered on 12/19/18 20:22; Admin Dose 4 MG; Start 12/19/18 at 00:30 Pantoprazole (Protonix Tab) 40 mg DAILY@0600 PO Last administered on 12/23/18 06:50; Admin Dose 40 MG; Start 12/19/18 at 06:00 Prednisone (Prednisone) 40 mg DAILY PO Last administered on 12/23/18 08:24; Admin Dose 40 MG; Start 12/19/18 at 09:00 Tramadol HCl (Ultram) 50 mg Q6H PRN PO MODERATE PAIN LEVEL 4-6 Last administered on 12/23/18 03:16; Admin Dose 50 MG; Start 12/19/18 at 00:30 Lisinopril (Zestril) 20 mg BID PO Last administered on 12/22/18 20:43; Admin Dose 20 MG; Start 12/19/18 at 09:00 Calcium Carbonate (Tums) 1,000 mg Q4H PRN PO HEARTBURN; Start 12/19/18 at 01:00 Hydroxyzine HCl (Atarax) 25 mg BID PRN PO ITCHING Last administered on 12/23/18 07:13; Admin Dose 25 MG; Start 12/19/18 at 00:35 Carisoprodol (Soma) 350 mg Q8H PRN PO PAIN Last administered on 12/23/18 08:26; Admin Dose 350 MG; Start 12/21/18 at 17:30 Furosemide (Lasix) 20 mg DAILY@0600 IV Last administered on 12/23/18 06:51; Admin Dose 20 MG; Start 12/22/18 at 06:00 Diphenhydramine HCl (Benadryl) 25 mg Q6H PRN PO ITCHING; Start 12/23/18 at 13:30 Alprazolam (Xanax) 0.5 mg Q8 PRN PO ANXIETY; Start 12/23/18 at 14:00 AMERICO MCCLAIN MD December 23, 2018 14:06
--- NOTE | 2018-12-23 15:36 | CONS ---
Consult Date/Type/Reason Admit Date/Time December 18, 2018 at 21:31 Initial Consult Date 12/21/18 Type of Consult Pulmonary Date/Time of Note DATE: 12/23/18 TIME: 15:35 Subjective Anxious, states she is in significant pain and has anxiety. States she cannot lie flat in a MRI. Objective Vital Signs Date Temp Pulse Resp B/P (MAP) Pulse Ox O2 O2 Flow FiO2 Time Delivery Rate 12/23/18 98.0 77 19 121/63 96 14:02 (82) 12/23/18 Nasal 3.0 12:21 Cannula Intake and Output 12/22/18 12/22/18 12/23/18 1515:00 23:00 07:00 IntakeIntake Total 800 ml OutputOutput Total 200 ml BalanceBalance -200 ml 800 ml Exam GENERAL: Morbidly obese young lady VITAL SIGNS: per chart NECK: Supple. No JVD or lymphadenopathy. CARDIAC EXAM: S1, S2. No added sounds or murmurs. CHEST: Diminished air entry both bases ABDOMEN: Soft, nontender. No guarding or rebound. EXTREMITIES: No cyanosis, clubbing or edema. NEUROLOGIC: Generalized weakness. No focal deficits. Results/Medications Result Diagram: 12/22/1815 12/22/18 0616 Medications Current Medications Morphine Sulfate (morphine) 2 mg Q6H PRN IV SEVERE PAIN LEVEL 7-10 Last admini stered on 12/23/18at 14:31; Admin Dose 2 MG; Start 12/19/18 at 00:00 Acetaminophen (Tylenol Tab) 650 mg Q4 PRN PO prn; Start 12/19/18 at 00:30 Albuterol (Proventil 0.083% (Neb)) 2.5 mg Q6H RESP THERAPY PRN NEB SHORTNESS OF BREATH/WHEEZING; Start 12/19/18 at 00:30 Benzonatate (Tessalon) 100 mg BID PRN PO prn Last administered on 12/19/18at 20:22; Admin Dose 100 MG; Start 12/19/18 at 00:30 Budesonide (Pulmicort (Neb)) 0.5 mg BID RESP THERAPY INH Last administered on 12/23/18at 09:28; Admin Dose 0.5 MG; Start 12/19/18 at 09:00 Docusate Sodium (Colace) 100 mg BID PO Last administered on 12/23/18 08:24; Admin Dose 100 MG; Start 12/19/18 at 09:00 Enoxaparin Sodium (Lovenox) 40 mg DAILY SC Last administered on 12/23/18 08:29; Admin Dose 40 MG; Start 12/19/18 at 09:00 Guaifenesin (Robitussin Liquid Cup) 100 mg Q6H PRN PO COUGH Last administered on 12/23/18 09:51; Admin Dose 100 MG; Start 12/19/18 at 00:30 Acetaminophen/ Hydrocodone Bitart ([place] (5/325)) 1 tab Q6H PRN PO MODERATE PAIN LEVEL 4-6 Last administered on 12/20/18 07:29; Admin Dose 1 TAB; Start 12/19/18 at 00:30 Acetaminophen/ Hydrocodone Bitart ([place] (5/325)) 2 tab Q6H PRN PO MODERATE PAIN LEVEL 4-6 Last administered on 12/23/18 09:48; Admin Dose 2 TAB; Start 12/19/18 at 00:30 Albuterol/ Ipratropium (Duoneb) 3 ml Q4H RESP THERAPY INH Last administered on 12/23/18 12:21; Admin Dose 3 ML; Start 12/19/18 at 01:00 Montelukast Sodium (Singulair) 10 mg QHS PO Last administered on 12/22/18 20:42; Admin Dose 10 MG; Start 12/19/18 at 21:00 Nystatin (Nystatin Susp) 5 ml QID PO Last administered on 12/23/18 13:36; Admin Dose 5 ML; Start 12/19/18 at 09:00 Ondansetron HCl (Zofran Tab) 4 mg Q6H PRN PO NAUSEA AND/OR VOMITING Last administered on 12/19/18 20:22; Admin Dose 4 MG; Start 12/19/18 at 00:30 Pantoprazole (Protonix Tab) 40 mg DAILY@0600 PO Last administered on 12/23/18 06:50; Admin Dose 40 MG; Start 12/19/18 at 06:00 Prednisone (Prednisone) 40 mg DAILY PO Last administered on 12/23/18 08:24; Admin Dose 40 MG; Start 12/19/18 at 09:00 Tramadol HCl (Ultram) 50 mg Q6H PRN PO MODERATE PAIN LEVEL 4-6 Last administ ered on 12/23/18 03:16; Admin Dose 50 MG; Start 12/19/18 at 00:30 Lisinopril (Zestril) 20 mg BID PO Last administered on 12/22/18at 20:43; Admin Dose 20 MG; Start 12/19/18 at 09:00 Calcium Carbonate (Tums) 1,000 mg Q4H PRN PO HEARTBURN; Start 12/19/18 at 01:00 Hydroxyzine HCl (Atarax) 25 mg BID PRN PO ITCHING Last administered on 12/23/18 07:13; Admin Dose 25 MG; Start 12/19/18 at 00:35 Carisoprodol (Soma) 350 mg Q8H PRN PO PAIN Last administered on 12/23/18 08:26; Admin Dose 350 MG; Start 12/21/18 at 17:30 Furosemide (Lasix) 20 mg DAILY@0600 IV Last administered on 12/23/18at 06:51; Admin Dose 20 MG; Start 12/22/18 at 06:00 Diphenhydramine HCl (Benadryl) 25 mg Q6H PRN PO ITCHING; Start 12/23/18 at 13:30 Alprazolam (Xanax) 0.5 mg Q8 PRN PO ANXIETY; Start 12/23/18 at 14:00 Assessment/Plan Hospital Course (Demo Recall) IMP: 1. Acute decompensate RHF 2. [facility] RECS: 1. Await ECHO 2. Lasix 20 mg IV BID; continue until we see a bump in creatinine 3. BiPAP 158 4. Titrate O2 to SpO2 88-92% 5. Would avoid sedatives including benzodiazepines. 6. Consider pain management consult RONAK RUIZ MD, [facility] December 23, 2018 15:36
[2018-12-23] MEDS ORDERED: CEPASTAT LOZENGE MT PRN (18:00)
[2018-12-23 20:01] VITALS: BP 115/61; PULSE 83; RESP 18
[2018-12-23] MEDS: MONTELUKAST 10 MG TAB PO SCH (21:43)
[2018-12-24] MEDS: ALBUTEROL/IPRATROPIUM (NEB) 3 ML AMP INH SCH ×6 (00:04→20:51)
[2018-12-24 01:10] VITALS: BP 114/60; PULSE 91; RESP 20
[2018-12-24] MEDS: morphine 2 MG INJ IV PRN ×2 (02:49→08:39)
[2018-12-24] MEDS: HYDROCODONE/APAP (5/325) TAB PO PRN ×3 (04:50→16:52)
[2018-12-24 05:57] VITALS: BP_SYST 104; BP_SYST 110; BP_DIAS 67; BP_DIAS 87; PULSE 83
[2018-12-24] MEDS: PANTOPRAZOLE (EC) 40 MG TAB PO SCH (06:02)
[2018-12-24] MEDS: FUROSEMIDE 20 MG INJ IV SCH (06:03)
[2018-12-24 07:23] VITALS: BP_SYST 122; BP_SYST 124; BP_DIAS 75; PULSE 86; RESP 19
[2018-12-24] MEDS: predniSONE 20 MG TAB PO SCH (08:18)
[2018-12-24] MEDS: NYSTATIN SUSP 5 ML CUP PO SCH ×4 (08:18→21:16)
[2018-12-24] MEDS: CARISOPRODOL 350 MG TAB PO PRN ×2 (08:18→16:51)
[2018-12-24] MEDS: DOCUSATE SODIUM 100 MG CAP PO SCH ×2 (08:18→21:16)
[2018-12-24] MEDS: LISINOPRIL 20 MG TAB PO SCH ×2 (08:19→21:16)
[2018-12-24] MEDS: ENOXAPARIN 100 MG/ML SYG SC SCH (08:31)
[2018-12-24] MEDS: BUDESONIDE (NEB) 0.5MG/2ML AMP INH SCH ×2 (09:24→20:51)
--- NOTE | 2018-12-24 11:10 | PN ---
Date/Time of Note Date/Time of Note DATE: 12/24/18 TIME: 11:09 Assessment/Plan VTE Prophylaxis Risk score (from Nsg)>0 risk: 2 SCD applied (from Ns): Yes Pharmacological prophylaxis: NA/contraindicated Pharm contraindication: low risk/ambulating Lines/Catheters IV Catheter Type (from Nrsg): Peripheral IV Urinary Cath still in place: No Assessment/Plan Assessment/Plan Hospital Course 1. Low back pain on the left with the CT findings of possible T12 fracture. at OSH now with spinal x-rays here patient had T6 and T7 compression fractures 2. Shortness of breath likely secondary to chronic obstructive pulmonary disease exacerbation. 3. History of chronic hypoxia on home oxygen. 4. Morbid obesity. 5. History of chronic obstructive pulmonary disease. 6. Hyperlipidemia. 7. History of migraine. Assessment/Plan -Was not able to tolerate MRI scan procedure again, despite increased dose of morphine, per pt can not lay down - Dr basilio consult with Ortho -Pain medicine to IV Dilaudid and p.o. [place] every 4 hours -Avoid benzos per pulmonary - benadryl prn - continue the patient on steroids, nebs round the clock. -DVT proph. lovenox -GI proph. protonix Patient will likely need a SNF Result Diagram: 12/22/18 0615 12/24/18 0438 Results 24hrs Laboratory Tests Test 12/24/18 04:38 Sodium Level 142 Potassium Level 3.9 Chloride Level 105 Carbon Dioxide Level 32 H Anion Gap 5 Blood Urea Nitrogen 30 #H Creatinine 0.55 Est Glomerular Filtrat Rate mL/min > 60 Glucose Level 89 Calcium Level 9.1 Subjective 24 Hr Interval Summary Free Text/Dictation Patient is not having excruciating pain of the lower back Exam/Review of Systems Exam Vitals Vital Signs Date Temp Pulse Resp B/P (MAP) Pulse Ox O2 O2 Flow FiO2 Time Delivery Rate 12/24/18 92 20 93 Nasal 4.0 09:25 Cannula 12/24/18 98.0 124/75 07:23 (91) 12/24/18 00:07 Intake and Output 12/23/18 12/23/18 12/24/18 1515:00 23:00 07:00 IntakeIntake Total 400 ml 600 ml 400 ml OutputOutput Total 500 ml 200 ml BalanceBalance -100 ml 400 ml 400 ml Exam Exam OBESE Constitutional: alert, oriented Head: normocephalic Respiratory: c, diminished breath sounds, Cardiovascular: regular rate and rhythm Gastrointestinal: soft Musculoskeletal: muscle weakness Skin: ecchymosis ttp upper back Results Results 24hrs Laboratory Tests Test 12/24/18 04:38 Sodium Level 142 Potassium Level 3.9 Chloride Level 105 Carbon Dioxide Level 32 H Anion Gap 5 Blood Urea Nitrogen 30 #H Creatinine 0.55 Est Glomerular Filtrat Rate mL/min > 60 Glucose Level 89 Calcium Level 9.1 Medications Medication Current Medications Acetaminophen (Tylenol Tab) 650 mg Q4 PRN PO prn; Start 12/19/18 at 00:30 Albuterol (Proventil 0.083% (Neb)) 2.5 mg Q6H RESP THERAPY PRN NEB SHORTNESS OF BREATH/WHEEZING Last administered on 12/23/18 18:15; Admin Dose 2.5 MG; Start 12/19/18 at 00:30 Benzonatate (Tessalon) 100 mg BID PRN PO prn Last administered on 12/19/18 20:22; Admin Dose 100 MG; Start 12/19/18 at 00:30 Budesonide (Pulmicort (Neb)) 0.5 mg BID RESP THERAPY INH Last administered on 12/24/18 09:24; Admin Dose 0.5 MG; Start 12/19/18 at 09:00 Docusate Sodium (Colace) 100 mg BID PO Last administered on 12/24/18 08:18; Admin Dose 100 MG; Start 12/19/18 at 09:00 Enoxaparin Sodium (Lovenox) 40 mg DAILY SC Last administered on 12/24/18 08:31; Admin Dose 40 MG; Start 12/19/18 at 09:00 Guaifenesin (Robitussin Liquid Cup) 100 mg Q6H PRN PO COUGH Last administered on 12/23/18 09:51; Admin Dose 100 MG; Start 12/19/18 at 00:30 Acetaminophen/ Hydrocodone Bitart ([place] (5/325)) 1 tab Q6H PRN PO MODERATE PAIN LEVEL 4-6 Last administered on 12/20/18 07:29; Admin Dose 1 TAB; Start 12/19/18 at 00:30 Acetaminophen/ Hydrocodone Bitart ([place] (5/325)) 2 tab Q6H PRN PO MODERATE PAIN LEVEL 4-6 Last administered on 12/24/18 10:50; Admin Dose 2 TAB; Start 12/19/18 at 00:30 Albuterol/ Ipratropium (Duoneb) 3 ml Q4H RESP THERAPY INH Last administered on 12/24/18 09:24; Admin Dose 3 ML; Start 12/19/18 at 01:00 Montelukast Sodium (Singulair) 10 mg QHS PO Last administered on 12/23/18 21:43; Admin Dose 10 MG; Start 12/19/18 at 21:00 Nystatin (Nystatin Susp) 5 ml QID PO Last administered on 12/24/18 08:18; Admin Dose 5 ML; Start 12/19/18 at 09:00 Ondansetron HCl (Zofran Tab) 4 mg Q6H PRN PO NAUSEA AND/OR VOMITING Last administered on 12/19/18 20:22; Admin Dose 4 MG; Start 12/19/18 at 00:30 Pantoprazole (Protonix Tab) 40 mg DAILY@0600 PO Last administered on 12/24/18 06:02; Admin Dose 40 MG; Start 12/19/18 at 06:00 Prednisone (Prednisone) 40 mg DAILY PO Last administered on 12/24/18 08:18; Admin Dose 40 MG; Start 12/19/18 at 09:00 Tramadol HCl (Ultram) 50 mg Q6H PRN PO MODERATE PAIN LEVEL 4-6 Last administered on 12/23/18 03:16; Admin Dose 50 MG; Start 12/19/18 at 00:30 Lisinopril (Zestril) 20 mg BID PO Last administered on 12/24/18 08:19; Admin Dose 20 MG; Start 12/19/18 at 09:00 Calcium Carbonate (Tums) 1,000 mg Q4H PRN PO HEARTBURN; Start 12/19/18 at 01:00 Hydroxyzine HCl (Atarax) 25 mg BID PRN PO ITCHING Last administered on 12/23/18 07:13; Admin Dose 25 MG; Start 12/19/18 at 00:35 Carisoprodol (Soma) 350 mg Q8H PRN PO PAIN Last administered on 12/24/18 08:18; Admin Dose 350 MG; Start 12/21/18 at 17:30 Furosemide (Lasix) 20 mg DAILY@0600 IV Last administered on 12/24/18at 06:03; Admin Dose 20 MG; Start 12/22/18 at 06:00 Diphenhydramine HCl (Benadryl) 25 mg Q6H PRN PO ITCHING; Start 12/23/18 at 13:30 Alprazolam (Xanax) 0.5 mg Q8 PRN PO ANXIETY; Start 12/23/18 at 14:00 Phenol (Cepastat Lozenge) 1 lozenge Q1H PRN MT COUGH Last administered on 12/23/18at 17:51; Admin Dose 1 LOZENGE; Start 12/23/18 at 18:00 Hydromorphone HCl (Dilaudid) 1 mg Q4H PRN IV SEVERE PAIN LEVEL 7-10; Start 12/24/18 at 11:00 AMERICO MCCLAIN MD December 24, 2018 11:10
[2018-12-24] MEDS: HYDROmorphONE 1 MG/ML SYG IV PRN ×4 (11:16→23:07)
[2018-12-24 15:01] VITALS: BP 105/70; PULSE 109; RESP 18
[2018-12-24] MEDS: GUAIFENESIN 20 MG/ML 5ML CUP PO PRN (15:14)
--- NOTE | 2018-12-24 15:18 | CONS ---
Consult Date/Type/Reason Admit Date/Time December 18, 2018 at 21:31 Initial Consult Date 12/21/18 Type of Consult Pulmonary Date/Time of Note DATE: 12/24/18 TIME: 15:16 Subjective Patient comfortable this morning no respiratory distress Objective Vital Signs Date Temp Pulse Resp B/P (MAP) Pulse Ox O2 O2 Flow FiO2 Time Delivery Rate 12/24/18 98.6 109 18 105/70 98 Room Air 15:01 (82) 12/24/18 3.0 12:19 12/24/18 00:07 Intake and Output 12/23/18 12/23/18 12/24/18 1414:59 22:59 06:59 IntakeIntake Total 400 ml 600 ml 400 ml OutputOutput Total 500 ml 200 ml BalanceBalance -100 ml 400 ml 400 ml Exam GENERAL: Morbidly obese young lady VITAL SIGNS: per chart NECK: Supple. No JVD or lymphadenopathy. CARDIAC EXAM: S1, S2. No added sounds or murmurs. CHEST: Diminished air entry both bases ABDOMEN: Soft, nontender. No guarding or rebound. EXTREMITIES: No cyanosis, clubbing or edema. NEUROLOGIC: Generalized weakness. No focal deficits. Results/Medications Result Diagram: 12/22/18 0615 12/24/18 0438 Results 24 hrs Laboratory Tests Test 12/24/18 04:38 Sodium Level 142 Potassium Level 3.9 Chloride Level 105 Carbon Dioxide Level 32 H Anion Gap 5 Blood Urea Nitrogen 30 #H Creatinine 0.55 Est Glomerular Filtrat Rate mL/min > 60 Glucose Level 89 Calcium Level 9.1 Medications Current Medications Acetaminophen (Tylenol Tab) 650 mg Q4 PRN PO prn; Start 12/19/18 at 00:30 Albuterol (Proventil 0.083% (Neb)) 2.5 mg Q6H RESP THERAPY PRN NEB SHORTNESS OF BREATH/WHEEZING Last administered on 12/23/18at 18:15; Admin Dose 2.5 MG; Start 12/19/18 at 00:30 Benzonatate (Tessalon) 100 mg BID PRN PO prn Last administered on 12/19/18at 20:22; Admin Dose 100 MG; Start 12/19/18 at 00:30 Budesonide (Pulmicort (Neb)) 0.5 mg BID RESP THERAPY INH Last administered on 12/24/18at 09:24; Admin Dose 0.5 MG; Start 12/19/18 at 09:00 Docusate Sodium (Colace) 100 mg BID PO Last administered on 12/24/18 08:18; Admin Dose 100 MG; Start 12/19/18 at 09:00 Enoxaparin Sodium (Lovenox) 40 mg DAILY SC Last administered on 12/24/18 08:31; Admin Dose 40 MG; Start 12/19/18 at 09:00 Guaifenesin (Robitussin Liquid Cup) 100 mg Q6H PRN PO COUGH Last administered on 12/24/18 15:14; Admin Dose 100 MG; Start 12/19/18 at 00:30 Acetaminophen/ Hydrocodone Bitart ([place] (5/325)) 1 tab Q6H PRN PO MODERATE PAIN LEVEL 4-6 Last administered on 12/20/18 07:29; Admin Dose 1 TAB; Start 12/19/18 at 00:30 Albuterol/ Ipratropium (Duoneb) 3 ml Q4H RESP THERAPY INH Last administered on 12/24/18 12:19; Admin Dose 3 ML; Start 12/19/18 at 01:00 Montelukast Sodium (Singulair) 10 mg QHS PO Last administered on 12/23/18 21:43; Admin Dose 10 MG; Start 12/19/18 at 21:00 Nystatin (Nystatin Susp) 5 ml QID PO Last administered on 12/24/18 15:05; Admin Dose 5 ML; Start 12/19/18 at 09:00 Ondansetron HCl (Zofran Tab) 4 mg Q6H PRN PO NAUSEA AND/OR VOMITING Last admin istered on 12/19/18 20:22; Admin Dose 4 MG; Start 12/19/18 at 00:30 Pantoprazole (Protonix Tab) 40 mg DAILY@0600 PO Last administered on 12/24/18 06:02; Admin Dose 40 MG; Start 12/19/18 at 06:00 Prednisone (Prednisone) 40 mg DAILY PO Last administered on 12/24/18 08:18; Admin Dose 40 MG; Start 12/19/18 at 09:00 Tramadol HCl (Ultram) 50 mg Q6H PRN PO MODERATE PAIN LEVEL 4-6 Last administered on 12/23/18 03:16; Admin Dose 50 MG; Start 12/19/18 at 00:30 Lisinopril (Zestril) 20 mg BID PO Last administered on 12/24/18 08:19; Admin Dose 20 MG; Start 12/19/18 at 09:00 Calcium Carbonate (Tums) 1,000 mg Q4H PRN PO HEARTBURN; Start 12/19/18 at 01:00 Hydroxyzine HCl (Atarax) 25 mg BID PRN PO ITCHING Last administered on 12/23/18 07:13; Admin Dose 25 MG; Start 12/19/18 at 00:35 Carisoprodol (Soma) 350 mg Q8H PRN PO PAIN Last administered on 12/24/18 08:18; Admin Dose 350 MG; Start 12/21/18 at 17:30 Furosemide (Lasix) 20 mg DAILY@0600 IV Last administered on 12/24/18 06:03; Admin Dose 20 MG; Start 12/22/18 at 06:00 Diphenhydramine HCl (Benadryl) 25 mg Q6H PRN PO ITCHING; Start 12/23/18 at 13:30 Phenol (Cepastat Lozenge) 1 lozenge Q1H PRN MT COUGH Last administered on 12/23/18 17:51; Admin Dose 1 LOZENGE; Start 12/23/18 at 18:00 Hydromorphone HCl (Dilaudid) 1 mg Q4H PRN IV SEVERE PAIN LEVEL 7-10 Last administered on 12/24/18 15:09; Admin Dose 1 MG; Start 12/24/18 at 11:00 Acetaminophen/ Hydrocodone Bitart ([place] (5/325)) 2 tab Q4H PRN PO MODERATE PAIN LEVEL 4-6; Start 12/24/18 at 11:30 Assessment/Plan Hospital Course (Demo Recall) IMP: 1. Acute decompensate RHF 2. [facility] RECS: 1. Consider cardiology consult 2. Lasix 20 mg IV BID; continue until we see a bump in creatinine 3. BiPAP 8 4. Titrate O2 to SpO2 88-92% 5. Would avoid sedatives including benzodiazepines. 6. Consider pain management consult Encourage out of bed. RONAK RUIZ MD, FCCP December 24, 2018 15:18
[2018-12-24 19:59] VITALS: BP 125/66; PULSE 95; RESP 18
[2018-12-24] MEDS: MONTELUKAST 10 MG TAB PO SCH (21:16)
[2018-12-25] MEDS: ALBUTEROL/IPRATROPIUM (NEB) 3 ML AMP INH SCH ×6 (00:49→20:44)
[2018-12-25] MEDS: HYDROCODONE/APAP (5/325) TAB PO PRN ×5 (01:01→21:12)
[2018-12-25] MEDS: HYDROmorphONE 1 MG/ML SYG IV PRN ×6 (03:05→23:20)
[2018-12-25 04:59] VITALS: BP 109/59; RESP 16
[2018-12-25] MEDS: PANTOPRAZOLE (EC) 40 MG TAB PO SCH (06:00)
[2018-12-25] MEDS: FUROSEMIDE 20 MG INJ IV SCH (06:01)
[2018-12-25 07:29] VITALS: BP 116/62; PULSE 82; RESP 18
[2018-12-25] MEDS: BUDESONIDE (NEB) 0.5MG/2ML AMP INH SCH ×2 (08:23→20:46)
[2018-12-25] MEDS: predniSONE 20 MG TAB PO SCH (09:18)
[2018-12-25] MEDS: LISINOPRIL 20 MG TAB PO SCH ×2 (09:18→21:12)
[2018-12-25] MEDS: NYSTATIN SUSP 5 ML CUP PO SCH ×4 (09:18→21:12)
[2018-12-25] MEDS: DOCUSATE SODIUM 100 MG CAP PO SCH ×2 (09:18→21:12)
[2018-12-25] MEDS: ENOXAPARIN 100 MG/ML SYG SC SCH (09:20)
--- NOTE | 2018-12-25 11:33 | PN ---
Date/Time of Note Date/Time of Note DATE: 12/25/18 TIME: 11:31 Assessment/Plan VTE Prophylaxis Risk score (from Nsg)>0 risk: 3 SCD applied (from Ns): No SCD contraindicated: low risk/ambulating Pharmacological prophylaxis: NA/contraindicated Pharm contraindication: low risk/ambulating Lines/Catheters IV Catheter Type (from Nrsg): Saline Lock Urinary Cath still in place: No Assessment/Plan Assessment/Plan Hospital Course 1. Low back pain on the left with the CT findings of possible T12 fracture. at OSH now with spinal x-rays here patient had T6 and T7 compression fractures 2. Shortness of breath likely secondary to chronic obstructive pulmonary disease exacerbation. 3. History of chronic hypoxia on home oxygen. 4. Morbid obesity. 5. History of chronic obstructive pulmonary disease. 6. Hyperlipidemia. 7. History of migraine. Assessment/Plan -Was not able to tolerate MRI scan procedure again, despite increased dose of morphine, per pt can not lay down - Dr basilio consult with Ortho pending - cw IV Dilaudid and p.o. [place] every 4 hours -Avoid benzos per pulmonary - benadryl prn - continue the patient on steroids, nebs round the clock. dec prednsione, cw iv lasix 20 - ECHO Pending -DVT proph. lovenox -GI proph. protonix PT eval if cleared by ortho Result Diagram: 12/22/18 0615 12/24/18 0438 Subjective 24 Hr Interval Summary Free Text/Dictation Pain is better controlled now on Dilaudid Exam/Review of Systems Exam Vitals Vital Signs Date Temp Pulse Resp B/P (MAP) Pulse Ox O2 O2 Flow FiO2 Time Delivery Rate 12/25/18 88 24 92 Nasal 4.0 08:28 Cannula 12/25/18 98.2 116/62 07:29 (80) 12/24/18 00:07 Intake and Output 12/24/18 12/24/18 12/25/18 1414:59 22:59 06:59 IntakeIntake Total 1000 ml BalanceBalance 1000 ml Exam Constitutional: alert, oriented Head: normocephalic Respiratory: impProved aeration Cardiovascular: regular rate and rhythm Gastrointestinal: soft Musculoskeletal: muscle weakness Skin: ecchymosis ttp upper back Medications Medication Current Medications Acetaminophen (Tylenol Tab) 650 mg Q4 PRN PO prn; Start 12/19/18 at 00:30 Albuterol (Proventil 0.083% (Neb)) 2.5 mg Q6H RESP THERAPY PRN NEB SHORTNESS OF BREATH/WHEEZING Last administered on 12/23/18 18:15; Admin Dose 2.5 MG; Start 12/19/18 at 00:30 Benzonatate (Tessalon) 100 mg BID PRN PO prn Last administered on 12/19/18 20:22; Admin Dose 100 MG; Start 12/19/18 at 00:30 Budesonide (Pulmicort (Neb)) 0.5 mg BID RESP THERAPY INH Last administered on 12/25/18 08:23; Admin Dose 0.5 MG; Start 12/19/18 at 09:00 Docusate Sodium (Colace) 100 mg BID PO Last administered on 12/25/18 09:18; Admin Dose 100 MG; Start 12/19/18 at 09:00 Enoxaparin Sodium (Lovenox) 40 mg DAILY SC Last administered on 12/25/18 09:20; Admin Dose 40 MG; Start 12/19/18 at 09:00 Guaifenesin (Robitussin Liquid Cup) 100 mg Q6H PRN PO COUGH Last administered on 12/24/18 15:14; Admin Dose 100 MG; Start 12/19/18 at 00:30 Acetaminophen/ Hydrocodone Bitart ([place] (5/325)) 1 tab Q6H PRN PO MODERATE PAIN LEVEL 4-6 Last administered on 12/20/18 07:29; Admin Dose 1 TAB; Start 12/19/18 at 00:30 Albuterol/ Ipratropium (Duoneb) 3 ml Q4H RESP THERAPY INH Last administered on 12/25/18 08:23; Admin Dose 3 ML; Start 12/19/18 at 01:00 Montelukast Sodium (Singulair) 10 mg QHS PO Last administered on 12/24/18 21:16; Admin Dose 10 MG; Start 12/19/18 at 21:00 Nystatin (Nystatin Susp) 5 ml QID PO Last administered on 12/25/18 09:18; Admin Dose 5 ML; Start 12/19/18 at 09:00 Ondansetron HCl (Zofran Tab) 4 mg Q6H PRN PO NAUSEA AND/OR VOMITING Last administered on 12/19/18 20:22; Admin Dose 4 MG; Start 12/19/18 at 00:30 Pantoprazole (Protonix Tab) 40 mg DAILY@0600 PO Last administered on 12/25/18 06:00; Admin Dose 40 MG; Start 12/19/18 at 06:00 Prednisone (Prednisone) 40 mg DAILY PO Last administered on 12/25/18 09:18; Admin Dose 40 MG; Start 12/19/18 at 09:00 Tramadol HCl (Ultram) 50 mg Q6H PRN PO MODERATE PAIN LEVEL 4-6 Last administered on 12/23/18 03:16; Admin Dose 50 MG; Start 12/19/18 at 00:30 Lisinopril (Zestril) 20 mg BID PO Last administered on 12/25/18 09:18; Admin Dose 20 MG; Start 12/19/18 at 09:00 Calcium Carbonate (Tums) 1,000 mg Q4H PRN PO HEARTBURN; Start 12/19/18 at 01:00 Hydroxyzine HCl (Atarax) 25 mg BID PRN PO ITCHING Last administered on 12/23/18 07:13; Admin Dose 25 MG; Start 12/19/18 at 00:35 Carisoprodol (Soma) 350 mg Q8H PRN PO PAIN Last administered on 12/24/18 16:51; Admin Dose 350 MG; Start 12/21/18 at 17:30 Furosemide (Lasix) 20 mg DAILY@0600 IV Last administered on 12/25/18 06:01; Admin Dose 20 MG; Start 12/22/18 at 06:00 Diphenhydramine HCl (Benadryl) 25 mg Q6H PRN PO ITCHING; Start 12/23/18 at 13:30 Phenol (Cepastat Lozenge) 1 lozenge Q1H PRN MT COUGH Last administered on 12/23/18 17:51; Admin Dose 1 LOZENGE; Start 12/23/18 at 18:00 Hydromorphone HCl (Dilaudid) 1 mg Q4H PRN IV SEVERE PAIN LEVEL 7-10 Last administered on 12/25/18 07:26; Admin Dose 1 MG; Start 12/24/18 at 11:00 Acetaminophen/ Hydrocodone Bitart ([place] (5/)) 2 tab Q4H PRN PO MODERATE PAIN LEVEL 4-6 Last administered on 12/25/18at 09:18; Admin Dose 2 TAB; Start 12/24/18 at 11:30 AMERICO MCCLAIN MD December 25, 2018 11:33
[2018-12-25] MEDS: CARISOPRODOL 350 MG TAB PO PRN (16:17)
[2018-12-25] MEDS ORDERED: HYDROmorphONE 1 MG/ML SYG IV ONE (17:30)
[2018-12-25 19:53] VITALS: BP 115/59; RESP 17
[2018-12-25] MEDS: MONTELUKAST 10 MG TAB PO SCH (21:12)
[2018-12-26] MEDS: ALBUTEROL/IPRATROPIUM (NEB) 3 ML AMP INH SCH ×6 (00:26→20:45)
[2018-12-26 01:26] VITALS: BP 118/68; RESP 20
[2018-12-26] MEDS: HYDROCODONE/APAP (5/325) TAB PO PRN ×6 (01:30→22:05)
[2018-12-26] MEDS: HYDROmorphONE 1 MG/ML SYG IV PRN ×5 (03:01→19:47)
[2018-12-26] MEDS: PANTOPRAZOLE (EC) 40 MG TAB PO SCH (05:43)
[2018-12-26] MEDS: FUROSEMIDE 20 MG INJ IV SCH (05:48)
[2018-12-26 07:24] VITALS: BP 92/46; PULSE 86; RESP 18
[2018-12-26] MEDS: LISINOPRIL 20 MG TAB PO SCH ×2 (09:00→20:55)
[2018-12-26] MEDS: NYSTATIN SUSP 5 ML CUP PO SCH ×4 (09:20→20:54)
[2018-12-26] MEDS: DOCUSATE SODIUM 100 MG CAP PO SCH ×2 (09:20→20:54)
[2018-12-26] MEDS: predniSONE 10 MG TAB PO SCH (09:20)
[2018-12-26] MEDS: ENOXAPARIN 100 MG/ML SYG SC SCH (09:20)
--- NOTE | 2018-12-26 11:58 | PN ---
Date/Time of Note Date/Time of Note DATE: 12/26/18 TIME: 11:58 Assessment/Plan VTE Prophylaxis Risk score (from Nsg)>0 risk: 4 SCD applied (from Ns): No SCD contraindicated: low risk/ambulating Pharmacological prophylaxis: NA/contraindicated Pharm contraindication: low risk/ambulating Lines/Catheters IV Catheter Type (from Nrsg): Sal[place] Lock Urinary Cath still in place: No Assessment/Plan Hospital Course 1 Low back pain on the left with the CT findings of possible T12 fracture. at OSH now with spinal x-rays here patient had T6 and T7 compression fractures evident also on the CT of the thoracic spine>? No history of any trauma, path ological ? Osteoporosis She has been on chronic steroids because of COPD 2. Shortness of breath likely secondary to chronic obstructive pulmonary disease exacerbation. 3. History of chronic hypoxia on home oxygen. 4. Morbid obesity. 5. History of chronic obstructive pulmonary disease. 6. Hyperlipidemia. 7. History of migraine. Assessment/Plan -Was not able to tolerate MRI scan procedure again, despite increased dose of morphine, per pt can not lay down - Dr basilio consult with Ortho> recommended to get a bone scan, neurosurgery consult -Pain medicine to IV Dilaudid and p.o. [place] every 4 hours -Avoid benzos per pulmonary - benadryl prn - PT eval -dec steroids, nebs round the clock. -DVT proph. lovenox -GI proph. protonix Pt will need SNIF placement Result Diagram: 12/26/18 0457 12/26/18 0457 Results 24hrs Laboratory Tests Test 12/26/18 04:57 White Blood Count 9.3 Red Blood Count 4.46 Hemoglobin 14.3 Hematocrit 44.9 Mean Corpuscular Volume 100.7 Mean Corpuscular Hemoglobin 32.1 Mean Corpuscular Hemoglobin Concent 31.8 L Red Cell Distribution Width 14.5 Platelet Count 250 # Mean Platelet Volume 9.5 Immature Granulocytes % 1.000 H Neutrophils % 62.4 Lymphocytes % 24.6 Monocytes % 11.4 H Eosinophils % 0.4 Basophils % 0.2 Nucleated Red Blood Cells % 0.0 Immature Granulocytes # 0.090 H Neutrophils # 5.8 Lymphocytes # 2.3 Monocytes # 1.1 H Eosinophils # 0.0 Basophils # 0.0 Nucleated Red Blood Cells # 0.0 Sodium Level 140 Potassium Level 4.0 Chloride Level 104 Carbon Dioxide Level 32 H Anion Gap 4 L Blood Urea Nitrogen 19 Creatinine 0.49 Est Glomerular Filtrat Rate mL/min > 60 Glucose Level 109 Calcium Level 9.2 Phosphorus Level 3.7 Magnesium Level 1.9 Subjective 24 Hr Interval Summary Free Text/Dictation CT thoracic spine results reviewed Exam/Review of Systems Exam Vitals Vital Signs Date Temp Pulse Resp B/P (MAP) Pulse Ox O2 O2 Flow FiO2 Time Delivery Rate 12/26/18 98.2 86 18 92/46 (61) 92 Room Air 07:24 12/26/18 3.0 04:49 12/24/18 00:07 Intake and Output 12/25/18 12/25/18 12/26/18 1515:00 23:00 07:00 IntakeIntake Total 300 ml 820 ml 820 ml OutputOutput Total 3 ml 400 ml BalanceBalance 297 ml 420 ml 820 ml Exam Exam Constitutional: alert, oriented Head: normocephalic Respiratory: impProved aeration Cardiovascular: regular rate and rhythm Gastrointestinal: soft Musculoskeletal: muscle weakness Skin: ecchymosis ttp upper back Results Results 24hrs Laboratory Tests Test 12/26/18 04:57 White Blood Count 9.3 Red Blood Count 4.46 Hemoglobin 14.3 Hematocrit 44.9 Mean Corpuscular Volume 100.7 Mean Corpuscular Hemoglobin 32.1 Mean Corpuscular Hemoglobin Concent 31.8 L Red Cell Distribution Width 14.5 Platelet Count 250 # Mean Platelet Volume 9.5 Immature Granulocytes % 1.000 H Neutrophils % 62.4 Lymphocytes % 24.6 Monocytes % 11.4 H Eosinophils % 0.4 Basophils % 0.2 Nucleated Red Blood Cells % 0.0 Immature Granulocytes # 0.090 H Neutrophils # 5.8 Lymphocytes # 2.3 Monocytes # 1.1 H Eosinophils # 0.0 Basophils # 0.0 Nucleated Red Blood Cells # 0.0 Sodium Level 140 Potassium Level 4.0 Chloride Level 104 Carbon Dioxide Level 32 H Anion Gap 4 L Blood Urea Nitrogen 19 Creatinine 0.49 Est Glomerular Filtrat Rate mL/min > 60 Glucose Level 109 Calcium Level 9.2 Phosphorus Level 3.7 Magnesium Level 1.9 Medications Medication Current Medications Acetaminophen (Tylenol Tab) 650 mg Q4 PRN PO prn; Start 12/19/18 at 00:30 Albuterol (Proventil 0.083% (Neb)) 2.5 mg Q6H RESP THERAPY PRN NEB SHORTNESS OF BREATH/WHEEZING Last administered on 12/23/18 18:15; Admin Dose 2.5 MG; Start 12/19/18 at 00:30 Benzonatate (Tessalon) 100 mg BID PRN PO prn Last administered on 12/19/18 20:22; Admin Dose 100 MG; Start 12/19/18 at 00:30 Budesonide (Pulmicort (Neb)) 0.5 mg BID RESP THERAPY INH Last administered on 12/25/18 20:46; Admin Dose 0.5 MG; Start 12/19/18 at 09:00 Docusate Sodium (Colace) 100 mg BID PO Last administered on 12/26/18 09:20; Admin Dose 100 MG; Start 12/19/18 at 09:00 Enoxaparin Sodium (Lovenox) 40 mg DAILY SC Last administered on 12/26/18 09:20; Admin Dose 40 MG; Start 12/19/18 at 09:00 Guaifenesin (Robitussin Liquid Cup) 100 mg Q6H PRN PO COUGH Last administered on 12/24/18 15:14; Admin Dose 100 MG; Start 12/19/18 at 00:30 Acetaminophen/ Hydrocodone Bitart ([place] (5/325)) 1 tab Q6H PRN PO MODERATE PAIN LEVEL 4-6 Last administered on 12/20/18 07:29; Admin Dose 1 TAB; Start 12/19/18 at 00:30 Albuterol/ Ipratropium (Duoneb) 3 ml Q4H RESP THERAPY INH Last administered on 12/26/18 04:49; Admin Dose 3 ML; Start 12/19/18 at 01:00 Montelukast Sodium (Singulair) 10 mg QHS PO Last administered on 12/25/18 21:12; Admin Dose 10 MG; Start 12/19/18 at 21:00 Nystatin (Nystatin Susp) 5 ml QID PO Last administered on 12/26/18 09:20; Admin Dose 5 ML; Start 12/19/18 at 09:00 Ondansetron HCl (Zofran Tab) 4 mg Q6H PRN PO NAUSEA AND/OR VOMITING Last administered on 12/19/18 20:22; Admin Dose 4 MG; Start 12/19/18 at 00:30 Pantoprazole (Protonix Tab) 40 mg DAILY@0600 PO Last administered on 12/26/18 05:43; Admin Dose 40 MG; Start 12/19/18 at 06:00 Tramadol HCl (Ultram) 50 mg Q6H PRN PO MODERATE PAIN LEVEL 4-6 Last administered on 12/23/18 03:16; Admin Dose 50 MG; Start 12/19/18 at 00:30 Lisinopril (Zestril) 20 mg BID PO Last administered on 12/25/18 21:12; Admin Dose 20 MG; Start 12/19/18 at 09:00 Calcium Carbonate (Tums) 1,000 mg Q4H PRN PO HEARTBURN; Start 12/19/18 at 01:00 Hydroxyzine HCl (Atarax) 25 mg BID PRN PO ITCHING Last administered on 12/23/18 07:13; Admin Dose 25 MG; Start 12/19/18 at 00:35 Carisoprodol (Soma) 350 mg Q8H PRN PO PAIN Last administered on 12/25/18 16:17; Admin Dose 350 MG; Start 12/21/18 at 17:30 Furosemide (Lasix) 20 mg DAILY@0600 IV Last administered on 12/26/18 05:48; Admin Dose 20 MG; Start 12/22/18 at 06:00 Diphenhydramine HCl (Benadryl) 25 mg Q6H PRN PO ITCHING; Start 12/23/18 at 13:30 Phenol (Cepastat Lozenge) 1 lozenge Q1H PRN MT COUGH Last administered on 12/23/18 17:51; Admin Dose 1 LOZENGE; Start 12/23/18 at 18:00 Hydromorphone HCl (Dilaudid) 1 mg Q4H PRN IV SEVERE PAIN LEVEL 7-10 Last administered on 12/26/18 10:55; Admin Dose 1 MG; Start 12/24/18 at 11:00 Acetaminophen/ Hydrocodone Bitart ([place] (5/325)) 2 tab Q4H PRN PO MODERATE PAIN LEVEL 4-6 Last administered on 12/26/18 09:33; Admin Dose 2 TAB; Start 12/24/18 at 11:30 Prednisone (Prednisone) 30 mg DAILY PO Last administered on 12/26/18at 09:20; Admin Dose 30 MG; Start 12/26/18 at 09:00 AMERICO MCCLAIN MD December 26, 2018 11:58
[2018-12-26 14:00] VITALS: BP 114/54; PULSE 84; RESP 18
[2018-12-26] MEDS: BUDESONIDE (NEB) 0.5MG/2ML AMP INH SCH ×2 (14:37→20:45)
[2018-12-26] MEDS: CARISOPRODOL 350 MG TAB PO PRN (16:46)
[2018-12-26 20:22] VITALS: BP 132/63; PULSE 80; RESP 17
[2018-12-26] MEDS: MONTELUKAST 10 MG TAB PO SCH (20:54)
--- NOTE | 2018-12-26 22:21 | PN ---
DATE: 12/26/2018 CT scan of the T-spine shows compression fracture of T6 which seems to be not acute and T7 which coul d be acute. There was minimal retropulsion in the area of the compression fracture. There were no r ib fractures on the left side at the same level. Whether the compression fracture at the level of T7 could be the reason for acute pain over the paravertebral area on the left side is not clear. Wheth er any brace immobilization could be of any help controlling the pain is questionable. Dictated By: IAN NOVAK/ED Conf#: [id number] DID#: [id number]
--- NOTE | 2018-12-26 22:54 | CONS ---
DATE OF ADMISSION: 12/18/2018 DATE OF CONSULTATION: 12/24/2018 HISTORY OF PRESENT ILLNESS: The patient is a 53-year-old female with a known history of COPD and sle ep apnea and asthma, who was transferred in from [facility] on 12/18/2018 because of the sheila rtness of breath along with the pain involving upper back. She is also known to have hypertension an d migraine. She obviously went to [facility] because of the shortness of breath, which star mayank on 12/14/2018. She was also having an upper back pain with sometimes electric shock-like exacerb ation of the pain according to the patient. She denies any trauma; however, she obviously has been o n steroids for her pulmonary problems. PHYSICAL EXAMINATION: My examination revealed a 53-year-old somewhat obese female who was complainin g of pain over the upper back, more involving the right paravertebral area around the level of midtho racic spine with an area of tenderness on palpation. There was no obvious numbness in the dermatome of the thoracic spine. Even though she could not lie down on her back because of the pain, she seems to be able to sit up and move without any difficulties. There were no signs of lumbosacral radiculo fabienne such as motor weakness or sensory changes in the distribution of the lumbosacral nerve. Straig ht leg raising was not changing the character of her pain. The CT scan and the MRI scan transferred in from the [facility] did not reveal any obvious d egenerative changes or fractures. The x-rays of the T-spine obtained in [facility] shows compression fractures at 2 levels, mild at the level of T6 and moderate at the level of T7. DIAGNOSTIC IMPRESSION: 1. Area of tenderness over the left paravertebral area at the upper back around the level of T7 with the palpable local tenderness. 2. Compression fracture of T6 and T7 according to x-rays of T-spine. TREATMENT PLAN: 1. CT scan of the T-spine and this has been ordered. 2. Brace immobilization of the area of spine for compression fracture involving the level at the T6 and T7 may not be of help. 3. Consider a possible trial of trigger point injection of the left paravertebral area of the T-spin e if the findings in the CT scan of the T-spine are not acute or impressive. Dictated By: IAN LANDAVERDE MD IK/NTS Conf#: [id number] DID#: [id number] CC: LOUIS LOPEZ MD;*EndCC*
[2018-12-27] MEDS: HYDROmorphONE 1 MG/ML SYG IV PRN ×6 (00:07→20:52)
[2018-12-27] MEDS: ALBUTEROL/IPRATROPIUM (NEB) 3 ML AMP INH SCH ×6 (01:31→20:00)
[2018-12-27 01:38] VITALS: BP 118/58; PULSE 88; RESP 18
[2018-12-27] MEDS: HYDROCODONE/APAP (5/325) TAB PO PRN ×6 (02:35→22:49)
[2018-12-27] MEDS: PANTOPRAZOLE (EC) 40 MG TAB PO SCH (06:01)
[2018-12-27 06:02] VITALS: BP 115/57; PULSE 84; RESP 18
[2018-12-27] MEDS: FUROSEMIDE 20 MG INJ IV SCH (06:02)
[2018-12-27] MEDS: LISINOPRIL 20 MG TAB PO SCH ×2 (09:00→20:55)
[2018-12-27 09:13] VITALS: BP 103/51; PULSE 78; RESP 18
[2018-12-27] MEDS: NYSTATIN SUSP 5 ML CUP PO SCH ×4 (09:36→20:48)
[2018-12-27] MEDS: DOCUSATE SODIUM 100 MG CAP PO SCH ×2 (09:36→20:48)
[2018-12-27] MEDS: predniSONE 10 MG TAB PO SCH (09:36)
[2018-12-27] MEDS: CARISOPRODOL 350 MG TAB PO PRN (09:36)
[2018-12-27] MEDS: ENOXAPARIN 100 MG/ML SYG SC SCH (09:38)
[2018-12-27] MEDS: BUDESONIDE (NEB) 0.5MG/2ML AMP INH SCH ×2 (09:46→19:59)
[2018-12-27 13:50] VITALS: BP 107/51; RESP 19
--- NOTE | 2018-12-27 14:55 | PN ---
Date/Time of Note Date/Time of Note DATE: 12/27/18 TIME: 14:55 Assessment/Plan VTE Prophylaxis Risk score (from Ns)>0 risk: 4 SCD applied (from Ns): No SCD contraindicated: other Pharmacological prophylaxis: LMWH Lines/Catheters IV Catheter Type (from [facility] [place] Urinary Cath still in place: No Assessment/Plan Hospital Course 1. Low back pain on the left with the CT findings of possible T12 fracture. Now with spinal x-rays here patient had T6 and T7 compression fractures evident also on the CT of the thoracic spine>? No history of any trauma, pathological ? Osteoporosis She has been on chronic steroids because of COPD 2. Shortness of breath likely secondary to chronic obstructive pulmonary disease exacerbation. 3. History of chronic hypoxia on home oxygen. 4. Morbid obesity. 5. History of chronic obstructive pulmonary disease. 6. Hyperlipidemia. 7. History of migraine. Assessment/Plan - Dr basilio consult with Ortho -lidocaine patch -bone scan,neg. neurosurgery consult -Pain medicine to IV Dilaudid and p.o. [place] every 4 hours -Avoid benzos per pulmonary - benadryl prn - PT eval -dec steroids, nebs round the clock. -DVT proph. lovenox -GI proph. protonix -Pt will need SNF placement, dc Result Diagram: 12/26/18 0457 12/26/18456 Subjective 24 Hr Interval Summary Musculoskeletal: back pain, bone/joint pain Exam/Review of Systems Exam Vitals Vital Signs Date Temp Pulse Resp B/P (MAP) Pulse Ox O2 O2 Flow FiO2 Time Delivery Rate 12/27/18 98.6 19 107/51 97 13:50 (69) 12/27/18 93 Nasal 3.0 12:55 Cannula 12/24/18 00:07 Intake and Output 12/26/18 12/26/18 12/27/18 1515:00 23:00 07:00 IntakeIntake Total 900 ml 350 ml 500 ml BalanceBalance 900 ml 350 ml 500 ml Constitutional: alert, oriented Psych: no complaints Head: normocephalic Eyes: nl conjunctiva Respiratory: diminished breath sounds Cardiovascular: regular rate and rhythm Medications Medication Current Medications Acetaminophen (Tylenol Tab) 650 mg Q4 PRN PO prn; Start 12/19/18 at 00:30 Albuterol (Proventil 0.083% (Neb)) 2.5 mg Q6H RESP THERAPY PRN NEB SHORTNESS OF BREATH/WHEEZING Last administered on 12/23/18 18:15; Admin Dose 2.5 MG; Start 12/19/18 at 00:30 Benzonatate (Tessalon) 100 mg BID PRN PO prn Last administered on 12/19/18 20:22; Admin Dose 100 MG; Start 12/19/18 at 00:30 Budesonide (Pulmicort (Neb)) 0.5 mg BID RESP THERAPY INH Last administered on 12/27/18 09:46; Admin Dose 0.5 MG; Start 12/19/18 at 09:00 Docusate Sodium (Colace) 100 mg BID PO Last administered on 12/27/18 09:36; Admin Dose 100 MG; Start 12/19/18 at 09:00 Enoxaparin Sodium (Lovenox) 40 mg DAILY SC Last administered on 12/27/18 09:38; Admin Dose 40 MG; Start 12/19/18 at 09:00 Guaifenesin (Robitussin Liquid Cup) 100 mg Q6H PRN PO COUGH Last administered on 12/24/18 15:14; Admin Dose 100 MG; Start 12/19/18 at 00:30 Acetaminophen/ Hydrocodone Bitart ([place] (5/325)) 1 tab Q6H PRN PO MODERATE PAIN LEVEL 4-6 Last administered on 12/20/18 07:29; Admin Dose 1 TAB; Start 12/19/18 at 00:30 Albuterol/ Ipratropium (Duoneb) 3 ml Q4H RESP THERAPY INH Last administered on 12/27/18 12:55; Admin Dose 3 ML; Start 12/19/18 at 01:00 Montelukast Sodium (Singulair) 10 mg QHS PO Last administered on 12/26/18 20:54; Admin Dose 10 MG; Start 12/19/18 at 21:00 Nystatin (Nystatin Susp) 5 ml QID PO Last administered on 12/27/18 12:37; Admin Dose 5 ML; Start 12/19/18 at 09:00 Ondansetron HCl (Zofran Tab) 4 mg Q6H PRN PO NAUSEA AND/OR VOMITING Last administered on 12/19/18 20:22; Admin Dose 4 MG; Start 12/19/18 at 00:30 Pantoprazole (Protonix Tab) 40 mg DAILY@0600 PO Last administered on 12/27/18 06:01; Admin Dose 40 MG; Start 12/19/18 at 06:00 Tramadol HCl (Ultram) 50 mg Q6H PRN PO MODERATE PAIN LEVEL 4-6 Last administered on 12/23/18 03:16; Admin Dose 50 MG; Start 12/19/18 at 00:30 Lisinopril (Zestril) 20 mg BID PO Last administered on 12/26/18 20:55; Admin Dose 20 MG; Start 12/19/18 at 09:00 Calcium Carbonate (Tums) 1,000 mg Q4H PRN PO HEARTBURN; Start 12/19/18 at 01:00 Hydroxyzine HCl (Atarax) 25 mg BID PRN PO ITCHING Last administered on 12/23/18 07:13; Admin Dose 25 MG; Start 12/19/18 at 00:35 Carisoprodol (Soma) 350 mg Q8H PRN PO PAIN Last administered on 12/27/18 09:36; Admin Dose 350 MG; Start 12/21/18 at 17:30 Furosemide (Lasix) 20 mg DAILY@0600 IV Last administered on 12/27/18 06:02; Admin Dose 20 MG; Start 12/22/18 at 06:00 Diphenhydramine HCl (Benadryl) 25 mg Q6H PRN PO ITCHING; Start 12/23/18 at 13:30 Phenol (Cepastat Lozenge) 1 lozenge Q1H PRN MT COUGH Last administered on 12/23/18at 17:51; Admin Dose 1 LOZENGE; Start 12/23/18 at 18:00 Hydromorphone HCl (Dilaudid) 1 mg Q4H PRN IV SEVERE PAIN LEVEL 7-10 Last administered on 12/27/18 12:37; Admin Dose 1 MG; Start 12/24/18 at 11:00 Acetaminophen/ Hydrocodone Bitart ([place] (5/325)) 2 tab Q4H PRN PO MODERATE PAIN LEVEL 4-6 Last administered on 12/27/18 14:21; Admin Dose 2 TAB; Start 12/24/18 at 11:30 Prednisone (Prednisone) 30 mg DAILY PO Last administered on 12/27/18at 09:36; Admin Dose 30 MG; Start 12/26/18 at 09:00 SINGH ALY December 27, 2018 14:55
[2018-12-27] MEDS ORDERED: KETOROLAC 30 MG INJ IV STA (15:03)
[2018-12-27] MEDS: LIDOCAINE 5% PATCH TD SCH (16:52)
[2018-12-27 19:25] VITALS: BP 146/68; PULSE 100; RESP 20
[2018-12-27 20:09] VITALS: PULSE 90
[2018-12-27] MEDS: LUBIPROSTONE 8 MCG CAPSULE PO SCH (20:48)
[2018-12-27] MEDS: MONTELUKAST 10 MG TAB PO SCH (20:49)
[2018-12-28] MEDS: ALBUTEROL/IPRATROPIUM (NEB) 3 ML AMP INH SCH ×6 (00:18→20:31)
[2018-12-28] MEDS: HYDROmorphONE 1 MG/ML SYG IV PRN ×6 (00:53→21:06)
[2018-12-28 01:59] VITALS: BP 126/58; PULSE 85; RESP 18
[2018-12-28] MEDS: HYDROCODONE/APAP (5/325) TAB PO PRN ×6 (02:57→23:10)
[2018-12-28] MEDS: PANTOPRAZOLE (EC) 40 MG TAB PO SCH (05:27)
[2018-12-28] MEDS: FUROSEMIDE 20 MG INJ IV SCH (05:34)
[2018-12-28 07:58] VITALS: BP 104/61; PULSE 90; RESP 18
[2018-12-28] MEDS: BUDESONIDE (NEB) 0.5MG/2ML AMP INH SCH ×2 (09:07→20:31)
[2018-12-28] MEDS: NYSTATIN SUSP 5 ML CUP PO SCH ×4 (09:31→20:52)
[2018-12-28] MEDS: LUBIPROSTONE 8 MCG CAPSULE PO SCH ×2 (09:31→20:52)
[2018-12-28] MEDS: DOCUSATE SODIUM 100 MG CAP PO SCH ×2 (09:31→20:51)
[2018-12-28] MEDS: LISINOPRIL 20 MG TAB PO SCH ×2 (09:32→20:51)
[2018-12-28] MEDS: predniSONE 10 MG TAB PO SCH (09:32)
[2018-12-28] MEDS: LIDOCAINE 5% PATCH TD SCH (09:32)
[2018-12-28] MEDS: ENOXAPARIN 100 MG/ML SYG SC SCH (09:34)
[2018-12-28] MEDS: CARISOPRODOL 350 MG TAB PO PRN ×2 (11:00→23:51)
[2018-12-28] MEDS ORDERED: KETOROLAC 30 MG INJ IM STA (11:45)
--- NOTE | 2018-12-28 11:49 | PN ---
Date/Time of Note Date/Time of Note DATE: 12/28/18 TIME: 11:46 Assessment/Plan VTE Prophylaxis Risk score (from Nsg)>0 risk: 4 SCD applied (from Nsg): Yes Pharmacological prophylaxis: LMWH Lines/Catheters IV Catheter Type (from Nrsg): [place] Lock Urinary Cath still in place: No Assessment/Plan Hospital Course 1. Low back pain on the left with the CT findings of possible T12 fracture. Now with spinal x-rays here patient had T6 and T7 compression fractures evident also on the CT of the thoracic spine>? No history of any trauma, pathological ? Osteoporosis She has been on chronic steroids because of COPD 2. Shortness of breath likely secondary to chronic obstructive pulmonary disease exacerbation. 3. History of chronic hypoxia on home oxygen. 4. Morbid obesity. 5. History of chronic obstructive pulmonary disease. 6. Hyperlipidemia. 7. History of migraine. Assessment/Plan - Dr basilio consult with Ortho -lidocaine patch -bone scan,neg. -neurosurgery consult -Pain medicine to IV Dilaudid and p.o. [place] every 4 hours, LIDOCAINE PATCH -warm compress -toradol once -Avoid benzos per pulmonary - Benadryl prn - PT eval. has LSO corset -dec steroids, nebs round the clock. -DVT proph. lovenox -GI proph. protonix -Pt will need SNF placement, dc yesterday, pending Result Diagram: 12/28/18 0432 12/28/18 0432 Results 24hrs Laboratory Tests Test 12/28/18 04:32 White Blood Count 9.5 Red Blood Count 4.40 Hemoglobin 14.1 Hematocrit 44.5 Mean Corpuscular Volume 101.1 H Mean Corpuscular Hemoglobin 32.0 Mean Corpuscular Hemoglobin Concent 31.7 L Red Cell Distribution Width 14.5 Platelet Count 261 Mean Platelet Volume 9.8 Immature Granulocytes % 0.800 H Neutrophils % 63.5 Lymphocytes % 25.7 Monocytes % 9.4 Eosinophils % 0.4 Basophils % 0.2 Nucleated Red Blood Cells % 0.0 Immature Granulocytes # 0.080 H Neutrophils # 6.0 Lymphocytes # 2.4 Monocytes # 0.9 Eosinophils # 0.0 Basophils # 0.0 Nucleated Red Blood Cells # 0.0 Sodium Level 140 Potassium Level 4.0 Chloride Level 99 Carbon Dioxide Level 35 H Anion Gap 6 Blood Urea Nitrogen 30 #H Creatinine 0.55 Est Glomerular Filtrat Rate mL/min > 60 Glucose Level 115 Calcium Level 9.2 Subjective 24 Hr Interval Summary Gastrointestinal: no complaints Musculoskeletal: back pain (severe), bone/joint pain Exam/Review of Systems Exam Vitals Vital Signs Date Temp Pulse Resp B/P (MAP) Pulse Ox O2 O2 Flow FiO2 Time Delivery Rate 12/28/18 90 20 96 Nasal 3.0 09:17 Cannula 12/28/18 98.9 104/61 07:58 (75) Intake and Output 12/27/18 12/27/18 12/28/18 1414:59 22:59 06:59 IntakeIntake Total 720 ml 1460 ml BalanceBalance 720 ml 1460 ml Constitutional: alert, oriented Psych: nl mood/affect Head: normocephalic Eyes: nl conjunctiva Respiratory: diminished breath sounds, wheezing (left lung) Cardiovascular: regular rate and rhythm Gastrointestinal: soft Musculoskeletal: joint tenderness (lumbar area), muscle weakness Skin: ecchymosis, other (changes) Results Results 24hrs Laboratory Tests Test 12/28/18 04:32 White Blood Count 9.5 Red Blood Count 4.40 Hemoglobin 14.1 Hematocrit 44.5 Mean Corpuscular Volume 101.1 H Mean Corpuscular Hemoglobin 32.0 Mean Corpuscular Hemoglobin Concent 31.7 L Red Cell Distribution Width 14.5 Platelet Count 261 Mean Platelet Volume 9.8 Immature Granulocytes % 0.800 H Neutrophils % 63.5 Lymphocytes % 25.7 Monocytes % 9.4 Eosinophils % 0.4 Basophils % 0.2 Nucleated Red Blood Cells % 0.0 Immature Granulocytes # 0.080 H Neutrophils # 6.0 Lymphocytes # 2.4 Monocytes # 0.9 Eosinophils # 0.0 Basophils # 0.0 Nucleated Red Blood Cells # 0.0 Sodium Level 140 Potassium Level 4.0 Chloride Level 99 Carbon Dioxide Level 35 H Anion Gap 6 Blood Urea Nitrogen 30 #H Creatinine 0.55 Est Glomerular Filtrat Rate mL/min > 60 Glucose Level 115 Calcium Level 9.2 Medications Medication Current Medications Acetaminophen (Tylenol Tab) 650 mg Q4 PRN PO prn; Start 12/19/18 at 00:30 Albuterol (Proventil 0.083% (Neb)) 2.5 mg Q6H RESP THERAPY PRN NEB SHORTNESS OF BREATH/WHEEZING Last administered on 12/23/18at 18:15; Admin Dose 2.5 MG; Start 12/19/18 at 00:30 Benzonatate (Tessalon) 100 mg BID PRN PO prn Last administered on 12/19/18 20:22; Admin Dose 100 MG; Start 12/19/18 at 00:30 Budesonide (Pulmicort (Neb)) 0.5 mg BID RESP THERAPY INH Last administered on 12/28/18 09:07; Admin Dose 0.5 MG; Start 12/19/18 at 09:00 Docusate Sodium (Colace) 100 mg BID PO Last administered on 12/28/18 09:31; Admin Dose 100 MG; Start 12/19/18 at 09:00 Enoxaparin Sodium (Lovenox) 40 mg DAILY SC Last administered on 12/28/18 09:34; Admin Dose 40 MG; Start 12/19/18 at 09:00 Guaifenesin (Robitussin Liquid Cup) 100 mg Q6H PRN PO COUGH Last administered on 12/24/18 15:14; Admin Dose 100 MG; Start 12/19/18 at 00:30 Acetaminophen/ Hydrocodone Bitart ([place] (5/325)) 1 tab Q6H PRN PO MODERATE PAIN LEVEL 4-6 Last administered on 12/20/18 07:29; Admin Dose 1 TAB; Start 12/19/18 at 00:30 Albuterol/ Ipratropium (Duoneb) 3 ml Q4H RESP THERAPY INH Last administered on 12/28/18 09:07; Admin Dose 3 ML; Start 12/19/18 at 01:00 Montelukast Sodium (Singulair) 10 mg QHS PO Last administered on 12/27/18 20:49; Admin Dose 10 MG; Start 12/19/18 at 21:00 Nystatin (Nystatin Susp) 5 ml QID PO Last administered on 12/28/18 09:31; Admin Dose 5 ML; Start 12/19/18 at 09:00 Ondansetron HCl (Zofran Tab) 4 mg Q6H PRN PO NAUSEA AND/OR VOMITING Last administered on 12/19/18 20:22; Admin Dose 4 MG; Start 12/19/18 at 00:30 Pantoprazole (Protonix Tab) 40 mg DAILY@0600 PO Last administered on 12/28/18 05:27; Admin Dose 40 MG; Start 12/19/18 at 06:00 Tramadol HCl (Ultram) 50 mg Q6H PRN PO MODERATE PAIN LEVEL 4-6 Last administered on 12/23/18 03:16; Admin Dose 50 MG; Start 12/19/18 at 00:30 Lisinopril (Zestril) 20 mg BID PO Last administered on 12/28/18 09:32; Admin Dose 20 MG; Start 12/19/18 at 09:00 Calcium Carbonate (Tums) 1,000 mg Q4H PRN PO HEARTBURN; Start 12/19/18 at 01:00 Hydroxyzine HCl (Atarax) 25 mg BID PRN PO ITCHING Last administered on 12/23/18 07:13; Admin Dose 25 MG; Start 12/19/18 at 00:35 Carisoprodol (Soma) 350 mg Q8H PRN PO PAIN Last administered on 12/28/18 11:00; Admin Dose 350 MG; Start 12/21/18 at 17:30 Furosemide (Lasix) 20 mg DAILY@0600 IV Last administered on 12/28/18 05:34; Admin Dose 20 MG; Start 12/22/18 at 06:00 Diphenhydramine HCl (Benadryl) 25 mg Q6H PRN PO ITCHING; Start 12/23/18 at 13:30 Phenol (Cepastat Lozenge) 1 lozenge Q1H PRN MT COUGH Last administered on 12/23/18 17:51; Admin Dose 1 LOZENGE; Start 12/23/18 at 18:00 Hydromorphone HCl (Dilaudid) 1 mg Q4H PRN IV SEVERE PAIN LEVEL 7-10 Last administered on 12/28/18 09:35; Admin Dose 1 MG; Start 12/24/18 at 11:00 Acetaminophen/ Hydrocodone Bitart ([place] (5/325)) 2 tab Q4H PRN PO MODERATE PAIN LEVEL 4-6 Last administered on 12/28/18 10:57; Admin Dose 2 TAB; Start 12/24/18 at 11:30 Prednisone (Prednisone) 30 mg DAILY PO Last administered on 12/28/18 09:32; Admin Dose 30 MG; Start 12/26/18 at 09:00 Lidocaine (Lidoderm) 2 patch DAILY TD Last administered on 12/28/18at 09:32; Admin Dose 2 PATCH; Start 12/27/18 at 15:30 Lubiprostone (Amitiza) 16 mcg BID PO Last administered on 12/28/18at 09:31; Admin Dose 16 MCG; Start 12/27/18 at 21:00 SINGH ALY December 28, 2018 11:49
[2018-12-28 14:00] VITALS: BP 120/66; PULSE 88; RESP 18
--- NOTE | 2018-12-28 19:25 | CONS ---
SUKHDEV MALAVE MD December 28, 2018 19:25
[2018-12-28 19:50] VITALS: BP 121/75; PULSE 94; RESP 18
[2018-12-28] MEDS: MONTELUKAST 10 MG TAB PO SCH (20:51)
[2018-12-29] MEDS: ALBUTEROL/IPRATROPIUM (NEB) 3 ML AMP INH SCH ×6 (01:03→20:43)
[2018-12-29] MEDS: HYDROmorphONE 1 MG/ML SYG IV PRN ×6 (01:10→22:19)
[2018-12-29 01:58] VITALS: BP 116/65; PULSE 94; RESP 18
[2018-12-29] MEDS: HYDROCODONE/APAP (5/325) TAB PO PRN ×5 (04:29→20:35)
[2018-12-29] MEDS: traMADol 50 MG TAB PO PRN (04:42)
[2018-12-29] MEDS: FUROSEMIDE 20 MG INJ IV SCH (06:00)
[2018-12-29] MEDS: PANTOPRAZOLE (EC) 40 MG TAB PO SCH (06:27)
[2018-12-29 08:08] VITALS: BP 139/61; PULSE 79; RESP 18
[2018-12-29] MEDS: NYSTATIN SUSP 5 ML CUP PO SCH ×4 (08:34→20:35)
[2018-12-29] MEDS: DOCUSATE SODIUM 100 MG CAP PO SCH ×2 (08:34→20:34)
[2018-12-29] MEDS: LISINOPRIL 20 MG TAB PO SCH ×2 (08:35→20:36)
[2018-12-29] MEDS: predniSONE 10 MG TAB PO SCH (08:35)
[2018-12-29] MEDS: LIDOCAINE 5% PATCH TD SCH (08:36)
[2018-12-29] MEDS: LUBIPROSTONE 8 MCG CAPSULE PO SCH ×2 (08:36→20:35)
[2018-12-29] MEDS: ENOXAPARIN 100 MG/ML SYG SC SCH (08:39)
[2018-12-29] MEDS: BUDESONIDE (NEB) 0.5MG/2ML AMP INH SCH ×2 (09:09→20:43)
--- NOTE | 2018-12-29 12:51 | PN ---
Date/Time of Note Date/Time of Note DATE: 12/29/18 TIME: 12:50 Assessment/Plan VTE Prophylaxis Risk score (from Ns)>0 risk: 4 [place]CD applied ([facility] No SCD contraindicated: other Pharmacological prophylaxis: LMWH Lines/Catheters IV C[facility]ter Type (from [facility] [place] Urinary Cath still in place: No Assessment/Plan Hospital Course 1. Low back pain on the left with the CT findings of possible T12 fracture. Now with spinal x-rays here patient had T6 and T7 compression fractures evident also on the CT of the thoracic spine>? No history of any trauma, pathological ? Osteoporosis She has been on chronic steroids because of COPD 2. Shortness of breath likely secondary to chronic obstructive pulmonary disease exacerbation. 3. History of chronic hypoxia on home oxygen. 4. Morbid obesity. 5. History of chronic obstructive pulmonary disease. 6. Hyperlipidemia. 7. History of migraine. Assessment/Plan - Dr Corea consult with Ortho -lidocaine patches does not work -bone scan,neg. -neurosurgery consult Dr Marrero -Pain medicine to IV Dilaudid and p.o. [place] every 4 hours, LIDOCAINE PATCH -warm compresses -Avoid benzos per pulmonary - Benadryl prn - PT eval. and treatment has LSO corset -dec steroids, nebs round the clock. -DVT proph. Lovenox -GI proph. protonix -Pt will need SNF placement, dc, pending Result Diagram: 12/29/1842212/29/18422 Results 24hrs Laboratory Tests Test 12/29/18 04:23 White Blood Count 9.4 Red Blood Count 4.14 L Hemoglobin 13.3 Hematocrit 42.1 Mean Corpuscular Volume 101.7 H Mean Corpuscular Hemoglobin 32.1 Mean Corpuscular Hemoglobin Concent 31.6 L Red Cell Distribution Width 14.4 Platelet Count 256 Mean Platelet Volume 9.9 Immature Granulocytes % 0.600 H Neutrophils % 64.8 Lymphocytes % 25.5 Monocytes % 8.7 Eosinophils % 0.3 Basophils % 0.1 Nucleated Red Blood Cells % 0.0 Immature Granulocytes # 0.060 H Neutrophils # 6.1 Lymphocytes # 2.4 Monocytes # 0.8 Eosinophils # 0.0 Basophils # 0.0 Nucleated Red Blood Cells # 0.0 Sodium Level 141 Potassium Level 3.8 Chloride Level 100 Carbon Dioxide Level 35 H Anion Gap 6 Blood Urea Nitrogen 28 H Creatinine 0.52 Est Glomerular Filtrat Rate mL/min > 60 Glucose Level 97 Calcium Level 9.4 Subjective 24 Hr Interval Summary Musculoskeletal: back pain, restricted range of motion Exam/Review of Systems Exam Vitals Vital Signs Date Temp Pulse Resp B/P (MAP) Pulse Ox O2 O2 Flow FiO2 Time Delivery Rate 12/29/18 94 20 98 21 09:19 12/29/18 98.1 139/61 08:08 (87) 12/29/18 Nasal 4.0 08:00 Cannula Intake and Output 12/28/18 12/28/18 12/29/18 1515:00 23:00 07:00 IntakeIntake Total 1140 ml 200 ml OutputOutput Total 200 ml 200 ml BalanceBalance 940 ml 0 ml Constitutional: alert, oriented Psych: no complaints Respiratory: diminished breath sounds, labored breathing, wheezing Cardiovascular: regular rate and rhythm Gastrointestinal: soft Musculoskeletal: muscle weakness, other (paravertebral spasm) Skin: ecchymosis Results Results 24hrs Laboratory Tests Test 12/29/18 04:23 White Blood Count 9.4 Red Blood Count 4.14 L Hemoglobin 13.3 Hematocrit 42.1 Mean Corpuscular Volume 101.7 H Mean Corpuscular Hemoglobin 32.1 Mean Corpuscular Hemoglobin Concent 31.6 L Red Cell Distribution Width 14.4 Platelet Count 256 Mean Platelet Volume 9.9 Immature Granulocytes % 0.600 H Neutrophils % 64.8 Lymphocytes % 25.5 Monocytes % 8.7 Eosinophils % 0.3 Basophils % 0.1 Nucleated Red Blood Cells % 0.0 Immature Granulocytes # 0.060 H Neutrophils # 6.1 Lymphocytes # 2.4 Monocytes # 0.8 Eosinophils # 0.0 Basophils # 0.0 Nucleated Red Blood Cells # 0.0 Sodium Level 141 Potassium Level 3.8 Chloride Level 100 Carbon Dioxide Level 35 H Anion Gap 6 Blood Urea Nitrogen 28 H Creatinine 0.52 Est Glomerular Filtrat Rate mL/min > 60 Glucose Level 97 Calcium Level 9.4 Medications Medication Current Medications Acetaminophen (Tylenol Tab) 650 mg Q4 PRN PO prn; Start 12/19/18 at 00:30 Albuterol (Proventil 0.083% (Neb)) 2.5 mg Q6H RESP THERAPY PRN NEB SHORTNESS OF BREATH/WHEEZING Last administered on 12/23/18at 18:15; Admin Dose 2.5 MG; Start 12/19/18 at 00:30 Benzonatate (Tessalon) 100 mg BID PRN PO prn Last administered on 12/19/18 20:22; Admin Dose 100 MG; Start 12/19/18 at 00:30 Budesonide (Pulmicort (Neb)) 0.5 mg BID RESP THERAPY INH Last administered on 12/29/18 09:09; Admin Dose 0.5 MG; Start 12/19/18 at 09:00 Docusate Sodium (Colace) 100 mg BID PO Last administered on 12/29/18 08:34; Admin Dose 100 MG; Start 12/19/18 at 09:00 Enoxaparin Sodium (Lovenox) 40 mg DAILY SC Last administered on 12/29/18 08:39; Admin Dose 40 MG; Start 12/19/18 at 09:00 Guaifenesin (Robitussin Liquid Cup) 100 mg Q6H PRN PO COUGH Last administered on 12/24/18 15:14; Admin Dose 100 MG; Start 12/19/18 at 00:30 Acetaminophen/ Hydrocodone Bitart ([place] (5/325)) 1 tab Q6H PRN PO MODERATE PAIN LEVEL 4-6 Last administered on 12/20/18 07:29; Admin Dose 1 TAB; Start 12/19/18 at 00:30 Albuterol/ Ipratropium (Duoneb) 3 ml Q4H RESP THERAPY INH Last administered on 12/29/18 09:08; Admin Dose 3 ML; Start 12/19/18 at 01:00 Montelukast Sodium (Singulair) 10 mg QHS PO Last administered on 12/28/18 20:51; Admin Dose 10 MG; Start 12/19/18 at 21:00 Nystatin (Nystatin Susp) 5 ml QID PO Last administered on 12/29/18 08:34; Admin Dose 5 ML; Start 12/19/18 at 09:00 Ondansetron HCl (Zofran Tab) 4 mg Q6H PRN PO NAUSEA AND/OR VOMITING Last administered on 12/19/18 20:22; Admin Dose 4 MG; Start 12/19/18 at 00:30 Pantoprazole (Protonix Tab) 40 mg DAILY@0600 PO Last administered on 12/29/18 06:27; Admin Dose 40 MG; Start 12/19/18 at 06:00 Tramadol HCl (Ultram) 50 mg Q6H PRN PO MODERATE PAIN LEVEL 4-6 Last administered on 12/29/18 04:42; Admin Dose 50 MG; Start 12/19/18 at 00:30 Lisinopril (Zestril) 20 mg BID PO Last administered on 12/29/18 08:35; Admin Dose 20 MG; Start 12/19/18 at 09:00 Calcium Carbonate (Tums) 1,000 mg Q4H PRN PO HEARTBURN; Start 12/19/18 at 01:00 Hydroxyzine HCl (Atarax) 25 mg BID PRN PO ITCHING Last administered on 12/23/18 07:13; Admin Dose 25 MG; Start 12/19/18 at 00:35 Carisoprodol (Soma) 350 mg Q8H PRN PO PAIN Last administered on 12/28/18 23:51; Admin Dose 350 MG; Start 12/21/18 at 17:30 Furosemide (Lasix) 20 mg DAILY@0600 IV Last administered on 12/28/18 05:34; Admin Dose 20 MG; Start 12/22/18 at 06:00 Diphenhydramine HCl (Benadryl) 25 mg Q6H PRN PO ITCHING; Start 12/23/18 at 13:30 Phenol (Cepastat Lozenge) 1 lozenge Q1H PRN MT COUGH Last administered on 12/23/18 17:51; Admin Dose 1 LOZENGE; Start 12/23/18 at 18:00 Hydromorphone HCl (Dilaudid) 1 mg Q4H PRN IV SEVERE PAIN LEVEL 7-10 Last administered on 12/29/18 10:35; Admin Dose 1 MG; Start 12/24/18 at 11:00 Acetaminophen/ Hydrocodone Bitart ([place] (5/325)) 2 tab Q4H PRN PO MODERATE PAIN LEVEL 4-6 Last administered on 12/29/18 08:36; Admin Dose 2 TAB; Start 12/24/18 at 11:30 Prednisone (Prednisone) 30 mg DAILY PO Last administered on 12/29/18 08:35; Admin Dose 30 MG; Start 12/26/18 at 09:00 Lidocaine (Lidoderm) 2 patch DAILY TD Last administered on 12/29/18at 08:36; Admin Dose 2 PATCH; Start 12/27/18 at 15:30 Lubiprostone (Amitiza) 16 mcg BID PO Last administered on 12/29/18at 08:36; Admin Dose 16 MCG; Start 12/27/18 at 21:00 SINGH ALY December 29, 2018 12:51
[2018-12-29] MEDS ORDERED: KETOROLAC 30 MG INJ IV STA (13:00)
[2018-12-29 15:07] VITALS: BP 144/80; PULSE 82; RESP 18
[2018-12-29] MEDS: CARISOPRODOL 350 MG TAB PO PRN (17:21)
[2018-12-29 20:18] VITALS: BP 116/58; PULSE 94; RESP 18
[2018-12-29] MEDS: MONTELUKAST 10 MG TAB PO SCH (20:35)
[2018-12-30] MEDS: HYDROCODONE/APAP (5/325) TAB PO PRN ×5 (00:33→18:57)
[2018-12-30] MEDS: ALBUTEROL/IPRATROPIUM (NEB) 3 ML AMP INH SCH ×6 (00:43→21:46)
[2018-12-30 01:55] VITALS: BP 138/73; PULSE 82; RESP 20
[2018-12-30] MEDS: HYDROmorphONE 1 MG/ML SYG IV PRN ×4 (02:33→14:29)
[2018-12-30] MEDS: CARISOPRODOL 350 MG TAB PO PRN ×2 (03:05→11:29)
[2018-12-30] MEDS: PANTOPRAZOLE (EC) 40 MG TAB PO SCH (06:25)
[2018-12-30] MEDS: FUROSEMIDE 20 MG INJ IV SCH (06:28)
[2018-12-30 07:45] VITALS: BP 131/68; PULSE 78; RESP 19
[2018-12-30] MEDS: DOCUSATE SODIUM 100 MG CAP PO SCH ×2 (08:43→20:30)
[2018-12-30] MEDS: NYSTATIN SUSP 5 ML CUP PO SCH ×4 (08:43→20:28)
[2018-12-30] MEDS: predniSONE 10 MG TAB PO SCH (08:43)
[2018-12-30] MEDS: LISINOPRIL 20 MG TAB PO SCH ×2 (08:44→20:31)
[2018-12-30] MEDS: LUBIPROSTONE 8 MCG CAPSULE PO SCH ×2 (08:44→20:31)
[2018-12-30] MEDS: ENOXAPARIN 100 MG/ML SYG SC SCH (08:51)
[2018-12-30] MEDS: BUDESONIDE (NEB) 0.5MG/2ML AMP INH SCH ×2 (10:00→21:35)
[2018-12-30] MEDS ORDERED: HYDROmorphONE 1 MG/ML SYG IV PRN (15:00)
--- NOTE | 2018-12-30 15:02 | PN ---
Date/Time of Note Date/Time of Note DATE: 12/30/18 TIME: 14:59 Assessment/Plan VTE Prophylaxis Risk score (from Nsg)>0 risk: 4 SCD applied (from Ns): No SCD contraindicated: low risk/ambulating Pharmacological prophylaxis: NA/contraindicated Pharm contraindication: low risk/ambulating Lines/Catheters IV Catheter Type (from Nrsg): Saline Lock Urinary Cath still in place: No Assessment/Plan Hospital Course 1 Low back pain on the left with the CT findings of possible T12 fracture. at OSH now with spinal x-rays here patient had T6 and T7 compression fractures evident also on the CT of the thoracic spine>? No history of any trauma, path ological ? Osteoporosis CT spine Compression fracture of the T7 vertebral body with 75% anterior height loss, appearing likely acute. There is mild retropulsion of the upper T7 vertebral body, with mild appearing associated central canal stenosis. Mild bilateral foraminal stenosis at T7-T8 related to vertebral body height loss. She has been on chronic steroids because of COPD 2. Shortness of breath likely secondary to chronic obstructive pulmonary disease exacerbation. 3. History of chronic hypoxia on home oxygen. 4. Morbid obesity. 5. History of chronic obstructive pulmonary disease. 6. Hyperlipidemia. 7. History of migraine. Assessment/Plan -Was not able to tolerate MRI scan procedure again, despite increased dose of morphine, -Dr. Corea will start on gabapentin switch from IV Dilaudid to p.o. we will try try to transition from IV to p.o., -cw With Douglas 2 tabs/tramadol/toradol -Pain management consult - benadryl prn - PT eval -dec steroids, nebs round the clock. -DVT proph. lovenox -GI proph. protonix Pt will need SNIF placement, spoke to bilingual case manager still waiting for acceptance Result Diagram: 12/29/18 0423 12/29/18 0423 Results 24hrs Laboratory Tests Test 12/30/18 06:53 Lab Scanned Report REFERENCE LAB Subjective 24 Hr Interval Summary Free Text/Dictation Patient states that having shocklike pain in the lower back Exam/Review of Systems Exam Vitals Vital Signs Date Temp Pulse Resp B/P (MAP) Pulse Ox O2 O2 Flow FiO2 Time Delivery Rate 12/30/18 88 18 94 Nasal 3.0 10:00 Cannula 12/30/18 98.2 131/68 07:45 (89) 12/29/18 28 16:57 Intake and Output 12/29/18 12/29/18 12/30/18 1515:00 23:00 07:00 IntakeIntake Total 840 ml 600 ml 480 ml BalanceBalance 840 ml 600 ml 480 ml Exam Constitutional: alert, oriented Psych: no complaints Respiratory: diminished breath sounds, labored breathing, wheezing Cardiovascular: regular rate and rhythm Gastrointestinal: soft Musculoskeletal: muscle weakness, other (paravertebral spasm) Skin: ecchymosis Results Results 24hrs Laboratory Tests Test 12/30/18 06:53 Lab Scanned Report REFERENCE LAB Medications Medication Current Medications Acetaminophen (Tylenol Tab) 650 mg Q4 PRN PO prn; Start 12/19/18 at 00:30 Albuterol (Proventil 0.083% (Neb)) 2.5 mg Q6H RESP THERAPY PRN NEB SHORTNESS OF BREATH/WHEEZING Last administered on 12/23/18 18:15; Admin Dose 2.5 MG; Start 12/19/18 at 00:30 Benzonatate (Tessalon) 100 mg BID PRN PO prn Last administered on 12/19/18 20:22; Admin Dose 100 MG; Start 12/19/18 at 00:30 Budesonide (Pulmicort (Neb)) 0.5 mg BID RESP THERAPY INH Last administered on 12/30/18 10:00; Admin Dose 0.5 MG; Start 12/19/18 at 09:00 Docusate Sodium (Colace) 100 mg BID PO Last administered on 12/30/18 08:43; Admin Dose 100 MG; Start 12/19/18 at 09:00 Enoxaparin Sodium (Lovenox) 40 mg DAILY SC Last administered on 12/30/18 08:51; Admin Dose 40 MG; Start 12/19/18 at 09:00 Guaifenesin (Robitussin Liquid Cup) 100 mg Q6H PRN PO COUGH Last administered on 12/24/18 15:14; Admin Dose 100 MG; Start 12/19/18 at 00:30 Acetaminophen/ Hydrocodone Bitart ([place] (5/325)) 1 tab Q6H PRN PO MODERATE PAIN LEVEL 4-6 Last administered on 12/20/18 07:29; Admin Dose 1 TAB; Start 12/19/18 at 00:30 Albuterol/ Ipratropium (Duoneb) 3 ml Q4H RESP THERAPY INH Last administered on 12/30/18 09:59; Admin Dose 3 ML; Start 12/19/18 at 01:00 Montelukast Sodium (Singulair) 10 mg QHS PO Last administered on 12/29/18 20:35; Admin Dose 10 MG; Start 12/19/18 at 21:00 Nystatin (Nystatin Susp) 5 ml QID PO Last administered on 12/30/18 14:28; Admin Dose 5 ML; Start 12/19/18 at 09:00 Ondansetron HCl (Zofran Tab) 4 mg Q6H PRN PO NAUSEA AND/OR VOMITING Last administered on 12/19/18 20:22; Admin Dose 4 MG; Start 12/19/18 at 00:30 Pantoprazole (Protonix Tab) 40 mg DAILY@0600 PO Last administered on 12/30/18 06:25; Admin Dose 40 MG; Start 12/19/18 at 06:00 Tramadol HCl (Ultram) 50 mg Q6H PRN PO MODERATE PAIN LEVEL 4-6 Last administered on 12/29/18 04:42; Admin Dose 50 MG; Start 12/19/18 at 00:30 Lisinopril (Zestril) 20 mg BID PO Last administered on 12/30/18 08:44; Admin Dose 20 MG; Start 12/19/18 at 09:00 Calcium Carbonate (Tums) 1,000 mg Q4H PRN PO HEARTBURN; Start 12/19/18 at 01:00 Hydroxyzine HCl (Atarax) 25 mg BID PRN PO ITCHING Last administered on 12/23/18 07:13; Admin Dose 25 MG; Start 12/19/18 at 00:35 Carisoprodol (Soma) 350 mg Q8H PRN PO PAIN Last administered on 12/30/18 11:29; Admin Dose 350 MG; Start 12/21/18 at 17:30 Furosemide (Lasix) 20 mg DAILY@0600 IV Last administered on 12/30/18 06:28; Admin Dose 20 MG; Start 12/22/18 at 06:00 Diphenhydramine HCl (Benadryl) 25 mg Q6H PRN PO ITCHING; Start 12/23/18 at 13:30 Phenol (Cepastat Lozenge) 1 lozenge Q1H PRN MT COUGH Last administered on 12/23/18at 17:51; Admin Dose 1 LOZENGE; Start 12/23/18 at 18:00 Hydromorphone HCl (Dilaudid) 1 mg Q4H PRN IV SEVERE PAIN LEVEL 7-10 Last administered on 12/30/18at 14:29; Admin Dose 1 MG; Start 12/24/18 at 11:00 Acetaminophen/ Hydrocodone Bitart ([place] (5/325)) 2 tab Q4H PRN PO MODERATE PAIN LEVEL 4-6 Last administered on 12/30/18 13:10; Admin Dose 2 TAB; Start 12/24/18 at 11:30 Prednisone (Prednisone) 30 mg DAILY PO Last administered on 12/30/18at 08:43; Admin Dose 30 MG; Start 12/26/18 at 09:00 Lubiprostone (Amitiza) 16 mcg BID PO Last administered on 12/30/18at 08:44; Admin Dose 16 MCG; Start 12/27/18 at 21:00 Ketorolac Tromethamine (Toradol) 15 mg Q6H PRN IV PAIN; Start 12/30/18 at 13:00; Stop 01/02/19 at 12:59 AMERICO MCCLAIN MD December 30, 2018 15:02
[2018-12-30] MEDS: KETOROLAC 15 MG INJ IV PRN ×2 (16:39→22:17)
[2018-12-30] MEDS: HYDROmorphONE 2 MG TAB PO PRN (17:58)
[2018-12-30 19:18] VITALS: BP 165/67; PULSE 99; RESP 21
[2018-12-30] MEDS: GABAPENTIN 100 MG CAP PO SCH (20:30)
[2018-12-30] MEDS: MONTELUKAST 10 MG TAB PO SCH (20:30)
[2018-12-30] MEDS: oxyCODONE (CR) 10 MG TAB [oxyCONTIN] PO SCH (20:36)
[2018-12-30] MEDS: HYDROmorphONE 0.5 MG/0.5 ML SYG IV PRN (21:28)
[2018-12-30] MEDS: CALCITONIN SALMON INJ 200 UNITS/ML SYG SC SCH (23:30)
[2018-12-31] MEDS: HYDROmorphONE 0.5 MG/0.5 ML SYG IV PRN ×3 (00:39→08:46)
[2018-12-31 01:23] VITALS: BP 120/82; PULSE 93; RESP 20
[2018-12-31] MEDS: ALBUTEROL/IPRATROPIUM (NEB) 3 ML AMP INH SCH ×5 (01:25→17:00)
[2018-12-31] MEDS: KETOROLAC 15 MG INJ IV PRN ×3 (04:09→16:22)
[2018-12-31] MEDS: FUROSEMIDE 20 MG INJ IV SCH (05:39)
[2018-12-31] MEDS: PANTOPRAZOLE (EC) 40 MG TAB PO SCH (05:39)
--- NOTE | 2018-12-31 06:27 | CONS ---
Assessment/Plan Assessment/Plan Assessment/Plan (Daily) LS spine fractures severe LBP Severe COPD Onesity Change to alternating low dose of toradol and very low dose of dilaudid,,, add oxyontin no benzos or centrally acting meds Consultation Date/Type/Reason Admit Date/Time December 18, 2018 at 21:31 Date/Time of Note DATE: 12/31/18 TIME: 06:21 Hx of Present Illness This is a 53-year-old female I was asked to see in pain management consultation. Patient was admitted to [facility] with exacerbation of COPD and back pain. During her hospitalization she was found to have a T12 fracture on CT scan pression fractures of T6-T7. Since that time she has had excruciating back pain unable to sleep at night interferes with her mood sleeping pattern overall functioning, rated 10/10. She writhing in bed [id number] complaining of severe unrelenting discomfort. Denies any warning signs. Patient also has a history of significant chronic obstructive pulmonary disease, chronic hypoxic hypoxemic respiratory failure, morbid obesity hyperlipidemia. Patient states she is had this pain for approximately 1 month. Denies nausea vomiting fevers chills cough shortness of breath pruritus constipation.pain unrelieved with any current pain meds per pt. Past Medical History Medical History: high cholesterol, hypertension, other (morbid obesity) Home Meds Active Scripts Amoxicillin/Potassium Clav (Amox-Clav 875-125 mg Tablet) 875-125 mg Tab, 1 TAB PO BID for 7 Days, #20 TAB Prov:AMERICO MCCLAIN MD 11/02/18 Sulfamethoxazole/Trimethoprim* (Bactrim Ds* Tablet) 1 Each Tablet, 1 TAB PO BID for 7 Days, TAB Prov:AMERICO MCCLAIN MD 11/02/18 [Ipratropium 0.02% (Neb)] 0.5 MG/2.5 ML NEBU No Conflict Check, 0.5 MG HHN Q6 for 30 Days Prov:SINGH LAY 11/02/18 Albuterol Sulfate* (Albuterol Sulfate* Neb) 0.083%-3 Ml Neb, 2.5 MG HHN Q6 for 30 Days Prov:SINGH ALY 11/02/18 Losartan-Hydrochlorothiazide (Losartan-HCTZ) 50-12.5 Mg Tab, 1 TAB PO DAILY for 30 Days, TAB Prov:SINGH ALY 11/01/18 Mupirocin* (Bactroban*) 2% -22 Gram Oint...g., 14 APPLIC TOP TID, #1 TUB SITE OF APPLICATION: Prov:SINGH ALY 11/01/18 Prednisone* (Prednisone*) 10 Mg Tab, 30 MG PO DAILY for 5 Days, TAB Prov:SINGH ALY 11/01/18 Reported Medications Tramadol HCl (Tramadol HCl) 50 Mg Tablet, 50 MG PO Q6H PRN for PAIN, #120 TAB 12/18/18 Ondansetron Hcl* (Zofran*) 4 Mg Tab, 4 MG PO Q6 PRN for NAUSEA AND OR VOMITING, TAB 12/18/18 Hydroxyzine Hcl* (Atarax*) 2 Mg/Ml Syrup, 25 MG PO Q6H PRN for ITCHING, ML 12/18/18 Hydrocodone/Acetaminophen ([place] 5-325 Tablet) 1 Each Tablet, 2 EACH PO Q6 PRN for prn, TAB 12/18/18 Hydrocodone/Acetaminophen ([place] 5-325 Tablet) 1 Each Tablet, 1 EACH PO Q6 PRN for prn, TAB 12/18/18 Guaifenesin* (Robitussin*) 100 Mg/5 Ml Syrup, 100 MG PO Q6H PRN for COUGH, ML 12/18/18 Calcium Carbonate* (Calcium Carbonate*) 600 MG Ca Tab, 1000 MG PO Q4 PRN for prn, TAB 12/18/18 Benzonatate* (Tessalon Perle*) 100 Mg Capsule, 100 MG PO Q4 PRN for prn, CAP 12/18/18 Albuterol Sulfate* (Albuterol Sulfate* Neb) 0.083%-3 Ml Neb, 2.5 MG NEB Q6 PRN for prn, #30 VIAL 12/18/18 Acetaminophen* (Tylophen*) 500 Mg Capsule, 650 MG PO Q4 PRN for prn, TAB 12/18/18 Sodium Chloride* (1/2 NS*) 500 Ml Iv.soln., 1000 ML IV, EA 12/18/18 Prednisone (Deltasone) 20 Mg Tablet, 40 MG PO DAILY, TAB 12/18/18 Pantoprazole* (Protonix*) 40 Mg Tablet.dr, 40 MG PO DAILY, TAB 12/18/18 Nystatin (Nystatin) 100,000 Unit/1 Ml Oral.susp, 5 ML PO QID, #60 ML 12/18/18 Montelukast Sodium* (Singulair*) 10 Mg Tablet, 10 MG PO QHS, #30 TAB 12/18/18 Enoxaparin Sodium (Enoxaparin Sodium) 100 Mg/1 Ml Syringe, 40 MG SC DAILY, SYR 12/18/18 Docusate Sodium* (Docusate Sodium*) 100 Mg Capsule, 100 MG PO BID, #60 CAP 12/18/18 Budesonide* (Pulmicort*) 1 Mg/2 Ml Ampul.neb, 0.5 MG INHALATION BID, #60 AMP 12/18/18 Ipratropium-Albuterol (Ipratropium-Albuterol) 0.5-3 Mg/3 Ml Ampul.neb, 3 ML INHALATION Q4, #30 VIAL 12/18/18 Montelukast Sodium* (Montelukast Sodium*) 10 Mg Tablet, 10 MG PO QHS, #30 TAB 10/28/18 Docusate Sodium* (Colace*) 100 Mg Capsule, 100 MG PO BID, #60 CAP 10/28/18 Albuterol Sulfate* (Albuterol Sulfate* Neb) 0.083%-3 Ml Neb, 2.5 MG NEB Q6, #30 VIAL 10/28/18 Budesonide* (Budesonide*) 0.5 Mg/2 Ml Ampul.neb, 0.5 MG INHALATION BID, AMP 10/28/18 Medications Current Medications Acetaminophen (Tylenol Tab) 650 mg Q4 PRN PO prn; Start 12/19/18 at 00:30 Albuterol (Proventil 0.083% (Neb)) 2.5 mg Q6H RESP THERAPY PRN NEB SHORTNESS OF BREATH/WHEEZING Last administered on 12/23/18at 18:15; Admin Dose 2.5 MG; Start 12/19/18 at 00:30 Benzonatate (Tessalon) 100 mg BID PRN PO prn Last administered on 12/19/18at 20:22; Admin Dose 100 MG; Start 12/19/18 at 00:30 Budesonide (Pulmicort (Neb)) 0.5 mg BID RESP THERAPY INH Last administered on 12/30/18 21:35; Admin Dose 0.5 MG; Start 12/19/18 at 09:00 Docusate Sodium (Colace) 100 mg BID PO Last administered on 12/30/18 20:30; Admin Dose 100 MG; Start 12/19/18 at 09:00 Enoxaparin Sodium (Lovenox) 40 mg DAILY SC Last administered on 12/30/18 08:51; Admin Dose 40 MG; Start 12/19/18 at 09:00 Guaifenesin (Robitussin Liquid Cup) 100 mg Q6H PRN PO COUGH Last administered on 12/24/18 15:14; Admin Dose 100 MG; Start 12/19/18 at 00:30 Acetaminophen/ Hydrocodone Bitart ([place] (5/325)) 1 tab Q6H PRN PO MODERATE PAIN LEVEL 4-6 Last administered on 12/20/18 07:29; Admin Dose 1 TAB; Start 12/19/18 at 00:30 Albuterol/ Ipratropium (Duoneb) 3 ml Q4H RESP THERAPY INH Last administered on 12/31/18 05:08; Admin Dose 3 ML; Start 12/19/18 at 01:00 Montelukast Sodium (Singulair) 10 mg QHS PO Last administered on 12/30/18 20: 30; Admin Dose 10 MG; Start 12/19/18 at 21:00 Nystatin (Nystatin Susp) 5 ml QID PO Last administered on 12/30/18 20:28; Admin Dose 5 ML; Start 12/19/18 at 09:00 Ondansetron HCl (Zofran Tab) 4 mg Q6H PRN PO NAUSEA AND/OR VOMITING Last administered on 12/19/18 20:22; Admin Dose 4 MG; Start 12/19/18 at 00:30 Pantoprazole (Protonix Tab) 40 mg DAILY@0600 PO Last administered on 12/31/18 05:39; Admin Dose 40 MG; Start 12/19/18 at 06:00 Tramadol HCl (Ultram) 50 mg Q6H PRN PO MODERATE PAIN LEVEL 4-6 Last administered on 12/29/18 04:42; Admin Dose 50 MG; Start 12/19/18 at 00:30 Lisinopril (Zestril) 20 mg BID PO Last administered on 12/30/18 20:31; Admin Dose 20 MG; Start 12/19/18 at 09:00 Calcium Carbonate (Tums) 1,000 mg Q4H PRN PO HEARTBURN; Start 12/19/18 at 01:00 Furosemide (Lasix) 20 mg DAILY@0600 IV Last administered on 12/31/18 05:39; Admin Dose 20 MG; Start 12/22/18 at 06:00 Phenol (Cepastat Lozenge) 1 lozenge Q1H PRN MT COUGH Last administered on 12/23/18 17:51; Admin Dose 1 LOZENGE; Start 12/23/18 at 18:00 Acetaminophen/ Hydrocodone Bitart ([place] (5/325)) 2 tab Q4H PRN PO MODERATE PAIN LEVEL 4-6 Last administered on 12/30/18 18:57; Admin Dose 2 TAB; Start 12/24/18 at 11:30 Lubiprostone (Amitiza) 16 mcg BID PO Last administered on 12/30/18 20:31; Admin Dose 16 MCG; Start 12/27/18 at 21:00 Ketorolac Tromethamine (Toradol) 15 mg Q6H PRN IV PAIN Last administered on 04:09; Admin Dose 15 MG; Start 12/30/18 at 13:00; Stop 01/02/19 at 12:59 Hydromorphone HCl (Dilaudid) 1 mg Q8 PRN IV SEVERE PAIN LEVEL 7-10; Start 12/30/18 at 15:00 Prednisone (Prednisone) 20 mg DAILY PO ; Start 12/31/18 at 09:00 Gabapentin (Neurontin) 100 mg TID PO Last administered on 12/30/18at 20:30; Admin Dose 100 MG; Start 12/30/18 at 21:00 Hydromorphone HCl (Dilaudid) 2 mg Q4H PRN PO SEVERE PAIN LEVEL 7-10 Last administered on 12/30/18 17:58; Admin Dose 2 MG; Start 12/30/18 at 15:00 Oxycodone HCl (Oxycontin) 10 mg TID PO Last administered on 12/30/18 20:36; Admin Dose 10 MG; Start 12/30/18 at 21:00 Calcitonin [place] (Miacalcin Inj) 100 units DAILY SC ; Start 12/30/18 at 20:30 Hydromorphone HCl (Dilaudid) 0.25 mg Q3H PRN IV SEVERE PAIN LEVEL 7-10 Last administered on 12/31/18at 05:39; Admin Dose 0.25 MG; Start 12/30/18 at 20:30 Allergies: Coded Allergies: levofloxacin (Verified Allergy, Severe, 10/30/18) lorazepam (Verified Allergy, Unknown, 10/28/18) Family History Significant Family History: COPD, hypertension Social History Alcohol Use: none Smoking Status: Former smoker Exam/Review of Systems Exam Vitals Vital Signs Date Temp Pulse Resp B/P (MAP) Pulse Ox O2 O2 Flow FiO2 Time Delivery Rate 12/31/18 83 18 95 Nasal 3.0 05:15 Cannula 12/31/18 98.6 120/82 01:23 (95) 12/29/18 28 16:57 Intake and Output 12/30/18 12/30/18 12/31/18 1515:00 23:00 07:00 IntakeIntake Total 400 ml BalanceBalance 400 ml Constitutional: alert, oriented, distress, obese Psych: anxiety Head: normocephalic, atraumatic Eyes: nl conjunctiva, EOMI, nl lids, nl sclera, PERRL ENMT: nl external ears & nose, nl lips & teeth, nl nasal mucosa & septum; No mucosa pink and moist, No intubated, No tympanic membranes, No other Neck: supple, non-tender Respiratory: diminished breath sounds, wheezing Cardiovascular: regular rate and rhythm, nl pulses; No bruits, No diastolic murmur, No edema, No gallop, No irregular rhythm, No jugular venous distention (JVD), No murmurs/extra sounds, No rub, No systolic murmur, No S3, No S4, No other Gastrointestinal: soft, nl liver, spleen, non-tender; No ascites, No bowel sounds, No distended, No firm, No hepatomegaly, No mass, No rebound or guarding, No splenomegaly, No surgical scars, No tender, No other Musculoskeletal: range of motion (limiteed in upper trunk) Neurological: LOOM DOFFER II-XII intact, nl mental status, nl speech, nl strength Results Result Diagram: 12/29/18 0423 12/30/18 1545 Results 24hrs Laboratory Tests Test 12/30/18 06:53 12/30/18 15:45 Lab Scanned Report REFERENCE LAB Sodium Level 140 Potassium Level 4.7 Chloride Level 100 Carbon Dioxide Level 36 H Anion Gap 4 L Blood Urea Nitrogen 26 H Creatinine 0.64 Est Glomerular Filtrat Rate mL/min > 60 Glucose Level 164 Calcium Level 9.5 Medications Medication Current Medications Acetaminophen (Tylenol Tab) 650 mg Q4 PRN PO prn; Start 12/19/18 at 00:30 Albuterol (Proventil 0.083% (Neb)) 2.5 mg Q6H RESP THERAPY PRN NEB SHORTNESS OF BREATH/WHEEZING Last administered on 12/23/18 18:15; Admin Dose 2.5 MG; Start 12/19/18 at 00:30 Benzonatate (Tessalon) 100 mg BID PRN PO prn Last administered on 12/19/18 20:22; Admin Dose 100 MG; Start 12/19/18 at 00:30 Budesonide (Pulmicort (Neb)) 0.5 mg BID RESP THERAPY INH Last administered on 12/30/18 21:35; Admin Dose 0.5 MG; Start 12/19/18 at 09:00 Docusate Sodium (Colace) 100 mg BID PO Last administered on 12/30/18 20:30; Admin Dose 100 MG; Start 12/19/18 at 09:00 Enoxaparin Sodium (Lovenox) 40 mg DAILY SC Last administered on 12/30/18 08:51; Admin Dose 40 MG; Start 12/19/18 at 09:00 Guaifenesin (Robitussin Liquid Cup) 100 mg Q6H PRN PO COUGH Last administered on 12/24/18 15:14; Admin Dose 100 MG; Start 12/19/18 at 00:30 Acetaminophen/ Hydrocodone Bitart ([place] (5/325)) 1 tab Q6H PRN PO MODERATE PAIN LEVEL 4-6 Last administered on 12/20/18 07:29; Admin Dose 1 TAB; Start 12/19/18 at 00:30 Albuterol/ Ipratropium (Duoneb) 3 ml Q4H RESP THERAPY INH Last administered on 12/31/18 05:08; Admin Dose 3 ML; Start 12/19/18 at 01:00 Montelukast Sodium (Singulair) 10 mg QHS PO Last administered on 12/30/18 20:30; Admin Dose 10 MG; Start 12/19/18 at 21:00 Nystatin (Nystatin Susp) 5 ml QID PO Last administered on 12/30/18 20:28; Admin Dose 5 ML; Start 12/19/18 at 09:00 Ondansetron HCl (Zofran Tab) 4 mg Q6H PRN PO NAUSEA AND/OR VOMITING Last administered on 12/19/18 20:22; Admin Dose 4 MG; Start 12/19/18 at 00:30 Pantoprazole (Protonix Tab) 40 mg DAILY@0600 PO Last administered on 12/31/18 05:39; Admin Dose 40 MG; Start 12/19/18 at 06:00 Tramadol HCl (Ultram) 50 mg Q6H PRN PO MODERATE PAIN LEVEL 4-6 Last administered on 12/29/18 04:42; Admin Dose 50 MG; Start 12/19/18 at 00:30 Lisinopril (Zestril) 20 mg BID PO Last administered on 12/30/18 20:31; Admin Dose 20 MG; Start 12/19/18 at 09:00 Calcium Carbonate (Tums) 1,000 mg Q4H PRN PO HEARTBURN; Start 12/19/18 at 01:00 Furosemide (Lasix) 20 mg DAILY@0600 IV Last administered on 12/31/18 05:39; Ad min Dose 20 MG; Start 12/22/18 at 06:00 Phenol (Cepastat Lozenge) 1 lozenge Q1H PRN MT COUGH Last administered on 12/23/18 17:51; Admin Dose 1 LOZENGE; Start 12/23/18 at 18:00 Acetaminophen/ Hydrocodone Bitart ([place] (5/325)) 2 tab Q4H PRN PO MODERATE PAIN LEVEL 4-6 Last administered on 12/30/18 18:57; Admin Dose 2 TAB; Start 12/24/18 at 11:30 Lubiprostone (Amitiza) 16 mcg BID PO Last administered on 12/30/18 20:31; Admin Dose 16 MCG; Start 12/27/18 at 21:00 Ketorolac Tromethamine (Toradol) 15 mg Q6H PRN IV PAIN Last administered on 12/31/18at 04:09; Admin Dose 15 MG; Start 12/30/18 at 13:00; Stop 01/02/19 at 12:59 Hydromorphone HCl (Dilaudid) 1 mg Q8 PRN IV SEVERE PAIN LEVEL 7-10; Start 12/30/18 at 15:00 Prednisone (Prednisone) 20 mg DAILY PO ; Start 12/31/18 at 09:00 Gabapentin (Neurontin) 100 mg TID PO Last administered on 12/30/18at 20:30; Admin Dose 100 MG; Start 12/30/18 at 21:00 Hydromorphone HCl (Dilaudid) 2 mg Q4H PRN PO SEVERE PAIN LEVEL 7-10 Last administered on 12/30/18at 17:58; Admin Dose 2 MG; Start 12/30/18 at 15:00 Oxycodone HCl (Oxycontin) 10 mg TID PO Last administered on 12/30/18at 20:36; Admin Dose 10 MG; Start 12/30/18 at 21:00 Calcitonin [place] (Miacalcin Inj) 100 units DAILY SC ; Start 12/30/18 at 20:30 Hydromorphone HCl (Dilaudid) 0.25 mg Q3H PRN IV SEVERE PAIN LEVEL 7-10 Last administered on 12/31/18at 05:39; Admin Dose 0.25 MG; Start 12/30/18 at 20:30 AMY TREJO December 31, 2018 06:27
[2018-12-31] MEDS: oxyCODONE (CR) 10 MG TAB [oxyCONTIN] PO SCH ×2 (06:54→12:12)
[2018-12-31 07:51] VITALS: BP 95/52; PULSE 86; RESP 20
[2018-12-31] MEDS: BUDESONIDE (NEB) 0.5MG/2ML AMP INH SCH (08:24)
[2018-12-31] MEDS: CALCITONIN SALMON INJ 200 UNITS/ML SYG SC SCH (08:46)
[2018-12-31] MEDS: DOCUSATE SODIUM 100 MG CAP PO SCH (08:47)
[2018-12-31] MEDS: NYSTATIN SUSP 5 ML CUP PO SCH (08:47)
[2018-12-31] MEDS: LUBIPROSTONE 8 MCG CAPSULE PO SCH (08:47)
[2018-12-31] MEDS: GABAPENTIN 100 MG CAP PO SCH ×2 (08:47→12:12)
[2018-12-31] MEDS: LISINOPRIL 20 MG TAB PO SCH (08:47)
[2018-12-31] MEDS: ENOXAPARIN 100 MG/ML SYG SC SCH (08:51)
[2018-12-31] MEDS ORDERED: predniSONE 10 MG TAB PO SCH (09:00)
--- NOTE | 2018-12-31 10:10 | PN ---
Date/Time of Note Date/Time of Note DATE: 12/31/18 TIME: 10:09 Assessment/Plan VTE Prophylaxis Risk score (from Nsg)>0 risk: 4 SCD applied (from Nsg): No SCD contraindicated: low risk/ambulating Pharmacological prophylaxis: NA/contraindicated Pharm contraindication: low risk/ambulating Lines/Catheters IV Catheter Type (from Nrsg): [place] Urinary Cath still in place: No Assessment/Plan Hospital Course 1 Low back pain on the left with the CT findings of possible T12 fracture. at OSH now with spinal x-rays here patient had T6 and T7 compression fractures evident also on the CT of the thoracic spine>? No history of any trauma, path ological ? Osteoporosis CT spine Compression fracture of the T7 vertebral body with 75% anterior height loss, appearing likely acute. There is mild retropulsion of the upper T7 vertebral body, with mild appearing associated central canal stenosis. Mild bilateral foraminal stenosis at T7-T8 related to vertebral body height loss. She has been on chronic steroids because of COPD 2. Shortness of breath likely secondary to chronic obstructive pulmonary disease exacerbation. 3. History of chronic hypoxia on home oxygen. 4. Morbid obesity. 5. History of chronic obstructive pulmonary disease. 6. Hyperlipidemia. 7. History of migraine. Assessment/Plan -Was not able to tolerate MRI scan procedure again, despite increased dose of morphine, -cw oxycontin/dilaudid po cw gabapentin dc planning to snif Result Diagram: 12/29/18 0423 12/30/18 1545 Results 24hrs Laboratory Tests Test 12/30/18 15:45 Sodium Level 140 Potassium Level 4.7 Chloride Level 100 Carbon Dioxide Level 36 H Anion Gap 4 L Blood Urea Nitrogen 26 H Creatinine 0.64 Est Glomerular Filtrat Rate mL/min > 60 Glucose Level 164 Calcium Level 9.5 Subjective 24 Hr Interval Summary Free Text/Dictation feels better pain better now Exam/Review of Systems Exam Vitals Vital Signs Date Temp Pulse Resp B/P (MAP) Pulse Ox O2 O2 Flow FiO2 Time Delivery Rate 12/31/18 84 20 96 Nasal 3.0 08:35 Cannula 12/31/18 98.6 95/52 (66) 07:51 12/29/18 28 16:57 Intake and Output 12/30/18 12/30/18 12/31/18 1515:00 23:00 07:00 IntakeIntake Total 400 ml BalanceBalance 400 ml Exam Constitutional: alert, oriented Psych: no complaints Respiratory: diminished breath sounds, labored breathing, wheezing Cardiovascular: regular rate and rhythm Gastrointestinal: soft Musculoskeletal: muscle weakness, other (paravertebral spasm) Skin: ecchymosis Results Results 24hrs Laboratory Tests Test 12/30/18 15:45 Sodium Level 140 Potassium Level 4.7 Chloride Level 100 Carbon Dioxide Level 36 H Anion Gap 4 L Blood Urea Nitrogen 26 H Creatinine 0.64 Est Glomerular Filtrat Rate mL/min > 60 Glucose Level 164 Calcium Level 9.5 Medications Medication Current Medications Acetaminophen (Tylenol Tab) 650 mg Q4 PRN PO prn; Start 12/19/18 at 00:30 Albuterol (Proventil 0.083% (Neb)) 2.5 mg Q6H RESP THERAPY PRN NEB SHORTNESS OF BREATH/WHEEZING Last administered on 12/23/18 18:15; Admin Dose 2.5 MG; Start 12/19/18 at 00:30 Benzonatate (Tessalon) 100 mg BID PRN PO prn Last administered on 12/19/18 20:22; Admin Dose 100 MG; Start 12/19/18 at 00:30 Budesonide (Pulmicort (Neb)) 0.5 mg BID RESP THERAPY INH Last administered on 12/31/18 08:24; Admin Dose 0.5 MG; Start 12/19/18 at 09:00 Docusate Sodium (Colace) 100 mg BID PO Last administered on 12/31/18 08:47; Admin Dose 100 MG; Start 12/19/18 at 09:00 Enoxaparin Sodium (Lovenox) 40 mg DAILY SC Last administered on 12/31/18 08:51; Admin Dose 40 MG; Start 12/19/18 at 09:00 Guaifenesin (Robitussin Liquid Cup) 100 mg Q6H PRN PO COUGH Last administered on 12/24/18 15:14; Admin Dose 100 MG; Start 12/19/18 at 00:30 Albuterol/ Ipratropium (Duoneb) 3 ml Q4H RESP THERAPY INH Last administered on 12/31/18 08:24; Admin Dose 3 ML; Start 12/19/18 at 01:00 Montelukast Sodium (Singulair) 10 mg QHS PO Last administered on 12/30/18 20:30; Admin Dose 10 MG; Start 12/19/18 at 21:00 Nystatin (Nystatin Susp) 5 ml QID PO Last administered on 12/31/18 08:47; Admin Dose 5 ML; Start 12/19/18 at 09:00 Ondansetron HCl (Zofran Tab) 4 mg Q6H PRN PO NAUSEA AND/OR VOMITING Last administered on 12/19/18 20:22; Admin Dose 4 MG; Start 12/19/18 at 00:30 Pantoprazole (Protonix Tab) 40 mg DAILY@0600 PO Last administered on 12/31/18 05:39; Admin Dose 40 MG; Start 12/19/18 at 06:00 Lisinopril (Zestril) 20 mg BID PO Last administered on 12/30/18 20:31; Admin Dose 20 MG; Start 12/19/18 at 09:00 Calcium Carbonate (Tums) 1,000 mg Q4H PRN PO HEARTBURN; Start 12/19/18 at 01:00 Furosemide (Lasix) 20 mg DAILY@0600 IV Last administered on 12/31/18 05:39; Admin Dose 20 MG; Start 12/22/18 at 06:00 Phenol (Cepastat Lozenge) 1 lozenge Q1H PRN MT COUGH Last administered on 12/23/18 17:51; Admin Dose 1 LOZENGE; Start 12/23/18 at 18:00 Acetaminophen/ Hydrocodone Bitart ([place] (5/325)) 2 tab Q4H PRN PO MODERATE PAIN LEVEL 4-6 Last administered on 12/30/18 18:57; Admin Dose 2 TAB; Start 12/24/18 at 11:30 Lubiprostone (Amitiza) 16 mcg BID PO Last administered on 12/31/18 08:47; Admin Dose 16 MCG; Start 12/27/18 at 21:00 Ketorolac Tromethamine (Toradol) 15 mg Q6H PRN IV PAIN Last administered on 12/31/18 04:09; Admin Dose 15 MG; Start 12/30/18 at 13:00; Stop 01/02/19 at 12:59 Prednisone (Prednisone) 20 mg DAILY PO Last administered on 12/31/18 08:47; Admin Dose 20 MG; Start 12/31/18 at 09:00 Gabapentin (Neurontin) 100 mg TID PO Last administered on 12/31/18 08:47; Admin Dose 100 MG; Start 12/30/18 at 21:00 Hydromorphone HCl (Dilaudid) 2 mg Q4H PRN PO SEVERE PAIN LEVEL 7-10 Last administered on 12/30/18 17:58; Admin Dose 2 MG; Start 12/30/18 at 15:00 Oxycodone HCl (Oxycontin) 10 mg TID PO Last administered on 12/31/18 06:54; Admin Dose 10 MG; Start 12/30/18 at 21:00 Calcitonin [place] (Miacalcin Inj) 100 units DAILY SC Last administered on 12/31/18 08:46; Admin Dose 100 UNITS; Start 12/30/18 at 20:30 Hydromorphone HCl (Dilaudid) 0.25 mg Q3H PRN IV SEVERE PAIN LEVEL 7-10 Last administered on 12/31/18 08:46; Admin Dose 0.25 MG; Start 12/30/18 at 20:30 AMERICO MCCLAIN MD December 31, 2018 10:10
--- NOTE | 2018-12-31 10:16 | PDOCDIS ---
Discharge Instructions DIAGNOSIS Discharge Diagnosis t7 fracture CONDITION [id number] Patient Condition: [id number] Fair HOME CARE INSTRUCTIONS: [id number] Diet Instructions: [id number] Low Fat /Cholesterol [id number] Special Diet: [id number] l4Bd Activity Restrictions: [id number] Slowly Increase Activity Rest between Activity Avoid heavy lifting FOLLOW UP/APPOINTMENTS Follow-up Plan fu PT t spine brace fu dr LANDAVERDE IN 2-[address] MALAVE IN 2-3 WEEKS AMERICO MCCLAIN MD December 31, 2018 10:16
[2018-12-31] MEDS: HYDROmorphONE 2 MG TAB PO PRN ×2 (12:49→16:50)
[2019-01-01] MEDS ORDERED: LOSA25TA12 PO (16:35)
[2019-01-01] MEDS ORDERED: BENA20TA4 PO (16:39)
== END 2018-12-31 17:06 | DRG 543 ==
LOC: TEL 21:31 → MS1 12-22 13:26
PROVIDERS: ADMIT Internal Medicine Nephrology; ATTEND Internal Medicine
PROC: 4A033R1 Measurement of Arterial Saturation, Peripheral, Percutaneous Approach (ICD-10-PCS; principal; 2018-12-19)
DX: M48.54XA Collapsed vertebra, not elsewhere classified, thoracic region, initial encounter for fracture (principal); J44.1 Chronic obstructive pulmonary disease with (acute) exacerbation; Z68.41 Body mass index [BMI] 40.0-44.9, adult; J96.11 Chronic respiratory failure with hypoxia; M48.04 Spinal stenosis, thoracic region; E66.01 Morbid (severe) obesity due to excess calories; E78.5 Hyperlipidemia, unspecified; G47.33 Obstructive sleep apnea (adult) (pediatric); I11.0 Hypertensive heart disease with heart failure; I50.813 Acute on chronic right heart failure; E78.00 Pure hypercholesterolemia, unspecified; Z79.52 Long term (current) use of systemic steroids; Z87.891 Personal history of nicotine dependence; Z99.81 Dependence on supplemental oxygen
CPT/HCPCS: 36600; 71045; 71046; 72072; 72128; 78300; 80048; 82803; 83036; 83735; 84100; 85025; 94640; 94664; 97116; 97162; 97530; J1170; J1650; J1885; J1940; J2060; J2270; J7512; L0464

== ENCOUNTER 2018-12-31 23:04 | Emergency (ER) | payer OTHER ==
[~2018-12-31] VITALS: Ht 154.9 cm; Wt 76.0 kg
[~2018-12-31 23:04] MED LIST changes: +ACET500C5 PO; +BENZ-6 PO; +BUDE1AMP INHALATION; +CALC600T24 PO; +DOCU-159 PO; +ENOX100D2 SC; +GUAI-637 PO; +HYDR-4011 PO; +IPRA3AMP29 INHALATION; +MONT10TA21 PO; +NYST1000 PO; +ONDA4TAB13 PO; +PANT40TA3 PO; +TRAM50TA2 PO; +UDATA PO; +[UNRECOGNIZED DRUG - CODE] IV; +[UNRECOGNIZED DRUG - CODE] PO
[2018-12-31 23:12] VITALS: Ht 154.9 cm; Wt 76.0 kg
[2018-12-31] MEDS ORDERED: HYDROmorphONE 2 MG/ML SYG IM STA (23:27)
[2019-01-01 00:31] VITALS: BP 120/76; PULSE 82; RESP 19
[2019-01-01] MEDS ORDERED: HYDROmorphONE 2 MG/ML SYG IM STA (01:16)
--- NOTE | 2019-01-01 01:32 | ERD ---
ER Documentation Chief Complaint Chief Complaint chronic back pain uncontrolled r/t new SNF not able to get RX's filled HPI 53-year-old female was discharged to nursing home facility today is back in by rescue complains of chronic back pain. Apparently her nursing home facility did not have her medications and were out of them so they sent her here for pain control. Patient denies any new trauma. Denies any other current issues. No bowel or bladder incontinence. Pain is moderate to severe intensity for the patient. ROS All systems reviewed and are negative except as per history of present illness. Medications Home Meds Active Scripts Amoxicillin/Potassium Clav (Amox-Clav 875-125 mg Tablet) 875-125 mg Tab, 1 TAB PO BID for 7 Days, #20 TAB Prov:AMERICO MCCLAIN MD 11/02/18 Sulfamethoxazole/Trimethoprim* (Bactrim Ds* Tablet) 1 Each Tablet, 1 TAB PO BID for 7 Days, TAB Prov:AMERICO MCCLAIN MD 11/02/18 [Ipratropium 0.02% (Neb)] 0.5 MG/2.5 ML NEBU No Conflict Check, 0.5 MG HHN Q6 for 30 Days Prov:SINGH ALY 11/02/18 Albuterol Sulfate* (Albuterol Sulfate* Neb) 0.083%-3 Ml Neb, 2.5 MG HHN Q6 for 30 Days Prov:SINGH ALY 11/02/18 Losartan-Hydrochlorothiazide (Losartan-HCTZ) 50-12.5 Mg Tab, 1 TAB PO DAILY for 30 Days, TAB Prov:SINGH ALY 11/01/18 Mupirocin* (Bactroban*) 2% -22 Gram Oint...g., 14 APPLIC TOP TID, #1 TUB SITE OF APPLICATION: Prov:SINGH ALY 11/01/18 Prednisone* (Prednisone*) 10 Mg Tab, 30 MG PO DAILY for 5 Days, TAB Prov:SINGH ALY 11/01/18 Reported Medications Tramadol HCl (Tramadol HCl) 50 Mg Tablet, 50 MG PO Q6H PRN for PAIN, #120 TAB 12/18/18 Ondansetron Hcl* (Zofran*) 4 Mg Tab, 4 MG PO Q6 PRN for NAUSEA AND OR VOMITING, TAB 12/18/18 Hydroxyzine Hcl* (Atarax*) 2 Mg/Ml Syrup, 25 MG PO Q6H PRN for ITCHING, ML 12/18/18 Hydrocodone/Acetaminophen ([place] 5-325 Tablet) 1 Each Tablet, 2 EACH PO Q6 PRN for prn, TAB 12/18/18 Hydrocodone/Acetaminophen ([place] 5-325 Tablet) 1 Each Tablet, 1 EACH PO Q6 PRN for prn, TAB 12/18/18 Guaifenesin* (Robitussin*) 100 Mg/5 Ml Syrup, 100 MG PO Q6H PRN for COUGH, ML 12/18/18 Calcium Carbonate* (Calcium Carbonate*) 600 MG Ca Tab, 1000 MG PO Q4 PRN for prn, TAB 12/18/18 Benzonatate* (Tessalon Perle*) 100 Mg Capsule, 100 MG PO Q4 PRN for prn, CAP 12/18/18 Albuterol Sulfate* (Albuterol Sulfate* Neb) 0.083%-3 Ml Neb, 2.5 MG NEB Q6 PRN for prn, #30 VIAL 12/18/18 Acetaminophen* (Tylophen*) 500 Mg Capsule, 650 MG PO Q4 PRN for prn, TAB 12/18/18 Sodium Chloride* (1/2 NS*) 500 Ml Iv.soln., 1000 ML IV, EA 12/18/18 Prednisone (Deltasone) 20 Mg Tablet, 40 MG PO DAILY, TAB 12/18/18 Pantoprazole* (Protonix*) 40 Mg Tablet.dr, 40 MG PO DAILY, TAB 12/18/18 Nystatin (Nystatin) 100,000 Unit/1 Ml Oral.susp, 5 ML PO QID, #60 ML 12/18/18 Montelukast Sodium* (Singulair*) 10 Mg Tablet, 10 MG PO QHS, #30 TAB 12/18/18 Enoxaparin Sodium (Enoxaparin Sodium) 100 Mg/1 Ml Syringe, 40 MG SC DAILY, SYR 12/18/18 Docusate Sodium* (Docusate Sodium*) 100 Mg Capsule, 100 MG PO BID, #60 CAP 12/18/18 Budesonide* (Pulmicort*) 1 Mg/2 Ml Ampul.neb, 0.5 MG INHALATION BID, #60 AMP 12/18/18 Ipratropium-Albuterol (Ipratropium-Albuterol) 0.5-3 Mg/3 Ml Ampul.neb, 3 ML INHALATION Q4, #30 VIAL 12/18/18 Montelukast Sodium* (Montelukast Sodium*) 10 Mg Tablet, 10 MG PO QHS, #30 TAB 10/28/18 Docusate Sodium* (Colace*) 100 Mg Capsule, 100 MG PO BID, #60 CAP 10/28/18 Albuterol Sulfate* (Albuterol Sulfate* Neb) 0.083%-3 Ml Neb, 2.5 MG NEB Q6, #30 VIAL 10/28/18 Budesonide* (Budesonide*) 0.5 Mg/2 Ml Ampul.neb, 0.5 MG INHALATION BID, AMP 10/28/18 Allergies Allergies: Coded Allergies: levofloxacin (Verified Allergy, Severe, 10/30/18) lorazepam (Verified Allergy, Unknown, 10/28/18) PMhx/Soc History of Surgery: Yes (, Left foot sx) Anesthesia Reaction: No Hx Neurological Disorder: Yes (Migraines) Hx Respiratory Disorders: Yes (COPD,Asthma) Hx Cardiac Disorders: Yes (HPN) Hx Psychiatric Problems: No Hx Miscellaneous Medical Probl: Yes (ASTHMA, COPD, HTN , MORBID OBESITY, H,OF MIGRAINES.) Hx Alcohol Use: No Hx Substance Use: No Hx Tobacco Use: No Physical Exam Vitals Vital Signs Date Temp Pulse Resp B/P (MAP) Pulse Ox O2 O2 Flow FiO2 Time Delivery Rate 01/01/19 82 19 120/76 94 Nasal 00:31 (91) Cannula 01/01/19 82 17 121/69 92 Nasal 00:00 (86) Cannula 12/31/18 98.6 90 20 147/92 89 23:12 (110) Physical Exam Const: No acute distress Head: Atraumatic Eyes: Normal Conjunctiva ENT: Normal External Ears, Nose and Mouth. Neck: Full range of motion. No meningismus. Resp: Clear to auscultation bilaterally Cardio: Regular rate and rhythm, no murmurs Abd: Soft, non tender, non distended. Normal bowel sounds Skin: No petechiae or rashes Back: No midline or flank tenderness Ext: No cyanosis, or edema Neur: Awake and alert Psych: Normal Mood and Affect Results 24 hrs Current Medications Medications Dose Sig/Vikas Start Time Status Last (Trade) Ordered Route PRN Stop Time Admin Dose Reason Admin 2 mg ONCE STAT 12/31/18 DC 12/31/18 Hydromorphone IM 23:27 23:34 HCl 12/31/18 23:28 (Dilaudid) 2 mg ONCE STAT 01/01/19 DC Hydromorphone IM 01:16 HCl 01/01/19 01:17 (Dilaudid) Procedures/MDM Patient's musculoskeletal symptoms have stabilized while they have been evaluated in the department and are appropriate for outpatient work up. No evidence of cauda equina, cord compression, infiltrative, or infectious etiology. Departure Diagnosis: Primary Impression: Back pain Back pain location: back pain in unspecified location Chronicity: unspecified Back pain laterality: unspecified Qualified Codes: M54.9 - Dorsalgia, unspecified Condition: Stable Patient Instructions: Back Pain (Acute Or Chronic) JOSE GOLDEN January 01, 2019 01:32
[2019-01-01] MEDS ORDERED: LOSA25TA12 PO (16:35)
[2019-01-01] MEDS ORDERED: BENA20TA4 PO (16:39)
== END 2019-01-01 02:43 | disposition home or self-care (01) ==
LOC: E/R 23:04
DX: M54.9 Dorsalgia, unspecified (principal); J44.9 Chronic obstructive pulmonary disease, unspecified; I10 Essential (primary) hypertension; E66.01 Morbid (severe) obesity due to excess calories; Z68.31 Body mass index [BMI] 31.0-31.9, adult
CPT/HCPCS: 96372; J1170; Z7502

== ENCOUNTER 2019-01-01 16:05 | Observation (INO) | payer OTHER ==
[~2019-01-01] VITALS: Ht 167.6 cm; Wt 100.0 kg
[2019-01-01 16:12] VITALS: Ht 167.6 cm; Wt 100.0 kg
[2019-01-01] MEDS ORDERED: LOSA25TA12 PO (16:35)
[2019-01-01] MEDS ORDERED: BENA20TA4 PO (16:39)
[2019-01-01] MEDS ORDERED: oxyCODONE (CR) 10 MG TAB [oxyCONTIN] PO ONE (17:00)
--- NOTE | 2019-01-01 17:19 | ERD ---
ER Documentation Chief Complaint Chief Complaint BIB BLS AMBULANCE FOR EVAL OF BACK PAIN. SEEN YESTERDAY FOR SAME HPI 53-year-old female with a recent history of thoracic spinal fractures of unclear etiology sent to residential presenting back from her residential complaining of severe back pain that is uncontrolled with the Dilaudid she is receiving at the nursing facility. She was supposed also be receiving OxyContin, however the residential has been telling her that they do not have this medication yet. She states that she is not getting the appropriate pain management there and she is very upset, prompting her to call 911 today. Her pain is in her mid back, radiating down to her lower back. No lower extremity numbness or tingling. She is urinating normally and having normal bowel movements without constipation. No incontinence. Left upper extremity with occasional tingling as well. ROS All systems reviewed and are negative except as per history of present illness. Medications Home Meds Reported Medications Benazepril Hcl* (Benazepril Hcl*) 20 Mg Tablet, 20 MG PO BID, #60 TAB 01/01/19 Tramadol HCl (Tramadol HCl) 50 Mg Tablet, 50 MG PO Q6H PRN for PAIN, #120 TAB 12/18/18 Ondansetron Hcl* (Zofran*) 4 Mg Tab, 4 MG PO Q6 PRN for NAUSEA AND OR VOMITING, TAB 12/18/18 Hydroxyzine Hcl* (Atarax*) 2 Mg/Ml Syrup, 25 MG PO Q6H PRN for ITCHING, ML 12/18/18 Hydrocodone/Acetaminophen ([place] 5-325 Tablet) 1 Each Tablet, 2 EACH PO Q6 PRN for prn, TAB 12/18/18 Guaifenesin* (Robitussin*) 100 Mg/5 Ml Syrup, 100 MG PO Q6H PRN for COUGH, ML 12/18/18 Calcium Carbonate* (Calcium Carbonate*) 600 MG Ca Tab, 1000 MG PO Q4 PRN for prn, TAB 12/18/18 Benzonatate* (Tessalon Perle*) 100 Mg Capsule, 100 MG PO Q4 PRN for prn, CAP 12/18/18 Albuterol Sulfate* (Albuterol Sulfate* Neb) 0.083%-3 Ml Neb, 2.5 MG NEB Q6 PRN for prn, #30 VIAL 12/18/18 Acetaminophen* (Tylophen*) 500 Mg Capsule, 650 MG PO Q4 PRN for prn, TAB 12/18/18 Sodium Chloride* (1/2 NS*) 500 Ml Iv.soln., 1000 ML IV, EA 12/18/18 Prednisone (Deltasone) 20 Mg Tablet, 40 MG PO DAILY, TAB 12/18/18 Pantoprazole* (Protonix*) 40 Mg Tablet.dr, 40 MG PO DAILY, TAB 12/18/18 Nystatin (Nystatin) 100,000 Unit/1 Ml Oral.susp, 5 ML PO QID, #60 ML 12/18/18 Montelukast Sodium* (Singulair*) 10 Mg Tablet, 10 MG PO QHS, #30 TAB 12/18/18 Enoxaparin Sodium (Enoxaparin Sodium) 100 Mg/1 Ml Syringe, 40 MG SC DAILY, SYR 12/18/18 Docusate Sodium* (Docusate Sodium*) 100 Mg Capsule, 100 MG PO BID, #60 CAP 12/18/18 Budesonide* (Pulmicort*) 1 Mg/2 Ml Ampul.neb, 0.5 MG INHALATION BID, #60 AMP 12/18/18 Ipratropium-Albuterol (Ipratropium-Albuterol) 0.5-3 Mg/3 Ml Ampul.neb, 3 ML INHALATION Q4, #30 VIAL 12/18/18 Discontinued Reported Medications Losartan Potassium* (Losartan Potassium*) 25 Mg Tablet, 12.5 MG PO DAILY, TAB 01/01/19 Hydrocodone/Acetaminophen ([place] 5-325 Tablet) 1 Each Tablet, 1 EACH PO Q6 PRN for prn, TAB 12/18/18 Montelukast Sodium* (Montelukast Sodium*) 10 Mg Tablet, 10 MG PO QHS, #30 TAB 10/28/18 Docusate Sodium* (Colace*) 100 Mg Capsule, 100 MG PO BID, #60 CAP 10/28/18 Albuterol Sulfate* (Albuterol Sulfate* Neb) 0.083%-3 Ml Neb, 2.5 MG NEB Q6, #30 VIAL 10/28/18 Budesonide* (Budesonide*) 0.5 Mg/2 Ml Ampul.neb, 0.5 MG INHALATION BID, AMP 10/28/18 Discontinued Scripts Amoxicillin/Potassium Clav (Amox-Clav 875-125 mg Tablet) 875-125 mg Tab, 1 TAB PO BID for 7 Days, #20 TAB Prov:AMERICO CHEN MD 11/02/18 Sulfamethoxazole/Trimethoprim* (Bactrim Ds* Tablet) 1 Each Tablet, 1 TAB PO BID for 7 Days, TAB Prov:AMERICO CHEN MD 11/02/18 [Ipratropium 0.02% (Neb)] 0.5 MG/2.5 ML NEBU No Conflict Check, 0.5 MG HHN Q6 for 30 Days Prov:SINGH ALY 11/02/18 Albuterol Sulfate* (Albuterol Sulfate* Neb) 0.083%-3 Ml Neb, 2.5 MG HHN Q6 for 30 Days Prov:SINGH ALY 11/02/18 Losartan-Hydrochlorothiazide (Losartan-HCTZ) 50-12.5 Mg Tab, 1 TAB PO DAILY for 30 Days, TAB Prov:SINGH ALY 11/01/18 Mupirocin* (Bactroban*) 2% -22 Gram Oint...g., 14 APPLIC TOP TID, #1 TUB SITE OF APPLICATION: Prov:SINGH ALY 11/01/18 Prednisone* (Prednisone*) 10 Mg Tab, 30 MG PO DAILY for 5 Days, TAB Prov:SINGH ALY 11/01/18 Allergies Allergies: Coded Allergies: levofloxacin (Verified Allergy, Severe, 01/01/19) lorazepam (Verified Allergy, Unknown, 01/01/19) PMhx/Soc History of Surgery: Yes (, Left foot sx) Anesthesia Reaction: No Hx Neurological Disorder: Yes (Migraines) Hx Respiratory Disorders: Yes (COPD,Asthma) Hx Cardiac Disorders: Yes (HPN) Hx Psychiatric Problems: No Hx Miscellaneous Medical Probl: Yes (ASTHMA, COPD, HTN , MORBID OBESITY, H,OF MIGRAINES.) Hx Alcohol Use: No Hx Substance Use: No Hx Tobacco Use: No FmHx Family History: No diabetes Physical Exam Vitals Vital Signs Date Temp Pulse Resp B/P (MAP) Pulse Ox O2 O2 Flow FiO2 Time Delivery Rate 01/01/19 98.2 90 16 125/68 99 16:12 (87) Physical Exam Const: Obese, appears to be in severe pain Head: Atraumatic Eyes: Normal Conjunctiva ENT: Normal External Ears, Nose and Mouth. Neck: Full range of motion. No meningismus. Resp: Clear to auscultation bilaterally Cardio: Regular rate and rhythm, no murmurs Abd: Soft, non tender, non distended. Normal bowel sounds Skin: No petechiae or rashes Back: Midline thoracic tenderness in the lower thoracic spine. Paraspinal muscle tenderness bilaterally in the thoracic area. No lumbar spine tenderness. Ext: No cyanosis, or edema Neur: Awake and alert, oriented, normal speech, strength and sensations grossly intact in all 4 extremities. Psych: Normal Mood and Affect Results 24 hrs Current Medications Medications Dose Sig/Vikas Start Time Status Last (Trade) Ordered Route PRN Stop Time Admin Dose Reason Admin Oxycodone 10 mg ONCE ONCE 01/01/19 DC 01/01/19 HCl PO 17:00 17:14 (Oxycontin) 01/01/19 17:01 Ondansetron 4 mg BRIDGE ORDER 01/01/19 HCl (Zofran PRN IV 18:30 Inj) NAUSEA/VOMITI 01/02/19 18:29 NG 650 mg ER BRIDGE 01/01/19 Acetaminophen PRN PO 18:30 (Tylenol .MILD PAIN 01/02/19 18:29 Tab) 1-3 OR TEMP Ondansetron 4 mg ONCE STAT 01/01/19 DC HCl (Zofran IV 18:08 Inj) 01/01/19 18:09 Ketamine 30 mg ONCE STAT 01/01/19 DC HCl IV 18:08 (Ketamine 01/01/19 18:09 HCl) Procedures/MDM EMERGENT LABS AND DIAGNOSTIC STUDIES: ] Initial Nursing notes reviewed. Previous Medical Records requested via the Electronic Health Record. EMERGENCY DEPARTMENT COURSE / MEDICAL DECISION MAKING: Patient is presenting with uncontrolled back pain at her longterm facility. Vitals are unremarkable. No neurologic deficits on exam. Patient is refusing to go back to her longterm facility as her pain is not well controlled. Patient will be admitted for pain control. Accepting Care Team: Current data and ongoing care discussed. Time: Time of admission Primary Provider: Dr. Chen Departure Diagnosis: Primary Impression: Intractable back pain Condition: FLAVIA Coelho MD January 01, 2019 17:19
[2019-01-01] MEDS ORDERED: KETAMINE HCL (50 MG/ML) 1ml syringe IV STA (18:08)
[2019-01-01] MEDS ORDERED: ONDANSETRON 4 MG INJ IV STA (18:08)
[2019-01-01] MEDS ORDERED: ACETAMINOPHEN 325 MG TAB PO PRN (18:30)
[2019-01-01] MEDS ORDERED: ONDANSETRON 4 MG INJ IV PRN (18:30)
[2019-01-01] MEDS ORDERED: HYDROmorphONE 2 MG TAB PO ONE (23:00)
[2019-01-02] MEDS ORDERED: oxyCODONE (CR) 10 MG TAB [oxyCONTIN] PO PRN
[2019-01-02] MEDS ORDERED: HYDROmorphONE 1 MG/ML SYG IV PRN
[2019-01-02 00:40] VITALS: BP 162/72; PULSE 92; RESP 16
[2019-01-02] MEDS ORDERED: hydrOXYzine HCL 25 MG TAB PO PRN (02:00)
[2019-01-02] MEDS ORDERED: ALBUTEROL 0.083% (NEB) 2.5 MG/3 ML AMP NEB PRN (02:00)
[2019-01-02] MEDS ORDERED: ACETAMINOPHEN 500 MG TAB PO PRN (02:00)
[2019-01-02] MEDS ORDERED: hydrOXYzine HCL 2 MG/ML 5ML CUP PO PRN (02:00)
[2019-01-02] MEDS ORDERED: BENZONATATE 100 MG CAP PO PRN (02:00)
[2019-01-02] MEDS ORDERED: ONDANSETRON 4 MG TAB PO PRN (02:00)
[2019-01-02] MEDS ORDERED: GUAIFENESIN 20 MG/ML 5ML CUP PO PRN (02:00)
[2019-01-02] MEDS ORDERED: CALCIUM CARBONATE 500 MG CHEW TAB PO PRN (02:00)
[2019-01-02 02:12] VITALS: BP 116/66; PULSE 81; RESP 16
[2019-01-02] MEDS: PANTOPRAZOLE (EC) 40 MG TAB PO SCH (04:14)
[2019-01-02] MEDS: HYDROmorphONE 2 MG TAB PO PRN ×4 (04:14→19:58)
[2019-01-02] MEDS: ALBUTEROL/IPRATROPIUM (NEB) 3 ML AMP INH SCH ×5 (05:37→20:31)
[2019-01-02 07:44] VITALS: BP 127/62; PULSE 89; RESP 18
[2019-01-02] MEDS: BUDESONIDE (NEB) 0.5MG/2ML AMP INH SCH ×2 (07:52→20:31)
[2019-01-02] MEDS: ENOXAPARIN 40 MG/0.4 ML SYG SC SCH (09:07)
[2019-01-02] MEDS: predniSONE 20 MG TAB PO SCH (09:08)
[2019-01-02] MEDS: BENAZEPRIL 20 MG TAB PO SCH ×2 (09:08→21:06)
[2019-01-02] MEDS: DOCUSATE SODIUM 100 MG CAP PO SCH ×2 (09:08→21:04)
[2019-01-02] MEDS: oxyCODONE (CR) 10 MG TAB [oxyCONTIN] PO SCH ×2 (09:09→21:05)
[2019-01-02] MEDS ORDERED: KETOROLAC 30 MG INJ IV STA (12:56)
--- NOTE | 2019-01-02 12:56 | HP ---
Date/Time of Note Date/Time of Note DATE: 01/02/19 TIME: 12:56 Assessment/Plan VTE Prophylaxis Risk score (from Nsg)>0 risk: 4 SCD applied (from Nsg): No SCD contraindicated: low risk/ambulating Pharmacological prophylaxis: LMWH Lines/Catheters IV Catheter Type (from Nrsg): Saline Lock Assessment/Plan Hospital Course 1 Low back pain due to compression fracture of the T7 vertebral body with 75% anterior height loss, appearing likely acute. There is mild retropulsion of the upper T7 vertebral body, with mild appearing associated central canal stenosis. Mild bilateral foraminal stenosis at T7-T8 related to vertebral body height loss. She has been on chronic steroids because of COPD 2. Shortness of breath likely secondary to chronic obstructive pulmonary disease exacerbation. 3. History of chronic hypoxia on home oxygen. 4. Morbid obesity. 5. History of chronic obstructive pulmonary disease. 6. Hyperlipidemia. 7. History of migraine. 8. S/p and left foot bunion surgery. Assessment/Plan -GI proph. protonix -case manger to find SNF that provide pain meds -DVT proph. Lovenox -pain control -cw oxycontin/dilaudid po -cw gabapentin HPI/ROS Admit Date/Time Admit Date/Time January 01, 2019 at 18:05 Hx of Present Illness This is a 53-year-old female with a past medical history of COPD/sleep apnea, asthma, morbid obesity, hypertension and migraine, who was recently transferred from [facility] to [facility], where pt was not happy with provided care, She said she did not receive any pain meds. She was diagnosed with T12 fracture, T6 and T7 compression fractures due to osteoporosis. PAST MEDICAL HISTORY: 1. Asthma, COPD. 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 3. Hypertension. 4. History of migraines. 5. History of morbid obesity. 6. History of neck pain. PAST SURGICAL HISTORY: and left foot bunion surgery. 1 Low back pain on the left with the CT findings of possible She has been on chronic steroids because of COPD 2. Shortness of breath likely secondary to chronic obstructive pulmonary disease exacerbation. 3. History of chronic hypoxia on home oxygen. 4. Morbid obesity. 5. History of chronic obstructive pulmonary disease. 6. Hyperlipidemia. 7. History of migraine. ROS Musculoskeletal: back pain Skin: bruising, other (nubness) PMH/Family/Social Past Medical History Medical History: high cholesterol, hypertension, urinary tract infection Medications Current Medications Ondansetron HCl (Zofran Inj) 4 mg BRIDGE ORDER PRN IV NAUSEA/VOMITING; Start 01/01/19 at 18:30; Stop 01/02/19 at 18:29 Acetaminophen (Tylenol Tab) 650 mg ER BRIDGE PRN PO .MILD PAIN 1-3 OR TEMP; Start 01/01/19 at 18:30; Stop 01/02/19 at 18:29 Zolpidem Tartrate (Ambien) 5 mg HS PRN PO INSOMNIA; Start 01/02/19 at 00:00 Acetaminophen (Tylenol Tab) 650 mg Q4 PRN PO prn; Start 01/02/19 at 02:00 Albuterol (Proventil 0.083% (Neb)) 2.5 mg Q6H RESP THERAPY PRN NEB SHORTNESS OF BREATH Last administered on 01/02/19at 02:31; Admin Dose 2.5 MG; Start 01/02/19 at 02:00 Benazepril HCl (Lotensin) 20 mg BID PO Last administered on 01/02/19at 09:08; Admin Dose 20 MG; Start 01/02/19 at 09:00 Benzonatate (Tessalon) 100 mg Q4 PRN PO prn; Start 01/02/19 at 02:00 Budesonide (Pulmicort (Neb)) 0.5 mg BID RESP THERAPY INH ; Start 01/02/19 at 09:00 Docusate Sodium (Colace) 100 mg BID PO Last administered on 01/02/19at 09:08; Admin Dose 100 MG; Start 01/02/19 at 09:00 Enoxaparin Sodium (Lovenox) 40 mg DAILY SC Last administered on 01/02/19at 09:07; Admin Dose 40 MG; Start 01/02/19 at 09:00 Guaifenesin (Robitussin Liquid Cup) 100 mg Q6H PRN PO COUGH; Start 01/02/19 at 02:00 Albuterol/ Ipratropium (Duoneb) 3 ml Q4H RESP THERAPY INH Last administered on 01/02/19at 07:51; Admin Dose 3 ML; Start 01/02/19 at 05:00 Montelukast Sodium (Singulair) 10 mg QHS PO ; Start 01/02/19 at 21:00 Ondansetron HCl (Zofran Tab) 4 mg Q6H PRN PO NAUSEA AND/OR VOMITING; Start 01/02/19 at 02:00 Pantoprazole (Protonix Tab) 40 mg DAILY@0600 PO Last administered on 01/02/19at 04:14; Admin Dose 40 MG; Start 01/02/19 at 06:00 Prednisone (Prednisone) 40 mg DAILY PO Last administered on 01/02/19at 09:08; Admin Dose 40 MG; Start 01/02/19 at 09:00 Calcium Carbonate (Tums) 1,000 mg Q4H PRN PO HEARTBURN; Start 01/02/19 at 02:00 Acetaminophen/ Hydrocodone Bitart ([place] (5/325)) 2 tab Q6H PRN PO MODERATE PAIN LEVEL 4-6; Start 01/02/19 at 02:00 Oxycodone HCl (Oxycontin) 10 mg BID PO Last administered on 01/02/19at 09:09; Admin Dose 10 MG; Start 01/02/19 at 09:00 Hydromorphone HCl (Dilaudid) 2 mg Q4H PRN PO SEVERE PAIN LEVEL 7-10 Last administered on 01/02/19at 10:07; Admin Dose 2 MG; Start 01/02/19 at 02:30 Hydroxyzine HCl (Atarax) 25 mg Q6H PRN PO ITCHING; Start 01/02/19 at 02:00 Coded Allergies: levofloxacin (Verified Allergy, Severe, 01/01/19) lorazepam (Verified Allergy, Unknown, 01/01/19) Past Surgical History Past Surgical Hx: other ( and left foot bunion surgery.) Family History Significant Family History: COPD, hypertension Social History Alcohol Use: none Smoking Status: Never smoker Drug Use: none Exam/Review of Systems Vital Signs Vitals Vital Signs Date Temp Pulse Resp B/P (MAP) Pulse Ox O2 O2 Flow FiO2 Time Delivery Rate 01/02/19 88 18 96 Nasal 2.0 07:52 Cannula 01/02/19 98.6 127/62 07:44 (83) Intake and Output 01/01/19 01/01/19 01/02/19 1515:00 23:00 07:00 IntakeIntake Total 670 ml BalanceBalance 670 ml Exam Constitutional: alert, oriented Eyes: nl conjunctiva Respiratory: crackles/rales, diminished breath sounds, labored breathing Cardiovascular: regular rate and rhythm Gastrointestinal: soft Musculoskeletal: joint tenderness, muscle weakness Skin: ecchymosis SINGH ALY January 02, 2019 12:56
[2019-01-02 14:00] VITALS: BP 118/66; PULSE 80; RESP 18
[2019-01-02 20:28] VITALS: BP 133/72; PULSE 78; RESP 20
[2019-01-02] MEDS: MONTELUKAST 10 MG TAB PO SCH (21:06)
[2019-01-02] MEDS: HYDROCODONE/APAP (5/325) TAB PO PRN (22:51)
[2019-01-03] MEDS: ALBUTEROL/IPRATROPIUM (NEB) 3 ML AMP INH SCH ×6 (00:53→20:17)
[2019-01-03] MEDS: HYDROmorphONE 2 MG TAB PO PRN ×6 (01:12→23:30)
[2019-01-03 02:29] VITALS: BP 117/74; PULSE 77; RESP 18
[2019-01-03] MEDS: ZOLPIDEM 5 MG TAB PO PRN (03:07)
[2019-01-03] MEDS: HYDROCODONE/APAP (5/325) TAB PO PRN ×3 (05:15→19:57)
[2019-01-03] MEDS: PANTOPRAZOLE (EC) 40 MG TAB PO SCH (06:07)
[2019-01-03 07:34] VITALS: BP 117/66; PULSE 88; RESP 18
[2019-01-03] MEDS: BUDESONIDE (NEB) 0.5MG/2ML AMP INH SCH ×2 (08:11→20:17)
[2019-01-03] MEDS: predniSONE 20 MG TAB PO SCH (08:36)
[2019-01-03] MEDS: DOCUSATE SODIUM 100 MG CAP PO SCH ×2 (08:36→20:50)
[2019-01-03] MEDS: oxyCODONE (CR) 10 MG TAB [oxyCONTIN] PO SCH ×2 (08:36→20:51)
[2019-01-03] MEDS: BENAZEPRIL 20 MG TAB PO SCH ×2 (08:37→20:52)
[2019-01-03] MEDS: ENOXAPARIN 40 MG/0.4 ML SYG SC SCH (10:09)
--- NOTE | 2019-01-03 11:41 | PN ---
Date/Time of Note Date/Time of Note DATE: 01/03/19 TIME: 11:40 Assessment/Plan VTE Prophylaxis Risk score (from Nsg)>0 risk: 2 SCD applied (from Nsg): Yes Pharmacological prophylaxis: LMWH Lines/Catheters IV Catheter Type (from Nrsg): Saline Lock Urinary Cath still in place: No Assessment/Plan Hospital Course 1 Low back pain due to compression fracture of the T7 vertebral body with 75% anterior height loss, appearing likely acute. There is mild retropulsion of the upper T7 vertebral body, with mild appearing associated central canal stenosis. Mild bilateral foraminal stenosis at T7-T8 related to vertebral body height loss. She has been on chronic steroids because of COPD 2. Shortness of breath likely secondary to chronic obstructive pulmonary disease exacerbation. 3. History of chronic hypoxia on home oxygen. 4. Morbid obesity. 5. History of chronic obstructive pulmonary disease. 6. Hyperlipidemia. 7. History of migraine. 8. S/p and left foot bunion surgery. Assessment/Plan -GI proph. protonix -case manger dc home -narcan is given -DVT proph. Lovenox -pain control -Was not able to tolerate MRI scan procedure again, despite increased dose of morphine, -cw oxycontin/dilaudid po -cw gabapentin Result Diagram: 01/03/19 0425 01/03/19 0425 Results 24hrs Laboratory Tests Test 01/03/19 04:25 White Blood Count 9.5 Red Blood Count 4.06 L Hemoglobin 13.2 Hematocrit 40.5 Mean Corpuscular Volume 99.8 Mean Corpuscular Hemoglobin 32.5 Mean Corpuscular Hemoglobin Concent 32.6 Red Cell Distribution Width 13.6 Platelet Count 245 Mean Platelet Volume 10.1 Immature Granulocytes % 0.500 H Neutrophils % 64.7 Lymphocytes % 23.7 Monocytes % 10.4 Eosinophils % 0.6 Basophils % 0.1 Nucleated Red Blood Cells % 0.0 Immature Granulocytes # 0.050 H Neutrophils # 6.1 Lymphocytes # 2.3 Monocytes # 1.0 H Eosinophils # 0.1 Basophils # 0.0 Nucleated Red Blood Cells # 0.0 Sodium Level 140 Potassium Level 4.0 Chloride Level 103 Carbon Dioxide Level 32 H Anion Gap 5 Blood Urea Nitrogen 27 H Creatinine 0.61 Est Glomerular Filtrat Rate mL/min > 60 Glucose Level 107 Calcium Level 9.2 Subjective 24 Hr Interval Summary Musculoskeletal: back pain Exam/Review of Systems Exam Vitals Vital Signs Date Temp Pulse Resp B/P (MAP) Pulse Ox O2 O2 Flow FiO2 Time Delivery Rate 01/03/19 Nasal 2.0 08:30 Cannula 01/03/19 83 18 93 08:01 01/03/19 98.9 117/66 07:34 (83) Intake and Output 01/02/19 01/02/19 01/03/19 1515:00 23:00 07:00 IntakeIntake Total 200 ml 600 ml 1000 ml BalanceBalance 200 ml 600 ml 1000 ml Constitutional: alert, oriented Respiratory: diminished breath sounds Cardiovascular: regular rate and rhythm Gastrointestinal: soft Musculoskeletal: muscle weakness Results Results 24hrs Laboratory Tests Test 01/03/19 04:25 White Blood Count 9.5 Red Blood Count 4.06 L Hemoglobin 13.2 Hematocrit 40.5 Mean Corpuscular Volume 99.8 Mean Corpuscular Hemoglobin 32.5 Mean Corpuscular Hemoglobin Concent 32.6 Red Cell Distribution Width 13.6 Platelet Count 245 Mean Platelet Volume 10.1 Immature Granulocytes % 0.500 H Neutrophils % 64.7 Lymphocytes % 23.7 Monocytes % 10.4 Eosinophils % 0.6 Basophils % 0.1 Nucleated Red Blood Cells % 0.0 Immature Granulocytes # 0.050 H Neutrophils # 6.1 Lymphocytes # 2.3 Monocytes # 1.0 H Eosinophils # 0.1 Basophils # 0.0 Nucleated Red Blood Cells # 0.0 Sodium Level 140 Potassium Level 4.0 Chloride Level 103 Carbon Dioxide Level 32 H Anion Gap 5 Blood Urea Nitrogen 27 H Creatinine 0.61 Est Glomerular Filtrat Rate mL/min > 60 Glucose Level 107 Calcium Level 9.2 Medications Medication Current Medications Zolpidem Tartrate (Ambien) 5 mg HS PRN PO INSOMNIA Last administered on 01/03/19at 03:07; Admin Dose 5 MG; Start 01/02/19 at 00:00 Acetaminophen (Tylenol Tab) 650 mg Q4 PRN PO prn; Start 01/02/19 at 02:00 Albuterol (Proventil 0.083% (Neb)) 2.5 mg Q6H RESP THERAPY PRN NEB SHORTNESS OF BREATH Last administered on 01/02/19at 02:31; Admin Dose 2.5 MG; Start 01/02/19 at 02:00 Benazepril HCl (Lotensin) 20 mg BID PO Last administered on 01/03/19 08:37; Admin Dose 20 MG; Start 01/02/19 at 09:00 Benzonatate (Tessalon) 100 mg Q4 PRN PO prn; Start 01/02/19 at 02:00 Budesonide (Pulmicort (Neb)) 0.5 mg BID RESP THERAPY INH Last administered on 01/03/19 08:11; Admin Dose 0.5 MG; Start 01/02/19 at 09:00 Docusate Sodium (Colace) 100 mg BID PO Last administered on 01/03/19 08:36; Admin Dose 100 MG; Start 01/02/19 at 09:00 Enoxaparin Sodium (Lovenox) 40 mg DAILY SC Last administered on 01/03/19 10:09 ; Admin Dose 40 MG; Start 01/02/19 at 09:00 Guaifenesin (Robitussin Liquid Cup) 100 mg Q6H PRN PO COUGH; Start 01/02/19 at 02:00 Albuterol/ Ipratropium (Duoneb) 3 ml Q4H RESP THERAPY INH Last administered on 01/03/19 08:00; Admin Dose 3 ML; Start 01/02/19 at 05:00 Montelukast Sodium (Singulair) 10 mg QHS PO Last administered on 01/02/19 21:06; Admin Dose 10 MG; Start 01/02/19 at 21:00 Ondansetron HCl (Zofran Tab) 4 mg Q6H PRN PO NAUSEA AND/OR VOMITING; Start 01/02/19 at 02:00 Pantoprazole (Protonix Tab) 40 mg DAILY@0600 PO Last administered on 01/03/19 06:07; Admin Dose 40 MG; Start 01/02/19 at 06:00 Prednisone (Prednisone) 40 mg DAILY PO Last administered on 01/03/19 08:36; Admin Dose 40 MG; Start 01/02/19 at 09:00 Calcium Carbonate (Tums) 1,000 mg Q4H PRN PO HEARTBURN; Start 01/02/19 at 02:00 Acetaminophen/ Hydrocodone Bitart ([place] (5/325)) 2 tab Q6H PRN PO MODERATE PAIN LEVEL 4-6 Last administered on 01/03/19 05:15; Admin Dose 2 TAB; Start 01/02/19 at 02:00 Oxycodone HCl (Oxycontin) 10 mg BID PO Last administered on 01/03/19at 08:36; Admin Dose 10 MG; Start 01/02/19 at 09:00 Hydromorphone HCl (Dilaudid) 2 mg Q4H PRN PO SEVERE PAIN LEVEL 7-10 Last administered on 01/03/19at 10:04; Admin Dose 2 MG; Start 01/02/19 at 02:30 Hydroxyzine HCl (Atarax) 25 mg Q6H PRN PO ITCHING; Start 01/02/19 at 02:00 SINGH ALY January 03, 2019 11:41
[2019-01-03 13:47] VITALS: BP 112/67; PULSE 99; RESP 18
--- NOTE | 2019-01-03 14:21 | PDOCDIS ---
Discharge Instructions DIAGNOSIS Discharge Diagnosis multiple thoracic vertebrae fracture CONDITION [id number] Patient Condition: [id number] Stable ACTIVITY: [id number] Activity Restrictions: [id number] Slowly Increase Activity Rest between Activity Avoid heavy lifting FOLLOW UP/APPOINTMENTS Follow-up Plan PCP 1 week -pulmonary Md for portable oxygen SINGH ALY January 03, 2019 14:21
[2019-01-03] MEDS ORDERED: NALO4SPR NS (14:37)
--- NOTE | 2019-01-03 14:39 | DS ---
Date/Time of Note Date/Time of Note DATE: 01/03/19 TIME: 14:39 Discharge Summary Admission/Discharge Info Admit Date/Time January 01, 2019 at 18:05 Discharge Date/Time Discharge Diagnosis multiple thoracic vertebrae fracture Patient Condition: Stable Hospital Course This is a 53-year-old female with a past medical history of COPD/sleep apnea, asthma, morbid obesity, hypertension and migraine, who was recently transferred from [facility] to SNF, where pt was not happy with provided care, She said she did not receive any pain meds. She was diagnosed with T12 fracture, T6 and T7 compression fractures due to osteoporosis. PAST MEDICAL HISTORY: 1. Asthma, COPD. 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 3. Hypertension. 4. History of migraines. 5. History of morbid obesity. 6. History of neck pain. PAST SURGICAL HISTORY: and left foot bunion surgery. Impressions: 1 Low back pain due to compression fracture of the T7 vertebral body with 75% anterior height loss, appearing likely acute. There is mild retropulsion of the upper T7 vertebral body, with mild appearing associated central canal stenosis. Mild bilateral foraminal stenosis at T7-T8 related to vertebral body height loss. She has been on chronic steroids because of COPD 2. Shortness of breath likely secondary to chronic obstructive pulmonary disease exacerbation. 3. History of chronic hypoxia on home oxygen. 4. Morbid obesity. 5. History of chronic obstructive pulmonary disease. 6. Hyperlipidemia. 7. History of migraine. 8. S/p and left foot bunion surgery. During hospitalization pt was in med surg. unit. Her pain was controlled with [place], OxyContin and Dilaudid. We asked case arnol to find SNF that provide pain meds. Pt had Pt evauation and we find out that she is improved and able to work longer distance and required less assist. Spoke to pt about possible d/c home and she agreed, we found a home health. Pt has a supplemental oxygen at home. He daughter is willing and able to help her. Home Meds Active Scripts Naloxone HCl nasal spray (Narcan 4 mg/0.1 mL nasal) 4 Mg [place], 4 MG NS .Q2MIN PRN for OPIOID OVERDOSE, #2 SPRAY [place] entire contents in one nostril, may repeat in alternate nostril in 2-3 minutes if no or minimal response Prov:SINGH ALY 01/03/19 Reported Medications Benazepril Hcl* (Benazepril Hcl*) 20 Mg Tablet, 20 MG PO BID, #60 TAB 01/01/19 Ondansetron Hcl* (Zofran*) 4 Mg Tab, 4 MG PO Q6 PRN for NAUSEA AND OR VOMITING, TAB 12/18/18 Hydrocodone/Acetaminophen ([place] 5-325 Tablet) 1 Each Tablet, 2 EACH PO Q6 PRN for prn, TAB 12/18/18 Calcium Carbonate* (Calcium Carbonate*) 600 MG Ca Tab, 1000 MG PO Q4 PRN for prn, TAB 12/18/18 Benzonatate* (Tessalon [place]*) 100 Mg Capsule, 100 MG PO Q4 PRN for prn, CAP 12/18/18 Albuterol Sulfate* (Albuterol Sulfate* Neb) 0.083%-3 Ml Neb, 2.5 MG NEB Q6 PRN for prn, #30 VIAL 12/18/18 Prednisone (Deltasone) 20 Mg Tablet, 40 MG PO DAILY, TAB 12/18/18 Pantoprazole* (Protonix*) 40 Mg Tablet.dr, 40 MG PO DAILY, TAB 12/18/18 Montelukast Sodium* (Singulair*) 10 Mg Tablet, 10 MG PO QHS, #30 TAB 12/18/18 Docusate Sodium* (Docusate Sodium*) 100 Mg Capsule, 100 MG PO BID, #60 CAP 12/18/18 Budesonide* (Pulmicort*) 1 Mg/2 Ml Ampul.neb, 0.5 MG INHALATION BID, #60 AMP 12/18/18 Ipratropium-Albuterol (Ipratropium-Albuterol) 0.5-3 Mg/3 Ml Ampul.neb, 3 ML INHALATION Q4, #30 VIAL 12/18/18 Discontinued Reported Medications Tramadol HCl (Tramadol HCl) 50 Mg Tablet, 50 MG PO Q6H PRN for PAIN, #120 TAB 12/18/18 Hydroxyzine Hcl* (Atarax*) 2 Mg/Ml Syrup, 25 MG PO Q6H PRN for ITCHING, ML 12/18/18 Guaifenesin* (Robitussin*) 100 Mg/5 Ml Syrup, 100 MG PO Q6H PRN for COUGH, ML 12/18/18 Acetaminophen* (Tylophen*) 500 Mg Capsule, 650 MG PO Q4 PRN for prn, TAB 12/18/18 Sodium Chloride* (1/2 NS*) 500 Ml Iv.soln., 1000 ML IV, EA 12/18/18 Nystatin (Nystatin) 100,000 Unit/1 Ml Oral.susp, 5 ML PO QID, #60 ML 12/18/18 Enoxaparin Sodium (Enoxaparin Sodium) 100 Mg/1 Ml Syringe, 40 MG SC DAILY, SYR 12/18/18 Losartan Potassium* (Losartan Potassium*) 25 Mg Tablet, 12.5 MG PO DAILY, TAB 01/01/19 Hydrocodone/Acetaminophen ([place] 5-325 Tablet) 1 Each Tablet, 1 EACH PO Q6 PRN for prn, TAB 12/18/18 Montelukast Sodium* (Montelukast Sodium*) 10 Mg Tablet, 10 MG PO QHS, #30 TAB 10/28/18 Docusate Sodium* (Colace*) 100 Mg Capsule, 100 MG PO BID, #60 CAP 10/28/18 Albuterol Sulfate* (Albuterol Sulfate* Neb) 0.083%-3 Ml Neb, 2.5 MG NEB Q6, #30 VIAL 10/28/18 Budesonide* (Budesonide*) 0.5 Mg/2 Ml Ampul.neb, 0.5 MG INHALATION BID, AMP 10/28/18 Discontinued Scripts Amoxicillin/Potassium Clav (Amox-Clav 875-125 mg Tablet) 875-125 mg Tab, 1 TAB PO BID for 7 Days, #20 TAB Prov:AMERICO MCCLAIN MD 11/02/18 Sulfamethoxazole/Trimethoprim* (Bactrim Ds* Tablet) 1 Each Tablet, 1 TAB PO BID for 7 Days, TAB Prov:AMERICO MCCLAIN MD 11/02/18 [Ipratropium 0.02% (Neb)] 0.5 MG/2.5 ML NEBU No Conflict Check, 0.5 MG HHN Q6 for 30 Days Prov:SINGH ALY 11/02/18 Albuterol Sulfate* (Albuterol Sulfate* Neb) 0.083%-3 Ml Neb, 2.5 MG HHN Q6 for 30 Days Prov:SHEEBASINGH 11/02/18 Losartan-Hydrochlorothiazide (Losartan-HCTZ) 50-12.5 Mg Tab, 1 TAB PO DAILY for 30 Days, TAB Prov:SHEEBASINGH 11/01/18 Mupirocin* (Bactroban*) 2% -22 Gram Oint...g., 14 APPLIC TOP TID, #1 TUB SITE OF APPLICATION: Prov:JOSHUASINGH Gonzalez 11/01/18 Prednisone* (Prednisone*) 10 Mg Tab, 30 MG PO DAILY for 5 Days, TAB Prov:RUBENGILDARDOLisaSINGH 11/01/18 Follow-up Plan PCP 1 week -pulmonary Md for portable oxygen Primary Care Provider Not On Staff Doctor Time spent on discharge: < 30 minutes Pending Labs Laboratory Tests Test 01/03/19 04:25 White Blood Count 9.5 10^3/ul (4.8-10.8) Red Blood Count 4.06 10^6/ul (4.20-5.40) Hemoglobin 13.2 g/dl (12.0-16.0) Hematocrit 40.5 % (37.0-47.0) Mean Corpuscular Volume 99.8 fl (82.0-101.0) Mean Corpuscular Hemoglobin 32.5 pg (29.0-33.0) Mean Corpuscular Hemoglobin Concent 32.6 g/dl (32.0-37.0) Red Cell Distribution Width 13.6 % (11.5-14.5) Platelet Count 245 10^3/UL (140-415) Mean Platelet Volume 10.1 fl (7.4-10.4) Immature Granulocytes % 0.500 % (0.001-0.429) Neutrophils % 64.7 % (39.0-77.0) Lymphocytes % 23.7 % (15.0-51.0) Monocytes % 10.4 % (0.0-11.0) Eosinophils % 0.6 % (0.0-7.0) Basophils % 0.1 % (0.0-2.0) Nucleated Red Blood Cells % 0.0 /100WBC (0.0-0.0) Immature Granulocytes # 0.050 10^3/ul (0.0-0.031) Neutrophils # 6.1 10^3/ul (1.6-7.5) Lymphocytes # 2.3 10^3/ul (0.8-2.9) Monocytes # 1.0 10^3/ul (0.3-0.9) Eosinophils # 0.1 10^3/ul (0.0-0.5) Basophils # 0.0 10^3/ul (0.0-0.1) Nucleated Red Blood Cells # 0.0 10^3/ul (0.0-0.0) Sodium Level 140 mmol/L (135-144) Potassium Level 4.0 mmol/L (3.5-5.1) Chloride Level 103 mmol/L (97-110) Carbon Dioxide Level 32 mmol/L (21-31) Anion Gap 5 (5-13) Blood Urea Nitrogen 27 mg/dl (7-20) Creatinine 0.61 mg/dl (0.44-1.00) Est Glomerular Filtrat Rate mL/min > 60 mL/min (>60) Glucose Level 107 mg/dl (70-220) Calcium Level 9.2 mg/dl (8.4-10.2) SINGH ALY January 03, 2019 14:39
[2019-01-03 19:51] VITALS: BP 137/78; PULSE 99; RESP 20
[2019-01-03] MEDS: MONTELUKAST 10 MG TAB PO SCH (20:51)
[2019-01-04] MEDS: ZOLPIDEM 5 MG TAB PO PRN (00:33)
[2019-01-04] MEDS: ALBUTEROL/IPRATROPIUM (NEB) 3 ML AMP INH SCH ×3 (01:26→09:28)
[2019-01-04] MEDS: HYDROCODONE/APAP (5/325) TAB PO PRN ×2 (02:02→08:53)
[2019-01-04 02:13] VITALS: BP 133/71; PULSE 90; RESP 17
[2019-01-04] MEDS: PANTOPRAZOLE (EC) 40 MG TAB PO SCH (06:11)
[2019-01-04] MEDS: HYDROmorphONE 2 MG TAB PO PRN ×2 (06:11→11:27)
[2019-01-04 08:41] VITALS: BP 133/77; PULSE 106; RESP 18
[2019-01-04] MEDS: DOCUSATE SODIUM 100 MG CAP PO SCH (08:53)
[2019-01-04] MEDS: predniSONE 20 MG TAB PO SCH (08:53)
[2019-01-04] MEDS: BENAZEPRIL 20 MG TAB PO SCH (08:53)
[2019-01-04] MEDS: oxyCODONE (CR) 10 MG TAB [oxyCONTIN] PO SCH (08:53)
[2019-01-04] MEDS: ENOXAPARIN 40 MG/0.4 ML SYG SC SCH (08:56)
[2019-01-04] MEDS: BUDESONIDE (NEB) 0.5MG/2ML AMP INH SCH (09:31)
== END 2019-01-04 12:05 | disposition home or self-care (01) ==
LOC: E/R 16:05 → MS1 18:05 → CANRESERV 23:30 → MS1 01-02 00:28
PROVIDERS: ADMIT Internal Medicine; ATTEND Internal Medicine
DX: M80.08XA Age-related osteoporosis with current pathological fracture, vertebra(e), initial encounter for fracture (principal); J44.9 Chronic obstructive pulmonary disease, unspecified; J45.909 Unspecified asthma, uncomplicated; I10 Essential (primary) hypertension; E66.01 Morbid (severe) obesity due to excess calories; Z68.35 Body mass index [BMI] 35.0-35.9, adult; E78.5 Hyperlipidemia, unspecified; G47.30 Sleep apnea, unspecified; Z99.81 Dependence on supplemental oxygen
CPT/HCPCS: 36415; 80048; 85025; 87081; 94640; 94664; 97161; J1170; J1650; J1885; J2405; J7512; J7999; Z7500; Z7502; Z7610; G0378